=== PATIENT | male | born 1970 | race Caucasian/White ===

== ENCOUNTER 2016-07-26 13:04 | Emergency (ER) | payer OTHER ==
[~2016-07-26] VITALS: Ht 182.9 cm; Wt 99.8 kg
[~2016-07-26 13:04] MED LIST: ASPIRIN EC81 M1 PO; ATORVASTATIN CA80 MG PO; Aspirin PO; COLCHICINE0.6 M2 PO; FLEXERIL10 MG PO; HEPARIN 2525000 UNIT IV; IBUPROFEN600 M1 PO; LOPRESSOR 12.12.5 MG PO; MOTRIN800 MG PO; NAPROSYN375 MG PO; NAPROXEN500 M2 PO; Nitro-Bid TOP; OMEPRAZOLE20 M2 PO; OXYCODONE5 M1 PO; PANTOPRAZOLE SO40 M1 PO; PAROXETINE HCL30 M1 PO; PERCOCET 325 MG1 TA2 PO; PLAVIX 75MG TAB75 MG PO; PREDNISONE20 M1 PO; TIROFIBAN IV; TYLENOL TAB 32325 MG PO
[2016-07-26 14:58] LABS: ABSOLUTE BASOPHIL COUNT 0 /CUMM (0.0-0.2); ABSOLUTE EOSINOPHIL COUNT 0.2 /CUMM (0.0-0.7); ABSOLUTE GRANULOCYTE CT 3.6 /CUMM (1.4-6.5); ABSOLUTE LYMPH COUNT 1.5 /CUMM (1.2-3.4); ABSOLUTE MONOCYTE COUNT 0.5 /CUMM (0.10-0.60); BASOPHIL % 0.3 % (0.0-2.0); EOSINOPHIL % 3.4 % (0-5); HEMATOCRIT 41.7 % (42-52); MEAN CORPUSCULAR HGB 31.3 PG (27.0-31.0); MEAN CORPUSCULAR HGB CONC 34.8 G/DL (33.0-37.0); MEAN CORPUSCULAR VOLUME 89.9 FL (80.0-94.0); MEAN PLATELET VOLUME 9.2 FL (7.4-10.4); PLATELET COUNT 165 /CUMM (130-400); RBC DISTRIBUTION WIDTH 13.4 % (11.5-14.5); RED BLOOD CELL CT 4.64 /CUMM (4.70-6.10); WHITE BLOOD CELL COUNT 5.8 /CUMM (4.8-10.8)
--- NOTE | 2016-07-26 16:44 | ED GI/GU/ABDOMINAL COMPLAINT ---
History of Present Illness General Chief Complaint: Abdominal Pain/Flank Pain Stated Complaint: R SIDE FLANK PAIN Source: patient Exam Limitations: no limitations Vital Signs & Intake/Output Vital Signs & Intake/Output Vital Signs Date Time Temp Pulse Resp B/P Pulse O2 O2 Flow FiO2 Ox Delivery Rate 07/26 1831 85 136/84 07/26 1342 97.4 84 18 136/84 99 Room Air Allergies Coded Allergies: Penicillins (ITCH 04/17/16) poison joelle extract (LIPS SWELL, HIVES, BREATHING IS NOT AFFECTED PER PT ) poison oak extract (LIPS SWELL, HIVES, BREATHING NOT AFFECTED PER PT 04/17/16) poison sumac extract (LIPS SWELL, HIVES, BREATHING NOT AFFECTED PER PT 04/17/16) Reconcile Medications Aspirin (Ecotrin*) 81 MG TABLET.DR 2 TAB PO DAILY HEART/BLOOD (Reported) Colchicine 0.6 MG TABLET 1 TAB PO BID myopericarditis Ibuprofen 600 MG TABLET 1 TAB PO TID MYOPERICARDITIS (Reported) with food Oxycodone HCl/Acetaminophen (Percocet 5-325 MG Tablet) 5 MG-325 MG TABLET 1 TAB PO BID PRN PAIN Pantoprazole Sodium 40 MG TABLET.DR 1 TAB PO DAILY GI (Reported) Paroxetine HCl 30 MG TABLET 1 TAB PO QAM MENTAL HEALTH (Reported) Prednisone 20 MG TABLET 20 MG PO Q8 myopericarditis Triage Note: C/O PAIN IN RLQ SINCE YESTERDAY, WAS SEEN AT [facility] YESTERDAY FOR CHEST PAIN AND WAS DISCHARGED. TODAY FELL ON R SIDE WHICH INCREASED RLQ PAIN. Triage Nurses Notes Reviewed? yes Onset: Abrupt Duration: constant Timing: recent history Quality/Severity: sharpness Severity Numbers: 10 Location: right lower quadrant Radiation: no radiation Activities at Onset: none HPI: Patient is a 46-year-old male who presents to emergency room with a one-day history of right lower quadrant intermittent sharp stabbing severe pain patient states that he has been doubled over in pain when the onset has occurred. Patient was seen yesterday at [facility] for concerns of chest pain and was ruled out. Patient denies any cardiovascular symptoms at the time. Last bowel movement was within the last 24 hours no blood and no melena noted. Patient has able tolerate by mouth with no change in symptoms. No medications given prior to arrival. Patient does have a history of right nephrectomy Past History Travel History Traveled to [place] past 21 day No Medical History Any Pertinent Medical History? 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 BROTHER (hypertension and diabetes). FATHER ( at 44 from cancer). MOTHER Relation not specified for: FH: diabetes mellitus Hx Contributory? No Review of Systems Review of Systems Constitutional: Reports: no symptoms. EENTM: Reports: no symptoms. Respiratory: Reports: no symptoms. Cardiovascular: Reports: no symptoms. GI: Reports: see HPI, abdominal pain. Genitourinary: Reports: no symptoms. Musculoskeletal: Reports: no symptoms. Skin: Reports: no symptoms. Neurological/Psychological: Reports: no symptoms. Hematologic/Endocrine: Reports: no symptoms. Immunologic/Allergic: Reports: no symptoms. All Other Systems: Reviewed and Negative Physical Exam Physical Exam General Appearance: no apparent distress Gastrointestinal: normal bowel sounds, soft, MODERATE RIGHT LOWER QUADRANT PAIN, NO REBOUND TENDERNESS NO PERITONEAL SIGNS Comments: Well-developed well-nourished person in no acute distress HEENT: Normal EENT exam, extraocular motion intact, no nystagmus. Pupils equally round and reactive to light and accommodation. Nose is atraumatic. External auditory canal and Tympanic membranes clear. Pharynx normal. No swelling or edema. Neck: Supple, no lymphadenopathy, normal range of motion without pain or tenderness Back: Nontender, no CVA tenderness. Cardiovascular: Regular rate and rhythms no murmurs rubs or gallops, normal JVP Respiratory: Chest nontender. No respiratory distress.breath sounds clear to auscultation bilaterally Extremity: No edema, no calf tenderness to palpation, normal and equal pulses. Neuro: Alert oriented x3, motor sensory normal, cranial nerves II through XII grossly intact. Skin: No appreciable rash on exposed skin, skin is warm and dry. Psych: Mood and affect is normal, memory and judgment is normal. Core Measures ACS in differential dx? No Severe Sepsis Present: No Septic Shock Present: No Progress Differential Diagnosis: AAA, AMI, appendicitis, biliary colic, bowel obstruction , colon cancer, cholecystitis, diverticulitis, epididymitis, esophageal varices, gastritis, hepatitis, hernia, hemorrhoids, ischemic bowel, inflamm bowel dis, Dinah-Monica tear, orchitis, pancreatitis, prostatitis, peptic ulcer, PUD/GERD, perforated viscous, pyelonephritis, SBO, STD, testicular torsion, ureterolithiasis, urinary retention, urethritis, UTI/pyelo Plan of Care: Orders Procedure Date/time Status CBC WITHOUT DIFFERENTIAL 07/26 1441 Complete BASIC METABOLIC PANEL 07/26 144 Complete URINALYSIS 07/26 1353 Complete Laboratory Tests 07/26/16 1441: Anion Gap 11, Estimated GFR 59 L, BUN/Creatinine Ratio 10.8, Glucose 88, Calcium 9.2, CBC w Diff NO MAN DIFF REQ, RBC 4.64 L, MCV 89.9, MCH 31.3 H, RDW 13.4, MPV 9.2, Gran % 62.0, Lymphocytes % 25.5, Monocytes % 8.8, Eosinophils % 3.4, Basophils % 0.3, Absolute Granulocytes 3.6, Absolute Lymphocytes 1.5, Absolute Monocytes 0.5, Absolute Eosinophils 0.2, Absolute Basophils 0, PUBS MCHC 34.8, Urine Color YEL, Urine Clarity CLEAR, Urine pH 7.0, Ur Specific [place] <= 1.005, Urine Protein NEG, Urine Ketones NEG, Urine Nitrite NEG, Urine Bilirubin NEG, Urine Urobilinogen 0.2, Ur Leukocyte Esterase NEG, Ur Microscopic EXAM NOT REQUIRED, Urine Hemoglobin NEG, Urine Glucose NEG Patient on physical exam was in no apparent distress, was able tolerate by mouth without change in symptoms and denies any nausea or vomiting. CT scan and blood work was unremarkable. Patient was made aware of his results and patient was strongly advised to return to emergency with symptoms worsen in the follow-up with gastroenterology and he will comply. Upon discharge patient looks well and has no questions with his instructions. (DARIO PEÑA,JAKOB) Diagnostic Imaging: Viewed by Me: CT Scan. Radiology Impression: no acute abnormality Initial ED EKG: none Comments: PATIENT: JAKOB GARLAND PRESENT AGE: 46 PATIENT ACCOUNT NO: [id number] : 70 LOCATION: [facility] ORDERING PHYSICIAN: JAKOB PEÑA SERVICE DATE: 07/26/165616 EXAM TYPE: CAT - CT ABD & PELVIS W/O IV CONTRAS EXAMINATION: CT ABDOMEN AND PELVIS WITHOUT CONTRAST CLINICAL INFORMATION: Right lower quadrant abdominal pain. COMPARISON: CT abdomen and pelvis with contrast 12/01/2013. TECHNIQUE: Multidetector volumetric imaging was performed from the superior aspect of the liver through the pubic symphysis. Sagittal and coronal reformatted images were obtained on the technologist's workstation. DLP: 538 mGy-cm. FINDINGS: Limited evaluation of the solid abdominal viscera in the absence of intravenous contrast. LUNG BASES: The visualized lung bases are unremarkable. LIVER, GALLBLADDER, AND BILIARY TREE: The liver is normal in size, shape, and attenuation. No contour deforming hepatic lesion or biliary ductal dilatation is present. The gallbladder is unremarkable with no evidence of radiopaque gallstones, gallbladder wall thickening, or obvious pericholecystic inflammatory changes. PANCREAS: Unremarkable. SPLEEN: Unremarkable. ADRENAL GLANDS: Unremarkable. KIDNEYS AND URETERS: Redemonstrated are postsurgical changes related to right-sided nephrectomy. The left kidney is normal in size. No renal or ureteral stones are identified and there is no hydroureteronephrosis of the left kidney or left renal collecting system. BLADDER: Unremarkable. GASTROINTESTINAL TRACT: Normal anatomic orientation of the stomach relative to the duodenum. Normal caliber of abdominal and pelvic bowel loops, without evidence of obstruction or ileus. No circumferential bowel wall thickening with surrounding inflammatory changes to suggest an underlying infectious or inflammatory enterocolitis. Normal-appearing appendix within the right lower quadrant of the abdomen. No organizing intra-abdominal fluid collections or free intraperitoneal air. ABDOMINAL WALL: No significant hernia is appreciated. LYMPH NODES: No significant abdominal or pelvic adenopathy. VASCULAR: Normal course and caliber of the abdominal aorta and its branching vessels, without aneurysmal dilatation. Limited evaluation for vascular patency in the absence of intravenous contrast. PELVIC VISCERA: Unremarkable. OSSEOUS STRUCTURES: No acute osseous abnormality. Normal alignment of the imaged thoracolumbar spine. No visible destructive osseous lesions. IMPRESSION: No acute findings within the abdomen or pelvis to explain patient symptomatology. Stable postsurgical changes related to right-sided nephrectomy. Departure Departure Disposition: HOME OR SELF CARE Condition: Stable Clinical Impression Primary Impression: Abdominal pain Referrals: MISTY HIRSCH,ULYSSES BARRETT MD,ANGELA Santos (PCP/Family) Additional Instructions: As discussed begin the prescription of Percocet for breakthrough pain. Begin a 24-hour clear liquid and bland diet to rest bowels. If no better tomorrow follow up and establish a medicinal chemist Dr. JAY for further outpatient treatment. If symptoms worsen or she develop a concerning new symptoms return to emergency room immediately Departure Forms: Customer Survey General Discharge Information Prescriptions: Current Visit Scripts Oxycodone HCl/Acetaminophen (Percocet 5-325 MG Tablet) 1 TAB PO BID PRN PAIN #8 TAB
--- NOTE | 2016-07-26 18:01 | CT SCAN REPORT ---
EXAMINATION: CT ABDOMEN AND PELVIS WITHOUT CONTRAST CLINICAL INFORMATION: Right lower quadrant abdominal pain. COMPARISON: CT abdomen and pelvis with contrast 12/01/2013. TECHNIQUE: Multidetector volumetric imaging was performed from the superior aspect of the liver through the pubic symphysis. Sagittal and coronal reformatted images were obtained on the technologist's workstation. DLP: 538 mGy-cm. FINDINGS: Limited evaluation of the solid abdominal viscera in the absence of intravenous contrast. LUNG BASES: The visualized lung bases are unremarkable. LIVER, GALLBLADDER, AND BILIARY TREE: The liver is normal in size, shape, and attenuation. No contour deforming hepatic lesion or biliary ductal dilatation is present. The gallbladder is unremarkable with no evidence of radiopaque gallstones, gallbladder wall thickening, or obvious pericholecystic inflammatory changes. PANCREAS: Unremarkable. SPLEEN: Unremarkable. ADRENAL GLANDS: Unremarkable. KIDNEYS AND URETERS: Redemonstrated are postsurgical changes related to right-sided nephrectomy. The left kidney is normal in size. No renal or ureteral stones are identified and there is no hydroureteronephrosis of the left kidney or left renal collecting system. BLADDER: Unremarkable. GASTROINTESTINAL TRACT: Normal anatomic orientation of the stomach relative to the duodenum. Normal caliber of abdominal and pelvic bowel loops, without evidence of obstruction or ileus. No circumferential bowel wall thickening with surrounding inflammatory changes to suggest an underlying infectious or inflammatory enterocolitis. Normal-appearing appendix within the right lower quadrant of the abdomen. No organizing intra-abdominal fluid collections or free intraperitoneal air. ABDOMINAL WALL: No significant hernia is appreciated. LYMPH NODES: No significant abdominal or pelvic adenopathy. VASCULAR: Normal course and caliber of the abdominal aorta and its branching vessels, without aneurysmal dilatation. Limited evaluation for vascular patency in the absence of intravenous contrast. PELVIC VISCERA: Unremarkable. OSSEOUS STRUCTURES: No acute osseous abnormality. Normal alignment of the imaged thoracolumbar spine. No visible destructive osseous lesions. IMPRESSION: No acute findings within the abdomen or pelvis to explain patient symptomatology. Stable postsurgical changes related to right-sided nephrectomy.
[2016-07-26] MEDS ORDERED: PERCOCET 5-3251 EACH PO (18:19)
[2016-07-26 18:31] VITALS: BP 136/84
== END 2016-07-26 18:32 ==
LOC: ERH 13:04
PROVIDERS: Emergency Medicine
DX: R10.31 Right lower quadrant pain (principal)
CPT/HCPCS: 74176; 81003; 96374

== ENCOUNTER 2016-09-15 15:12 | Emergency (ER) | payer OTHER ==
[~2016-09-15] VITALS: Ht 190.5 cm; Wt 111.6 kg
[~2016-09-15 15:12] MED LIST changes: +PERCOCET 5-3251 EACH PO
--- NOTE | 2016-09-15 16:00 | CT SCAN REPORT ---
EXAMINATION: CT HEAD WITHOUT CONTRAST CLINICAL INFORMATION: Increasing confusion. Evaluate for head injury. COMPARISON: Noncontrast head CT 04/17/2016. TECHNIQUE: Contiguous axial imaging was performed from the skull base to vertex without intravenous administration of contrast. DLP: 529 mGy-cm FINDINGS: No acute intracranial abnormality. No acute intracranial hemorrhage, mass or mass effect or abnormal extra-axial fluid collections. The density within the dural venous sinuses is within normal limits. The ventricles are normal in size, without hydrocephalus. There are no focal areas of hypoattenuation within a vascular distribution to suggest acute transcortical ischemia. The basilar cisterns are patent. No acute calvarial abnormality is identified. Soft tissues appear unremarkable. A small air-fluid level is identified within the right maxillary sinus and there is minimal mucosal thickening of the sinus. There is also minimal mucosal thickening of the bilateral frontal sinuses as well as the ethmoid air cells. The remaining imaged paranasal sinuses and mastoid air cells are well aerated. IMPRESSION: No acute intracranial pathology.
--- NOTE | 2016-09-15 16:31 | ED MVC/FALL/TRAUMA COMPLAINT ---
History of Present Illness General Chief Complaint: Neuro Symptoms/ Deficit Stated Complaint: PER FAMILY: HALLUCINATING,CONFUSION,RECENT FALLS Source: patient Exam Limitations: no limitations Vital Signs & Intake/Output Vital Signs & Intake/Output Vital Signs Date Time Temp Pulse Resp B/P Pulse O2 O2 Flow FiO2 Ox Delivery Rate 09/15 1820 98.8 63 18 141/95 98 Room Air 09/15 1643 63 18 139/86 96 Room Air 09/15 1519 98.3 81 20 129/88 98 Room Air ED Intake and Output 09/16 0000 09/15 1200 Intake Total Output Total Balance Patient 246 lb Weight Allergies Coded Allergies: Penicillins (ITCH 09/15/16) poison joelle extract (LIPS SWELL, HIVES, BREATHING IS NOT AFFECTED PER PT ) poison oak extract (LIPS SWELL, HIVES, BREATHING NOT AFFECTED PER PT 09/15/16) poison sumac extract (LIPS SWELL, HIVES, BREATHING NOT AFFECTED PER PT 09/15/16) Reconcile Medications Amlodipine Besylate 5 MG TABLET 1 TAB PO DAILY BP (Reported) Aspirin (Ecotrin*) 81 MG TABLET.DR 2 TAB PO DAILY HEART/BLOOD (Reported) Colchicine 0.6 MG TABLET 1 TAB PO BID myopericarditis Ibuprofen 600 MG TABLET 1 TAB PO TID MYOPERICARDITIS (Reported) with food Lidocaine 5 % ADH..PATCH 1 PAT TOP DAILY PAIN (Reported) Pantoprazole Sodium 40 MG TABLET.DR 1 TAB PO DAILY GI (Reported) Paroxetine HCl 30 MG TABLET 1 TAB PO QAM MENTAL HEALTH (Reported) Triage Note: TRIAGE: PT TO ER WITH DAUGHTER C/C HEADACHE X 3 DAYS, FELL IN KITCHEN SATURDAY, FELL IN THE BATHROOM SATURDAY AND JUST SAT ONT HE FLOOR AT [facility] ON SATURDAY. NOTE FROM THAT DAUGHTER PROVIDED STATES THAT HE HAS BEEN FORGETTING CONVERSATIONS, IS ALWAYS TIRED AND SHAKEY, THAT HE CAN'T TIE HIS SHOES AND KEEPS HAVING THIS BEWILDERED LOOK ON HIS FACE. DAUGHTER ALSO STATES THAT HE KEEPS FORGETTING CONVERSATIONS. WAS SEEN 2-[address] [facility] ER FOR S/S OF C/P AND LEG SWELLING. DAUGHTER STATES HE FELL FROM THE LEG SWELLING AT THAT TIME. DAUGHTER STATES "THEY DIDN'T REALLY DO ANYTHING, MADE SURE HE COULD WALK AND THEN DISCHARGED HIM. PT MINIMALLY VERBAL AT TRIAGE. PT APPEARS TO BE USING HIS PHONE AT TRIAGE TEXTING. Triage Nurses Notes Reviewed? yes HPI: 46-year-old male arrived to triage to room 4 for evaluation of confusion, memory loss, frequent falls for the past 3 days along with headache. Patient has been having a frontal headache but denies any blurred vision, nausea or vomiting. He also has been experiencing chest pressure the past weeks according to his . The patient has a history of myocarditis, pericarditis but unknown his specific diagnosis because he has been seen by Dr. Keenan akins at [place] and has been told that his heart is fine. He uses lidocaine patches to his chest wall for pain. He has a medical history that has been complicated and has been worked up for the possibility of autoimmune disease. The pain is unspecific at this time in his chest, he is unable to describe it and rate the pain. He is complaining more of his head hurting mild to moderate, achiness. (VANESSA CAMACHO APRN) Past History Travel History Traveled to [place] past 21 day No Medical History Any Pertinent Medical History? 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 BROTHER (hypertension and diabetes). FATHER ( at 44 from cancer). MOTHER Relation not specified for: FH: diabetes mellitus Hx Contributory? No (VANESSA CAMACHO APRN) Review of Systems Review of Systems Constitutional: Reports: see HPI, diaphoresis. Eyes: Denies: no symptoms. Ears, Nose, Throat, Mouth: Denies: no symptoms. Respiratory: Denies: no symptoms. Cardiovascular: Denies: no symptoms. Gastrointestinal/Abdominal: Denies: no symptoms. Genitourinary: Denies: no symptoms. Musculoskeletal: Reports: joint pain, joint swelling. Skin: Denies: no symptoms. Neurological/Psychological: Reports: ataxia, cognitive dysfunction, headache. (VANESSA CAMACHO APRN) Physical Exam Physical Exam General Appearance: well developed/nourished, no apparent distress, alert, awake , comfortable Head: atraumatic, normal appearance Eyes: Bilateral: normal appearance, PERRL, EOMI. Ears, Nose, Throat, Mouth: moist mucous membrane, Tympanic normal Neck: normal inspection, supple, full range of motion, normal alignment Respiratory: normal breath sounds, chest non-tender, no respiratory distress, quiet respiration, lungs clear Cardiovascular: regular rate/rhythm Peripheral Pulses: 2+ radial (R), 2+ radial (L), 2+ dorsalis pedis (R), 2+ dorsalis pedis (L) Gastrointestinal: normal bowel sounds, soft, non-tender Back: normal inspection, normal range of motion Extremities: normal range of motion, pelvis stable Neurologic/Psych: awake, alert, oriented x 3, normal gait Skin: intact, normal color, warm/dry Core Measures ACS in differential dx? Yes Severe Sepsis Present: No Septic Shock Present: No (VANESSA CAMACHO APRN) Progress Differential Diagnosis: ICH, ELECTROLYTE IMBALANCE, acs, MIGRAINE, DELIRIUM, AUTOIMMUNE DISEASE UNDIAGNOSED Plan of Care: Orders Procedure Date/time Status Add-on Test (ER Only) 09/15 1740 Active WESTERGREN SED RATE 09/15 1740 Complete Saline Lock 09/15 171 Active Telemetry/Roofer Vinyl Coating 09/15 1717 Active EKG 09/15 1717 Active Add-on Test (ER Only) 09/15 1639 Active TROPONIN LEVEL 09/15 1539 Complete HIGH SENSITIVITY CRP 09/15 1539 Complete B-TYPE NATRIURETIC PEP (BNP) 09/15 1539 Complete THYROID STIMULATING HORMONE 09/15 1530 Complete ETHANOL 09/15 1530 Complete COMPREHENSIVE METABOLIC PANEL 09/15 1530 Complete CBC WITHOUT DIFFERENTIAL 09/15 1530 Complete Laboratory Tests 09/15/16 1756: ESR Westergren 25 H 09/15/16 1539: Anion Gap 11, Estimated GFR > 60, BUN/Creatinine Ratio 11.7, Glucose 76, Calcium 9.4, Total Bilirubin 0.7, AST 34, ALT 42, Alkaline Phosphatase 62, Troponin I 1.23 *H, C-React Prot High Sens 9.2 H, Cqv-T-Itwulsgdcrk Pept 50.0, Total Protein 7.2, Albumin 4.2, Globulin 3.0, Albumin/Globulin Ratio 1.4, TSH 1.560, CBC w Diff NO MAN DIFF REQ, RBC 5.01, MCV 93.0, MCH 31.6 H, RDW 13.7, MPV 9.5, Gran % 52.5, Lymphocytes % 29.4, Monocytes % 14.8 H, Eosinophils % 2.9, Basophils % 0.4, Absolute Granulocytes 2.8, Absolute Lymphocytes 1.6, Absolute Monocytes 0.8 H, Absolute Eosinophils 0.2, Absolute Basophils 0, PUBS MCHC 33.9 , Serum Alcohol < 10.0 09/15/16 1530: Methadone Screen Cancelled, Barbiturate Screen Cancelled, Ur Phencyclidine Scrn Cancelled, Amphetamines Screen Cancelled, U Benzodiazepines Scrn Cancelled, Urine Cocaine Screen Cancelled, Urine Cannabis Screen Cancelled Diagnostic Imaging: Viewed by Me: Radiology Read. Discussed w/RAD: Radiology Read. CXR Impression: no acute abnormality, no infiltrates, normal size heart, normal mediastinum Initial ED EKG: SINUS BRADYCARDIA WITH NONSPECIFIC st-t WAVE CHANGES Prior EKG: unchanged Comments: PATIENT: JAKOB GARLAND PRESENT AGE: 46 PATIENT ACCOUNT NO: [id number] : 70 LOCATION: [facility] ORDERING PHYSICIAN: CHEMA ORQUE MD SERVICE DATE: 09/15/16-1529 EXAM TYPE: CAT - CT HEAD WO IV CONTRAST EXAMINATION: CT HEAD WITHOUT CONTRAST CLINICAL INFORMATION: Increasing confusion. Evaluate for head injury. COMPARISON: Noncontrast head CT 04/17/2016. TECHNIQUE: Contiguous axial imaging was performed from the skull base to vertex without intravenous administration of contrast. DLP: 529 mGy-cm FINDINGS: No acute intracranial abnormality. No acute intracranial hemorrhage, mass or mass effect or abnormal extra-axial fluid collections. The density within the dural venous sinuses is within normal limits. The ventricles are normal in size, without hydrocephalus. There are no focal areas of hypoattenuation within a vascular distribution to suggest acute transcortical ischemia. The basilar cisterns are patent. No acute calvarial abnormality is identified. Soft tissues appear unremarkable. A small air-fluid level is identified within the right maxillary sinus and there is minimal mucosal thickening of the sinus. There is also minimal mucosal thickening of the bilateral frontal sinuses as well as the ethmoid air cells. The remaining imaged paranasal sinuses and mastoid air cells are well aerated. IMPRESSION: No acute intracranial pathology. DICTATED BY: JUSTINA PETERSEN MD DATE/TIME DICTATED:09/15/161553 FURNACE FIRER:ELIZABET DATE/TIME TRANSCRIBED:09/15/161553 CONFIDENTIAL, DO NOT COPY WITHOUT APPROPRIATE AUTHORIZATION. <Electronically signed in Other Vendor System> SIGNED BY: JUSTINA PETERSEN MD 09/15/16 1600 5:51 PM I spoke to Dr. Lopez about the positive troponin with no ECG changes and he recommended that we call you for medical record since he was being worked up at the time of his last admission for an autoimmune disease. Additional blood work added on. cASE also discussed with Dr. Roque. PATIENT: JAKOB GARLAND PRESENT AGE: 46 PATIENT ACCOUNT NO: [id number] : 70 LOCATION: [facility] ORDERING PHYSICIAN: VANESSA CAMACHO APRN SERVICE DATE: 09/15/16 EXAM TYPE: RAD - XRY-PORTABLE CHEST XRAY EXAMINATION: XR PORTABLE CHEST CLINICAL INFORMATION: Chest pain. COMPARISON: Chest x-ray dated 06/08/2016. TECHNIQUE: Portable AP semierect view of the chest was obtained. FINDINGS: The cardiomediastinal silhouette is within normal limits in size. Slight elevation of the right hemidiaphragm is again seen, unchanged. Lungs are well expanded. No focal consolidation, pulmonary edema, effusion or pneumothorax is seen. Old healed fracture deformity of the right mid clavicle is seen. Bony structures are otherwise unremarkable. IMPRESSION: Unchanged appearance of the chest with no acute cardiopulmonary process seen. DICTATED BY: WILVER HERNÁNDEZ MD DATE/TIME DICTATED:09/15/161750 FURNACE FIRER:ELIZABET DATE/TIME TRANSCRIBED:09/15/161750 CONFIDENTIAL, DO NOT COPY WITHOUT APPROPRIATE AUTHORIZATION. <Electronically signed in Other Vendor System> SIGNED BY: WILVER HERNÁNDEZ MD [id number]- Spoke to Dr. Dobbs at [facility] at [place]. We will transfer the patient down for further cardiac testing, echo and possible cardiac catheterization. According to accepting physician patient had cardiac cath which showed normal coronary arteries back in 2015. Based on his history of myopericarditis along with the possibility of autoimmune disease he is going to a higher level of care. Case discussed again with Dr. Roque and family. Patient has a bed and ambulance has been called. (VANESSA CAMACHO APRN) Departure Departure Time of Disposition: 1826 Disposition: OTHER [facility] (ACUTE) Condition: Stable Clinical Impression Primary Impression: Delirium Secondary Impressions: Elevated troponin Referrals: ANGELA BARRETT MD (PCP/Family) Departure Forms: Customer Survey General Discharge Information (VANESSA CAMACHO APRN) PA/BILL ADJUSTER Co-Sign Statement Statement: ED Attending supervision documentation- [X] I saw and evaluated the patient. I have also reviewed all the pertinent lab results and diagnostic results. I agree with the findings and the plan of care as documented in the PA's/BILL ADJUSTER's documentation. [X] I have reviewed the ED Record and agree with the PA's/BILL ADJUSTER's documentation. [] Additions or exceptions (if any) to the PAs/BILL ADJUSTER's note and plan are summarized below: [] (MYA HIRSCH,CHEMA Cotto)
[2016-09-15 16:39] LABS: ABSOLUTE BASOPHIL COUNT 0 /CUMM (0.0-0.2); ABSOLUTE EOSINOPHIL COUNT 0.2 /CUMM (0.0-0.7); ABSOLUTE GRANULOCYTE CT 2.8 /CUMM (1.4-6.5); ABSOLUTE LYMPH COUNT 1.6 /CUMM (1.2-3.4); ABSOLUTE MONOCYTE COUNT 0.8 /CUMM (0.10-0.60); BASOPHIL % 0.4 % (0.0-2.0); EOSINOPHIL % 2.9 % (0-5); GRANULOCYTE % 52.5 % (42.2-75.2); HEMATOCRIT 46.6 % (42-52); MEAN CORPUSCULAR HGB 31.6 PG (27.0-31.0); MEAN CORPUSCULAR HGB CONC 33.9 G/DL (33.0-37.0); MEAN PLATELET VOLUME 9.5 FL (7.4-10.4); PLATELET COUNT 178 /CUMM (130-400); RBC DISTRIBUTION WIDTH 13.7 % (11.5-14.5); RED BLOOD CELL CT 5.01 /CUMM (4.70-6.10); WHITE BLOOD CELL COUNT 5.3 /CUMM (4.8-10.8)
[2016-09-15] MEDS ORDERED: AMLODIPINE BESYL5 M1 PO (16:55)
[2016-09-15] MEDS ORDERED: LIDOCAINE1 EACH TOP (16:56)
[2016-09-15] MEDS ORDERED: NAPROXEN500 M2 PO (16:57)
--- NOTE | 2016-09-15 17:58 | RADIOLOGY REPORT ---
EXAMINATION: XR PORTABLE CHEST CLINICAL INFORMATION: Chest pain. COMPARISON: Chest x-ray dated 06/08/2016. TECHNIQUE: Portable AP semierect view of the chest was obtained. FINDINGS: The cardiomediastinal silhouette is within normal limits in size. Slight elevation of the right hemidiaphragm is again seen, unchanged. Lungs are well expanded. No focal consolidation, pulmonary edema, effusion or pneumothorax is seen. Old healed fracture deformity of the right mid clavicle is seen. Bony structures are otherwise unremarkable. IMPRESSION: Unchanged appearance of the chest with no acute cardiopulmonary process seen.
[2016-09-15 18:20] VITALS: BP 141/95
== END 2016-09-15 18:47 | disposition short-term general hospital (02) ==
LOC: ERH 15:12
PROVIDERS: Emergency Medicine
DX: R41.0 Disorientation, unspecified (principal); R77.8 Other specified abnormalities of plasma proteins
CPT/HCPCS: 80307; 93005; 93010; G0480

== ENCOUNTER 2017-07-24 11:19 | Emergency (ER) | payer OTHER ==
[~2017-07-24] VITALS: Ht 188 cm; Wt 108.9 kg
[~2017-07-24 11:19] MED LIST changes: +AMLODIPINE BESYL5 M1 PO; +BACLOFEN10 M1 PO; +DEXAMETHASONE4 M1 PO; +LIDOCAINE1 EACH TOP; +VITAMIN B-121000 MC3 PO
--- NOTE | 2017-07-24 11:45 | ED CARDIAC/CP/PALPITATIONS ---
History of Present Illness General Chief Complaint: Chest Pain Stated Complaint: CHEST TIGHTNESS/PAIN Source: patient Exam Limitations: no limitations Allergies Coded Allergies: Penicillins (ITCH 09/15/16) poison joelle extract (LIPS SWELL, HIVES, BREATHING IS NOT AFFECTED PER PT ) poison oak extract (LIPS SWELL, HIVES, BREATHING NOT AFFECTED PER PT 09/15/16) poison sumac extract (LIPS SWELL, HIVES, BREATHING NOT AFFECTED PER PT 09/15/16) Reconcile Medications Amlodipine Besylate 5 MG TABLET 1 TAB PO DAILY BP (Reported) Aspirin (Ecotrin*) 81 MG TABLET.DR 2 TAB PO DAILY HEART/BLOOD (Reported) Baclofen 10 MG TABLET 10 MG PO TID NEUROPATHY Colchicine 0.6 MG TABLET 1 TAB PO DAILY myocarditis (Reported) Cyanocobalamin (Vitamin B-12) 1,000 MCG TABLET 1,000 MCG PO DAILY SUPPLEMENT (Reported) Ibuprofen 600 MG TABLET 300 MG PO BID MYOPERICARDITIS (Reported) Pantoprazole Sodium 40 MG TABLET.DR 1 TAB PO DAILY GI (Reported) Paroxetine HCl 30 MG TABLET 1 TAB PO [facility] MENTAL HEALTH (Reported) Triage Note: PT C/O TIGHTNESS AND PRESSURE/STABBING PAIN SINCE 1030 TODAY. PAIN IS CONSTANT. STATES PAIN STARTED IN LEFT LEG THEN MOVED INTO CHEST. +SOB Triage Nurses Notes Reviewed? yes Onset: Abrupt Duration: hour(s): (1.5) Timing: recent history Quality/Severity: moderate, severe Location: LEFT SIDED CHEST Radiation: DOWN LEFT ARM Activities at Onset: none Prior Chest Pain/Card Workup: NSTEMI HPI: Patient is a 47-year-old male with history of end STEMI, pericarditis presenting to the emergency department with chief complaint of centralized chest pain that radiates to his left arm at times that started this morning suddenly around 10: 30 AM. Patient was sitting down when it started. Denies any associated nausea vomiting or shortness of breath. No palpitations. Nothing seems to make symptoms better or worse. Patient last saw his adjustment supervisor approximately 2-1/2 months ago. Has not taken aspirin in the same amount of time although he knows he is supposed to. Patient not on any blood thinners. Patient does report that he had neck surgery performed on June 06, he had a cervical spine fusion performed. Patient denying any numbness or tingling. No back pain. No neck pain. Also endorsing generalized abdominal discomfort with associated diarrhea and has been going on for the past couple days. Positive tactile fevers and chills. No sick contacts or recent travel. (Merry Almendarez) Vital Signs & Intake/Output Vital Signs & Intake/Output Vital Signs Date Time Temp Pulse Resp B/P B/P Pulse O2 O2 Flow FiO2 Mean Ox Delivery Rate 07/24 1349 97.6 66 18 147/81 98 Nasal 2.0L Cannula 07/24 1259 57 18 122/81 94 Room Air 07/24 1241 71 16 134/85 96 Room Air 07/24 1220 98 07/24 1219 83 18 135/82 98 Room Air 07/24 1130 97.1 75 20 144/90 98 Room Air (Phill HIRSCH,Juan Cotto) Past History Travel History Traveled to [place] past 21 day No Medical History Any Pertinent Medical History? 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 BROTHER (hypertension and diabetes). FATHER ( at 44 from cancer). MOTHER Relation not specified for: FH: diabetes mellitus Hx Contributory? No (Merry Almendarez) Review of Systems Review of Systems Constitutional: Reports: chills, fever. Comments Review of systems: See HPI, All other systems negative. Constitutional, no weight loss HEENT: No visual changes no sore throat no congestion Cardiovascular: No palpitation , orthopnea or ankle swelling Skin, no jaundice no rashes Respiratory: No cough sputum or hemoptysis GI: No nausea no vomiting , POS DIARRHEA : No dysuria No hematuria Muscle skeletal: no back pain, no neck pain, Neurologic: No numbness no confusion NO HEADACHES Psych: No stress anxiety or depression,. Heme/endocrine: No bruising no bleeding no polyuria or polydipsia Immunology: No splenectomy or history of AIDS (Merry Almendarez) Physical Exam Physical Exam General Appearance: well developed/nourished, no apparent distress, alert, awake , comfortable Cardiovascular: regular rate/rhythm Comments: Well-developed well-nourished person in no acute distress HEENT: Pupils equally round and reactive to light and accommodation. Nose is atraumatic. External auditory canal and Tympanic membranes clear. Pharynx normal. No swelling or edema. Neck:IN C-COLLAR Back: Nontender Cardiovascular: Regular rate and rhythms no murmurs rubs or gallops, normal JVP Respiratory: Chest nontender. No respiratory distress.breath sounds clear to auscultation bilaterally Abdomen: Soft, tender to palpation in the left lower quadrant with mild guarding , no rebound tenderness, nondistended, no appreciable organomegaly. Normal bowel sounds. No ascites Extremity: No edema, no calf tenderness to palpation, normal and equal pulses. Neuro: Alert oriented x3 Skin: No appreciable rash on exposed skin, skin is warm and dry. Psych: Mood and affect is normal, memory and judgment is normal. Core Measures ACS in differential dx? Yes CVA/TIA Diagnosis No Sepsis Present: No Sepsis Focused Exam Completed? No (Merry Almendarez) Progress Differential Diagnosis: AMI, aortic dissection, cholecystitis, CHF/pulm edema, musculoskeletal pain, myocarditis, pancreatitis, pericarditis, pneumonia, pulmonary embolism, PVCs/PACs, DIVERTICULITIS Plan of Care: Orders Procedure Date/time Status CTA CHEST-PULMONARY EMBOLISM 07/[address] ABD & PELVIS ANGIOGRAM 07/24 1214 Active TROPONIN LEVEL 07/24 1144 Complete PARTIAL THROMBOPLASTIN TIME 07/24 1144 Complete PROTHROMBIN TIME 07/24 1144 Complete LIPASE 07/24 1144 Complete COMPREHENSIVE METABOLIC PANEL 07/24 1144 Complete CBC WITHOUT DIFFERENTIAL 07/24 1144 Complete EKG 07/24 1120 Active Laboratory Tests 07/24/17 1207: Anion Gap 9, Estimated GFR > 60, BUN/Creatinine Ratio 12.5, Glucose 101 H, Calcium 9.5, Total Bilirubin 0.6, AST 23, ALT 45, Alkaline Phosphatase 66, Troponin I 0.40 *H, Total Protein 6.8, Albumin 4.0, Globulin 2.8, Albumin/ Globulin Ratio 1.4, Lipase 117, PT 11.0, INR 1.05, APTT 27, CBC w Diff NO MAN DIFF REQ, RBC 4.80, MCV 92.5, MCH 31.4 H, RDW 13.1, MPV 9.5, Gran % 67.8, Lymphocytes % 20.9, Monocytes % 9.4 H, Eosinophils % 1.7, Basophils % 0.2, Absolute Granulocytes 3.8, Absolute Lymphocytes 1.2, Absolute Monocytes 0.5, Absolute Eosinophils 0.1, Absolute Basophils 0, PUBS MCHC 34.0 On arrival patient given by mouth aspirin and 2 sublingual nitroglycerin without relief in pain. Positive troponin. Spoke with Dr. Lopez, recommending we contact adjustment supervisor at [place] to see if it would like patient there for cardiac cath. Spoke with Dr. Pollock, recommending we start IV heparin bolus and drip. Guaiac was negative. Patient stable. Patient went for CT of chest and abdomen. Still pending results. Diagnostic Imaging: Viewed by Me: CT Scan. Discussed w/RAD: CT Scan. Initial ED EKG: NSR (66 BPM) Prior EKG: unchanged (Merry Almendarez) Departure Departure Time of Disposition: 1347 Disposition: OTHER [facility] (ACUTE) Condition: Stable Clinical Impression Primary Impression: NSTEMI (non-ST elevated myocardial infarction) Referrals: Gisel Perez MD (PCP/Family) Departure Forms: Customer Survey General Discharge Information (Merry Almendarez) PA/SUIT ATTENDANT Co-Sign Statement Statement: ED Attending supervision documentation- [X] I saw and evaluated the patient. I have also reviewed all the pertinent lab results and diagnostic results. I agree with the findings and the plan of care as documented in the PA's/SUIT ATTENDANT's documentation. [X] I have reviewed the ED Record and agree with the PA's/SUIT ATTENDANT's documentation. [] Additions or exceptions (if any) to the PAs/SUIT ATTENDANT's note and plan are summarized below: [Chest pain since 10:30 with known coronary disease. Patient's troponin is 0.4. Patient's adjustment supervisor [facility] was called and the patient is to be transferred there. Upon started.] (Phill HIRSCH,Juan Cotto) Critical Care Note Critical Care Note Critical Care Time: 30-74 min (Merry Almendarez) [X] I saw and evaluated the patient. I have also reviewed all the pertinent lab results and diagnostic results. I agree with the findings and the plan of care as documented in the PA's/SUIT ATTENDANT's documentation. [X] I have reviewed the ED Record and agree with the PA's/SUIT ATTENDANT's documentation. [] Additions or exceptions (if any) to the PAs/SUIT ATTENDANT's note and plan are summarized below: [Chest pain since 10:30 with known coronary disease. Patient's troponin is 0.4. Patient's adjustment supervisor FRANK[facility] was called and the patient is to be transferred there. Upon started.] (Phill HIRSCH,Juan Cotto) Critical Care Note Critical Care Note Critical Care Time: 30-74 min (Merry Almendarez)
[2017-07-24 12:13] LABS: ABSOLUTE BASOPHIL COUNT 0 /CUMM (0.0-0.2); ABSOLUTE EOSINOPHIL COUNT 0.1 /CUMM (0.0-0.7); ABSOLUTE GRANULOCYTE CT 3.8 /CUMM (1.4-6.5); ABSOLUTE LYMPH COUNT 1.2 /CUMM (1.2-3.4); ABSOLUTE MONOCYTE COUNT 0.5 /CUMM (0.10-0.60); BASOPHIL % 0.2 % (0.0-2.0); EOSINOPHIL % 1.7 % (0-5); GRANULOCYTE % 67.8 % (42.2-75.2); HEMATOCRIT 44.5 % (42-52); MEAN CORPUSCULAR HGB 31.4 PG (27.0-31.0); MEAN CORPUSCULAR VOLUME 92.5 FL (80.0-94.0); MEAN PLATELET VOLUME 9.5 FL (7.4-10.4); PLATELET COUNT 174 /CUMM (130-400); RBC DISTRIBUTION WIDTH 13.1 % (11.5-14.5); WHITE BLOOD CELL COUNT 5.6 /CUMM (4.8-10.8)
[2017-07-24 12:21] LABS: PTT 27 SEC (25-37)
[2017-07-24 13:49] VITALS: BP 147/81
--- NOTE | 2017-07-24 14:51 | CT SCAN REPORT ---
EXAMINATION: CT ANGIOGRAM ABDOMEN AND PELVIS CLINICAL INFORMATION: 47-year-old male with abdominal pain. Evaluate for abdominal aorta aneurysm or diverticulitis. COMPARISON: CT images of the abdomen and pelvis from 07/26/2016. TECHNIQUE: CT angiography of the abdomen and pelvis was performed. The multidetector CT images of the abdomen and pelvis were obtained following the administration of Optiray 320 intravenous contrast. For contrast dose, please refer to the separately dictated chest CT report. Images were reviewed on a dedicated 3-D workstation. DLP: Please refer to the separately dictated chest CT report FINDINGS: HEPATOBILIARY: Liver has normal size, contour and attenuation. Gallbladder is physiologically distended. No radiopaque calculi, gallbladder wall edema or pericholecystic inflammatory change. PANCREAS: Unremarkable. SPLEEN: Unremarkable. ADRENAL GLANDS: No adrenal mass; no acute pathology compared to 07/26/2016. KIDNEYS, URETERS, BLADDER: The right kidney is surgically absent. Left kidney is normal. No nephrolithiasis, hydronephrosis or perinephric edema. The left ureter and urinary bladder are normal. GASTROINTESTINAL TRACT: Stomach is unremarkable. Bowel loops are normal in size. The appendix is normal. There are few scattered colonic diverticula without diverticulitis. No ascites or pneumoperitoneum. ABDOMINAL WALL: Small fat-containing umbilical hernia is unchanged. VASCULAR: The abdominal aorta remains normal in caliber; no aneurysm or dissection. The celiac trunk and its branches are widely patent. The superior and inferior mesenteric arteries are normal. The left kidney is supplied by 2 widely patent renal arteries, and the smaller artery supplies the upper pole. The common iliac, external iliac and internal iliac arteries are normal. LYMPH NODES: Normal. PELVIC VISCERA: Prostate gland and seminal vesicles are unremarkable. No pelvic free fluid. OSSEOUS STRUCTURES: The lumbar vertebra have normal height and alignment. Pelvic bones and proximal femurs remain intact. Sacroiliac joints are normal. IMPRESSION: 1. Abdominal aorta is normal. 2. Scattered colonic diverticula without diverticulitis. No acute findings along the gastrointestinal tract. 3. No acute findings within the abdomen or pelvis compared to 07/26/2016.
--- NOTE | 2017-07-24 15:01 | CT SCAN REPORT ---
EXAMINATION: CT ANGIOGRAM OF THE CHEST WITH CONTRAST (CT PULMONARY ANGIOGRAM FOR PE) CLINICAL INFORMATION: Chest pain. Evaluate for pulmonary embolism. COMPARISON: CXR from 05/13/2017. Chest CT from 06/08/2016. TECHNIQUE: Prior to contrast administration, noncontrast localization images were obtained. Subsequently, multidetector volumetric imaging was performed from the thoracic inlet to below the diaphragms following the administration of 95 mL Optiray 350 intravenous contrast. No contrast reaction reported. Sagittal, coronal, and MIP oblique sagittal reformatted images were obtained on the CT workstation, uploaded to PACS, and reviewed. Total exam dose-length product 1139 mGy-cm FINDINGS: QUALITY OF STUDY/CONTRAST BOLUS: Satisfactory. PULMONARY ARTERIES: No embolic filling defects within the main, lobar or segmental vessels. THORACIC AORTA: Thoracic aorta is normal in caliber; no aneurysm or dissection. There is a bovine configuration of the aortic arch. LUNGS AND PLEURA: Trachea and central airways are widely patent and normal in caliber. Mild, chronic pleural-based scarring at lung apices. Mild paraseptal emphysema. No pulmonary edema, consolidation, pneumothorax or pleural effusion. No interval development of a suspicious nodule or mass. MEDIASTINUM: The heart size is normal. No pericardial effusion. No evidence of septal bowing or right heart strain. The esophagus is unremarkable. The visualized portion of the thyroid gland is normal. LYMPHATICS: No pathologic sized axillary, hilar or mediastinal lymph nodes. UPPER ABDOMEN: No reflux of contrast into the hepatic veins. Note that findings in the abdomen and pelvis were dictated separately. No abdominal aorta aneurysm. No acute findings in the abdomen or pelvis compared to 07/26/2016. OSSEOUS STRUCTURES/CHEST WALL: There is a stable lipoma of the right axilla. Small Schmorl's node at the T6 superior endplate. No suspicious bone lesions. Thoracic vertebra have well preserved height and alignment. IMPRESSION: 1. No pulmonary embolism. 2. Mild paraseptal emphysema. 3. Thoracic aorta remains normal; no aneurysm or dissection. 4. No abdominal aortic aneurysm. No acute findings within the abdomen or pelvis (see separate report) compared to 07/26/2016.
== END 2017-07-24 14:14 | disposition short-term general hospital (02) ==
LOC: ERH 11:19
PROVIDERS: Physician Assistant
DX: I21.4 Non-ST elevation (NSTEMI) myocardial infarction (principal); R07.89 Other chest pain
CPT/HCPCS: 74174; 93005; 93010; 96374; 96375; 99291; J1644

== ENCOUNTER 2017-11-20 15:17 | Inpatient (IN) | payer OTHER ==
[~2017-11-20] VITALS: Ht 188 cm; Wt 102.8 kg
[~2017-11-20 15:17] MED LIST changes: +DIAZEPAM5 M1 PO; +MECLIZINE HCL25 MG PO
--- NOTE | 2017-11-20 15:30 | ED CARDIAC/CP/PALPITATIONS ---
History of Present Illness General Chief Complaint: Chest Pain Stated Complaint: CHEST PAIN Source: patient, old records Exam Limitations: no limitations Vital Signs & Intake/Output Vital Signs & Intake/Output Vital Signs Date Time Temp Pulse Resp B/P B/P Pulse O2 O2 Flow FiO2 Mean Ox Delivery Rate 11/20 2121 20 116/80 96 Room Air 11/20 1909 82 20 114/75 96 Room Air 11/20 1820 62 20 110/74 96 Room Air 11/20 1720 70 20 115/76 96 Room Air 11/20 1637 90 20 126/83 96 Room Air 11/20 1547 98.1 11/20 1535 88 20 118/74 97 Room Air Allergies Coded Allergies: Penicillins (ITCH 10/03/17) poison joelle extract (LIPS SWELL, HIVES, BREATHING IS NOT AFFECTED PER PT ) poison oak extract (LIPS SWELL, HIVES, BREATHING NOT AFFECTED PER PT 10/03/17) poison sumac extract (LIPS SWELL, HIVES, BREATHING NOT AFFECTED PER PT 10/03/17) Triage Note: [facility] C/O CHEST PAIN. PER EMS PT HAD CHEST PAIN AND WOKE UP ON THE GROUND. EMS GAVE 243MG ASA PO AND 2 O.4MG NITRO. PT TOOK 81MG ASA PO PRIOR TO EMS ARRIVAL. PAIN WAS INTIALLY AN 8 OUT OF 10 WITH EMS AND 4/10 U/A AT THE ER. PT C/O A TINGLING SENSATION IN ALL 4 EXTREMITIES. PT DENIES ANY OTHER COMPLAINTS. Triage Nurses Notes Reviewed? yes Onset: Abrupt Duration: day(s): (1), constant Timing: recent history Quality/Severity: moderate, aching Location: central Radiation: no radiation Activities at Onset: none Prior Chest Pain/Card Workup: heart attack Nitro Today/Relief: 0.4 mg x 1, provided by EMS Aspirin Today: 325 mg x 1, provided by EMS Associated Symptoms: syncope HPI: 47-year-old male history of coronary artery disease hypertension renal cancer status post nephrectomy presents to the ER for evaluation after he states he woke up around 7:30 this morning with substernal chest pain nonradiating. He states that's been coming and going throughout the day. He states he is outside doing gardening when the next thing he remembers is the document management consultant above him patient had an unwitnessed syncopal episode unknown period of time. Patient was administered aspirin in route and nitroglycerin without improvement however on my arrival the patient states the pain has since resolved on its own. He denies any associated shortness of breath is also complaining of posterior headache. No neck or back pain arm pain and jaw pain abdominal pain nausea vomiting. His history is significant and he was recently admitted to [facility] for a NSTEMI. he denies etoh, drug or tobacoo use (Jakob Michel) Reconcile Medications Amlodipine Besylate 5 MG TABLET 1 TAB PO DAILY BP (Reported) Aspirin (Sarah Chewable Aspirin) 81 MG TAB.CHEW 81 MG PO DAILY PROPHYLAXIS ( Reported) Diazepam 5 MG TABLET 1 TAB PO Q8H PRN MUSCLE SPASMS (Reported) Hydrochlorothiazide 25 MG TABLET 1 TAB PO DAILY HYPERTENSION (Reported) Pantoprazole Sodium 40 MG TABLET.DR 1 TAB PO DAILY GI (Reported) Paroxetine HCl 30 MG TABLET 1 TAB PO QAM MENTAL HEALTH (Reported) Simvastatin (Simvastatin*) 10 MG TABLET 1 TAB PO QPM HIGH CHOLESTEROL ( Reported) (Lupe HIRSCH,Dario Ahn) Past History Travel History Traveled to [place] past 21 day No Medical History Any Pertinent Medical History? see below for history Neurological: NONE EENT: NONE Cardiovascular: CARDIAC CATH 2011, 2014 MYOCARDITIS Respiratory: obstructive sleep apnea, pulmonary nodules Gastrointestinal: NONE Hepatic: NONE Renal: R RENAL CA R KIDNEY REMOVAL Musculoskeletal: NONE (bilateral endoscopic knee surg) Psychiatric: NONE Endocrine: NONE Blood Disorders: CHRONIC HEP C TREATED INTERFERON Cancer(s): R KIDNEY CA lung nodules TIPPLE OILER/Reproductive: NONE History of MRSA: No History of VRE: No History of CDIFF: No Tetanus Vaccine: 11/29/13 Surgical History Surgical History: CARDIAC CATHETERIZATION, RIGHT-SIDED NEPHRECTOMY Psychosocial History Who do you live with Family Services at Home None What is your primary language Macanese Family History Family History, If Any: MOTHER (hypertension). BROTHER (hypertension and diabetes). FATHER ( at 44 from cancer). MOTHER Relation not specified for: FH: diabetes mellitus Hx Contributory? No (Jakob Michel) Review of Systems Review of Systems Constitutional: Reports: see HPI. Comments Review of systems: See HPI, All other systems negative. Constitutional, no chills no fever HEENT: no sore throat no congestion Cardiovascular: chest pain Skin: no rashes, no change in skin Respiratory: No dyspnea no cough no sputum GI: No nausea no vomiting, : No dysuria No hematuria, no frequency Muscle skeletal: No joint pain, no back pain Neurologic: , no headache Heme/endocrine: No bruising (Jakob Michel) Physical Exam Physical Exam General Appearance: well developed/nourished, alert, awake Cardiovascular: regular rate/rhythm Comments: Well-developed well-nourished person in no acute distress HEENT: Normal EENT exam; PERRL, EOMI. HEAD is atraumatic. moist mucous membranes. Neck: Supple, nontender normal range of motion Back: Nontender, no CVA tenderness. Full range of motion Cardiovascular: Regular rate and rhythms no murmurs rub Respiratory: Chest nontender.There were no bony deformities, no asymmetry. No respiratory distress. Patient speaking in full complete sentences. Breath sounds clear to auscultation bilaterally: NO W/R/R Abdomen: Soft, nontender nondistended, no appreciable organomegaly. Normal bowel sounds. No rebound/guarding Rectal: Heme negative stool. Extremity: No edema, full range of motion of extremities Neuro: Alert oriented x3, motor sensory normal, cranial nerves II through XII grossly intact. There were no obvious focal neurologic abnormalities. Skin: No appreciable rash on exposed skin, skin is warm and dry. Psych: Mood and affect is normal, memory and judgment is normal. Core Measures ACS in differential dx? Yes CVA/TIA Diagnosis No Sepsis Present: No Sepsis Focused Exam Completed? No (Jakob Michel) Progress Differential Diagnosis: AMI, aortic dissection, atrial fibrillation, musculoskeletal pain, pericarditis, pneumonia, pneumothorax, pulmonary embolism, unstable angina, INTOXICATION Plan of Care: Orders Procedure Date/time Status Nothing by Mouth 11/21 B Active CBC WITHOUT DIFFERENTIAL 11/21 599 Active BASIC ELECTROLYTES PLUS BUN&CR 11/21 599 Active TROPONIN LEVEL 11/21 0300 Active EKG 11/21 0300 Active TROPONIN LEVEL 11/20 2100 Active EKG 11/20 2100 Active Add-on Test (ER Only) 11/21 2043 Active CULTURE,URINE 11/21 2043 Active URINALYSIS 11/21 2043 Active Lab Add-on Test 11/21 2035 Active Lab Add-on Test 11/20 2034 Active Saline Lock 11/21 2027 Active Pathway - chart 11/21 2027 Active House Staff 11/21 2027 Active Code Status 11/21 2027 Active Admit to inpatient 11/21 1951 Active Patient Data 11/20 1844 Active Add-on Test (ER Only) 11/20 1717 Active URINE DRUG SCREEN FOR ER ONLY 11/20 1623 Complete THYROID STIMULATING HORMONE 11/20 1543 Active PARTIAL THROMBOPLASTIN TIME 11/20 1543 Complete PHOSPHORUS 11/20 1543 Active MAGNESIUM 11/20 1543 Active GLYCOSYLATED HGB 11/20 1543 Active FREE T4 11/20 1543 Active D-DIMER 11/20 1543 Complete CREATINE PHOSPHOKINASE 11/20 1543 Active B-TYPE NATRIURETIC PEP (BNP) 11/20 1543 Active Telemetry/Supervisor Money Room 11/20 1530 Active TROPONIN LEVEL 11/20 1528 Active PROTHROMBIN TIME 11/20 1528 Complete ETHANOL 11/20 1528 Active COMPREHENSIVE METABOLIC PANEL 11/20 1528 Active CBC WITHOUT DIFFERENTIAL 11/20 1528 Complete EKG 11/20 1523 Active TRC EVALUATION (GEN) 11/20 UNK Active VTE Mechanical Prophylaxis 11/20 UNK Active Vital Signs 11/20 UNK Active MISTAKE 11/20 UNK Active Precautions 11/20 UNK Active NIH Stroke Scale 11/20 UNK Active Intake & Output 11/20 UNK Active Hemoccult 11/20 UNK Active Current Medications Sig/Elian Start time Last Medication Dose Stop Time Status Admin Aspirin 81 MG DAILY 11/21 0900 AC (Aspirin) Omeprazole 40 MG DAILY AC 11/21 0700 AC (Prilosec) Acetaminophen 650 MG Q6P PRN 11/20 2029 AC (Tylenol) Atorvastatin Calcium 80 MG 1700 11/20 2030 AC (Lipitor) Morphine Sulfate 2 MG Q4P PRN 11/20 2029 AC (MORPHINE SULFATE) Laboratory Tests 11/20/17 2100: Troponin I Pending 11/20/17 1825: Urine Opiates Screen < 100, Methadone Screen < 40, Barbiturate Screen < 60, Ur Phencyclidine Scrn < 6.00, Amphetamines Screen < 100, U Benzodiazepines Scrn < 85, Urine Cocaine Screen < 50, Urine Cannabis Screen < 5.00 11/20/17 1543: Anion Gap 9, Estimated GFR > 60, BUN/Creatinine Ratio 12.5, Glucose 90, Hemoglobin A1c Pending, Calcium 9.5, Phosphorus 3.5, Magnesium 1.9, Total Bilirubin 0.7, AST 24, ALT 40, Alkaline Phosphatase 77, Creatine Kinase 67, Troponin I 0.33 *H, Rwt-E-Sxzazdhlopy Pept 103, Total Protein 7.2, Albumin 4.3, Globulin 2.9, Albumin/Globulin Ratio 1.5, TSH 1.840, Free T4 1.19, PT 11.3, INR 1.04, APTT 29, D-Dimer High Sensitivty < 200, CBC w Diff NO MAN DIFF REQ, RBC 4.99, MCV 91.2, MCH 31.1 H, MCHC 34.2, RDW 12.9, MPV 9.7, Gran % 68.2, Lymphocytes % 20.1 L, Monocytes % 9.6 H, Eosinophils % 1.9, Basophils % 0.2, Absolute Granulocytes 4.1, Absolute Lymphocytes 1.2, Absolute Monocytes 0.6, Absolute Eosinophils 0.1, Absolute Basophils 0, Serum Alcohol < 10.0 11/20/17 1533: D-Dimer High Sensitivty Cancelled Microbiology 11/21 2043 URINE ROUT: Urine Culture - ORD Patient denies pain on my initial evaluation resting comfortably CAT scan labs ordered case discussed with Dr. Andrade agrees with plan 1630 D/W DR BASHIR- ADVISED PT CAN GO TO TELE, DOES NOT REQUIRE ICU, HEPARIN GTT, NPO FOR POSSIBLE TRANSFER FOR CATH IN AM 1650 Dario Andrade MD evaluated the patient, patient now states he has pain 7 out of 10 not improved with nitroglycerin paste and sublingual nitroglycerin morphine ordered discussed with the plan of care and need for admission which she is in agreement with CASE D/W DR FERREIRA WILL ADMIT Diagnostic Imaging: Viewed by Me: Radiology Read, CT Scan. Discussed w/RAD: Radiology Read, CT Scan. Radiology Impression: PATIENT: JAKOB GARLAND PRESENT AGE: 47 PATIENT ACCOUNT NO: [id number] : 70 LOCATION: [facility] ORDERING PHYSICIAN: Jakob PEÑA SERVICE DATE: 11/20/17 EXAM TYPE: RAD - XRY-PORTABLE CHEST XRAY EXAMINATION: XR PORTABLE CHEST CLINICAL INFORMATION: Syncope. Chest pain. COMPARISON: 10/26/2017. TECHNIQUE: Portable frontal view of the chest was obtained. FINDINGS: The lungs are well expanded. There is no focal consolidation, edema, or effusion. No pneumothorax. The cardiomediastinal silhouette is within normal limits. No acute osseous abnormality. Cervical fusion hardware noted. IMPRESSION: No acute pulmonary findings. DICTATED BY: Yordy Mcelroy MD DATE/TIME DICTATED:11/20/171608 HOTEL STAFF MEMBER:ELIZABET DATE/TIME TRANSCRIBED:11/20/171608 CONFIDENTIAL, DO NOT COPY WITHOUT APPROPRIATE AUTHORIZATION. <Electronically signed in Other Vendor System> SIGNED BY: Yordy Mcelroy MD 11/20/17 1614, PATIENT: JAKOB GARLAND PRESENT AGE: 47 PATIENT ACCOUNT NO: [id number] : 70 LOCATION: [facility] ORDERING PHYSICIAN: Jakob PEÑA SERVICE DATE: 11/20/17 EXAM TYPE: CAT - CT HEAD WO IV CONTRAST EXAMINATION: CT HEAD WITHOUT CONTRAST CLINICAL INFORMATION: Syncope. Headache. COMPARISON: TECHNIQUE: Contiguous axial imaging was performed from the skull base to vertex without intravenous contrast. DLP: 541 mGy-cm. FINDINGS: There is no evidence of acute intracranial hemorrhage or territorial infarction. No abnormal mass effect or midline shift is seen. Gloria to white matter differentiation is well preserved. No extra-axial fluid collections are identified. No hydrocephalus. No significant volume loss. There is no abnormal attenuation within the brain parenchyma. The osseous structures and soft tissues are normal. The mastoid air cells and visualized portions of the paranasal sinuses are well aerated. IMPRESSION: No acute intracranial pathology. DICTATED BY: Yordy Mcelroy MD DATE/TIME DICTATED:11/20/171648 HOTEL STAFF MEMBER:ELIZABET DATE/ TIME TRANSCRIBED:11/20/171648 CONFIDENTIAL, DO NOT COPY WITHOUT APPROPRIATE AUTHORIZATION. <Electronically signed in Other Vendor System> SIGNED BY: Yordy Mcelroy MD 11/20/17 1655 Initial ED EKG: normal intervals, normal p-waves, normal QRS complex, normal sinus rhythm Prior EKG: unchanged Rhythm Strip: normal sinus rhythm (Salazar PEÑA,Jakob) Comments: Dr. Bashir called after reviewing Epic records. He recommends discontinuing heparin drip at this time. (Derik Montanez MD) Departure Departure Time of Disposition: 174 Disposition: STILL A PATIENT Condition: Stable Clinical Impression Primary Impression: NSTEMI (non-ST elevated myocardial infarction) Secondary Impressions: Syncope Referrals: Chris HIRSCH,Gisel (PCP/Family) Departure Forms: Customer Survey General Discharge Information Admission Note Spoke With: Chris Ferreira MD Documentation of Exam: Documentation of any treatments & extenuating circumstances including Concerns Regarding Discharge (functional status, medication knowledge or non-compliance, living conditions, etc.) that warrant an admission rather than observation: trend troponin's IV heparin cardiology consult premature discharge would BE medically harmful. (Jakob Michel) PA/SUPERVISOR INSPECTING Co-Sign Statement Statement: ED Attending supervision documentation- [X] I saw and evaluated the patient. I have also reviewed all the pertinent lab results and diagnostic results. I agree with the findings and the plan of care as documented in the PA's/SUPERVISOR INSPECTING's documentation. Patient presents for evaluation of a syncopal episode prior to arrival. Physical examination reveals a conversant gentleman with a nonfocal neurologic examination. [] I have reviewed the ED Record and agree with the PA's/SUPERVISOR INSPECTING's documentation. [] Additions or exceptions (if any) to the PAs/SUPERVISOR INSPECTING's note and plan are summarized below: [] (Lupe HIRSCH,Dario Ahn) PA/SUPERVISOR INSPECTING Co-Sign Statement Statement: ED Attending supervision documentation- [] I saw and evaluated the patient. I have also reviewed all the pertinent lab results and diagnostic results. I agree with the findings and the plan of care as documented in the PA's/SUPERVISOR INSPECTING's documentation. [] I have reviewed the ED Record and agree with the PA's/SUPERVISOR INSPECTING's documentation. [] Additions or exceptions (if any) to the PAs/SUPERVISOR INSPECTING's note and plan are summarized below: [] (Lisseth HIRSCH,Derik) Critical Care Note Critical Care Note Critical Care Time: non-applicable (Jakob Michel)
[2017-11-20 15:54] LABS: ABSOLUTE BASOPHIL COUNT 0 /CUMM (0.0-0.2); ABSOLUTE EOSINOPHIL COUNT 0.1 /CUMM (0.0-0.7); ABSOLUTE GRANULOCYTE CT 4.1 /CUMM (1.4-6.5); ABSOLUTE LYMPH COUNT 1.2 /CUMM (1.2-3.4); ABSOLUTE MONOCYTE COUNT 0.6 /CUMM (0.10-0.60); BASOPHIL % 0.2 % (0.0-2.0); EOSINOPHIL % 1.9 % (0-5); GRANULOCYTE % 68.2 % (42.2-75.2); HEMATOCRIT 45.5 % (42-52); MEAN CORPUSCULAR HGB 31.1 PG (27.0-31.0); MEAN CORPUSCULAR HGB CONC 34.2 G/DL (33.0-37.0); MEAN CORPUSCULAR VOLUME 91.2 FL (80.0-94.0); MEAN PLATELET VOLUME 9.7 FL (7.4-10.4); PLATELET COUNT 188 /CUMM (130-400); RBC DISTRIBUTION WIDTH 12.9 % (11.5-14.5); RED BLOOD CELL CT 4.99 /CUMM (4.70-6.10)
[2017-11-20 16:11] LABS: PT 11.3 SEC (9.4-12.5)
--- NOTE | 2017-11-20 16:14 | RADIOLOGY REPORT ---
EXAMINATION: XR PORTABLE CHEST CLINICAL INFORMATION: Syncope. Chest pain. COMPARISON: 10/26/2017. TECHNIQUE: Portable frontal view of the chest was obtained. FINDINGS: The lungs are well expanded. There is no focal consolidation, edema, or effusion. No pneumothorax. The cardiomediastinal silhouette is within normal limits. No acute osseous abnormality. Cervical fusion hardware noted. IMPRESSION: No acute pulmonary findings.
--- NOTE | 2017-11-20 16:55 | CT SCAN REPORT ---
EXAMINATION: CT HEAD WITHOUT CONTRAST CLINICAL INFORMATION: Syncope. Headache. COMPARISON: 10/26/2017 TECHNIQUE: Contiguous axial imaging was performed from the skull base to vertex without intravenous contrast. DLP: 541 mGy-cm. FINDINGS: There is no evidence of acute intracranial hemorrhage or territorial infarction. No abnormal mass effect or midline shift is seen. Gloria to white matter differentiation is well preserved. No extra-axial fluid collections are identified. No hydrocephalus. No significant volume loss. There is no abnormal attenuation within the brain parenchyma. The osseous structures and soft tissues are normal. The mastoid air cells and visualized portions of the paranasal sinuses are well aerated. IMPRESSION: No acute intracranial pathology.
[2017-11-20] MEDS ORDERED: SIMVASTATIN10 M1 PO (17:23)
[2017-11-20] MEDS ORDERED: HYDROCHLOROTHIA25 M1 PO (17:23)
[2017-11-20] MEDS ORDERED: BAYER CHEWABLE81 MG PO (17:24)
[2017-11-20 17:36] LABS: PTT 29 SEC (25-37)
--- NOTE | 2017-11-20 20:54 | History & Physical ---
Annika Sanchez MD 11/20/172052: General Information and HPI MD Statement: I have seen and personally examined JAKOB GARLAND and documented this H&P. The patient is a 47 year old M who presented with a patient stated chief complaint of [loss of consciousness, chest pain]. Source of Information: patient, old records Exam Limitations: no limitations History of Present Illness: Patient is a 47-year-old male with past medical history of recurrent myopericarditis, multiple hospitalizations for syncope found to have severe cervical stenosis status post cervical spine fusion, status post cardiac catheterization 3 (no history of stents), recent hospitalization at [facility] 1 week prior to this admission for similar symptoms now presenting with an unwitnessed syncopal episode and chest pain. Patient states that at approximately 6:30 AM he woke up with epigastric chest pain described as a pressure/stabbing sensation radiating to his right breast and down his arms and feet. Patient reports numbness and tingling down both his arms. Patient states that pain is not exacerbated by movement or relieved by rest. Patient states that aside from his medications which include aspirin he did not take any other medication for the pain. Patient states that the pain did not subside over the course of the day. States that at approximately noon he went to check his mail and walked approximately 1/10 mile and became short of breath. After which he walked back to his kitchen and passed out. States that the next thing he remembers is having EMS at his side after he was found by his son who returned home from school in the afternoon. Patient denies any prodromal symptoms of warmth, diaphoresis, palpitations, nausea, lightheadedness , dizziness prior to this episode. Patient states that overnight he woke up a few times with palpitations however did not notice this during the day. Patient states after his syncopal episode he felt nauseous and was diaphoretic. Patient denies any loss of bladder or bowel function. Patient was given 243 mg of aspirin by mouth and nitroglycerin 0.4mg 2 in the field with improvement of his chest pain initially an 8 out of 10 sided to a 4 out of 10. Patient denies any fever, chills, abdominal pain, vomiting, hematuria/dysuria. Patient reports over the past few weeks he has had alternating diarrhea and constipation. Denies any melena, bright red blood per stool, hematemesis. Patient reports that he had bilateral lower extremity swelling this past week and was recently started on hydrochlorothiazide 25 mg by his primary care one day prior to admission. Patient states that one week ago he had a similar presentation and was taken to [place] where he was found to have elevated troponin. An echocardiogram was done however patient does not recall the results. Per the records patient has had multiple episodes of syncope with chronically elevated troponin and extensive workup with multiple cardiac caths requiring no stents. Past medical history: As above Past surgical history: Status post right nephrectomy, cervical spinal fusion, bilateral meniscal tears, history of retinal detachment Family history: Significant for mother - heart failure, grandmother- SC, in 60s Social history: Patient is a former smoker, states that he quit in 2003 previously smoking 1 pack per day for 18 years, denies alcohol use or other illicit drug use Patient in the ED received morphine, nitroglycerin and was initially started on an IV heparin drip after speaking with cardiology. Due to chronically elevated troponin and no significant EKG changes, IV heparin drip was stopped. Allergies/Medications Allergies: Coded Allergies: Penicillins (ITCH 10/03/17) poison joelle extract (LIPS SWELL, HIVES, BREATHING IS NOT AFFECTED PER PT ) poison oak extract (LIPS SWELL, HIVES, BREATHING NOT AFFECTED PER PT 10/03/17) poison sumac extract (LIPS SWELL, HIVES, BREATHING NOT AFFECTED PER PT 10/03/17) Past History Travel History Traveled to [place] past 21 day No Medical History Neurological: NONE EENT: NONE Cardiovascular: hypertension, hyperlipidemia, CARDIAC CATH 2011, 2014 MYOCARDITIS Respiratory: obstructive sleep apnea, pulmonary nodules Gastrointestinal: NONE Hepatic: hepatitis C Renal: nephrectomy, R RENAL CA R KIDNEY REMOVAL Musculoskeletal: spinal stenosis (bilateral endoscopic knee surg) Psychiatric: depression Endocrine: NONE Blood Disorders: CHRONIC HEP C TREATED INTERFERON Cancer(s): R KIDNEY CA lung nodules 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 BROTHER (hypertension and diabetes). FATHER ( at 44 from cancer). MOTHER Relation not specified for: FH: diabetes mellitus Psychosocial History Who Do You Live With? spouse Services at Home: None Primary Language: Thai ETOH Use: denies use Illicit Drug Use: denies illicit drug use Functional Ability ADLs Independent: dressing, eating, toileting, bathing. Ambulation: independent IADLs Independent: shopping, housework, finances, food prep, telephone, transportation , medication admin. Review of Systems Review of Systems Constitutional: Reports: unexplained weight loss (20 lb over past few weeks). EENTM: Reports: blurred vision, double vision. Cardiovascular: Reports: chest pain, palpitations, syncope. Respiratory: Reports: short of breath. GI: Reports: nausea. Genitourinary: Reports: no symptoms. Musculoskeletal: Reports: see HPI (right foot pain). Skin: Reports: no symptoms. Neurological/Psychological: Reports: numbness, tingling. Hematologic/Endocrine: Reports: no symptoms. Immunologic/Allergic: Reports: no symptoms. Exam & Diagnostic Data Last 24 Hrs of Vital Signs/I&O Vital Signs Date Time Temp Pulse Resp B/P B/P Pulse O2 O2 Flow FiO2 Mean Ox Delivery Rate 11/20 1909 82 20 114/75 96 Room Air 11/20 1820 62 20 110/74 96 Room Air 11/20 1720 70 20 115/76 96 Room Air 11/20 1637 90 20 126/83 96 Room Air 11/20 1547 98.1 11/20 1535 88 20 118/74 97 Room Air Intake & Output 11/20 1600 11/20 0800 11/20 0000 Intake Total 0 Output Total Balance 0 Intake, Oral 0 Patient 228 lb Weight Weight Reported by Patient Measurement Method Physical Exam General Appearance Alert, Oriented X3, Cooperative, No Acute Distress Skin No Rashes Skin Temp/Moisture Exam: Warm/Dry Sepsis Skin Exam (color): Normal for Ethnicity HEENT Atraumatic, PERRLA, EOMI, Mucous Membr. moist/pink Neck Supple, No JVD, +2 Carotid Pulse wo Bruit, No LAD Lymphatic Cervical nl Cardiovascular Regular Rate, Normal S1, Normal S2, No Murmurs Lungs Clear to Auscultation, Normal Air Movement Abdomen Normal Bowel Sounds, Soft, No Tenderness, No Hepatospenomegaly, No Masses Neurological Normal Speech, Strength at 5/5 X4 Ext, Normal Tone, Sensation Intact, Cranial Nerves 3-12 NL Extremities No Clubbing, No Cyanosis, No Edema, Normal Pulses, No Tenderness/ Swelling Vascular Normal Pulses, Pulses Symmetrical Last 24 Hrs of Labs/Abel: Laboratory Tests 11/20/17 1825: Urine Opiates Screen < 100, Methadone Screen < 40, Barbiturate Screen < 60, Ur Phencyclidine Scrn < 6.00, Amphetamines Screen < 100, U Benzodiazepines Scrn < 85, Urine Cocaine Screen < 50, Urine Cannabis Screen < 5.00 11/20/17 1543: Anion Gap 9, Estimated GFR > 60, BUN/Creatinine Ratio 12.5, Glucose 90, Hemoglobin A1c Pending, Calcium 9.5, Phosphorus 3.5, Magnesium 1.9, Total Bilirubin 0.7, AST 24, ALT 40, Alkaline Phosphatase 77, Creatine Kinase 67, Troponin I 0.33 *H, Kqs-[id number]-Xderacfpmtq Pept Pending, Total Protein 7.2, Albumin 4.3, Globulin 2.9, Albumin/Globulin Ratio 1.5, TSH Pending, Free T4 Pending, PT 11.3, INR 1.04, APTT 29, D-Dimer High Sensitivty < 200, CBC w Diff NO MAN DIFF REQ, RBC 4.99, MCV 91.2, MCH 31.1 H, MCHC 34.2, RDW 12.9, MPV 9.7, Gran % 68.2, Lymphocytes % 20.1 L, Monocytes % 9.6 H, Eosinophils % 1.9, Basophils % 0.2, Absolute Granulocytes 4.1, Absolute Lymphocytes 1.2, Absolute Monocytes 0.6, Absolute Eosinophils 0.1, Absolute Basophils 0, Serum Alcohol < 10.0 11/20/17 1533: D-Dimer High Sensitivty Cancelled Microbiology 11/21 2043 URINE ROUT: Urine Culture - ORD Diagnostic Data EKG Results NSR, 75, QTC: 425, T wave flattening aVF and V1 CXR Results No acute cardiopulmonary process Other Results CT head: No acute intracranial pathology. Assessment/Plan Assessment: Patient is a 47-year-old male with past medical history of recurrent myopericarditis, EZE on CPAP, HTN, Hepatitis C s/p interferon, multiple hospitalizations for syncope found to have severe cervical stenosis status post cervical spine fusion, status post cardiac catheterization 3 (no history of stents), recent hospitalization at [facility] 1 week prior to this admission for similar symptoms now presenting with an unwitnessed syncopal episode and chest pain. Patient on admission had stable vital signs, chest pain improved with nitroglycerin and patient is currently chest pain free. Patient's troponin was elevated to 0.33, however this appears to be chronically elevated with previous troponin in October of 0.31. Patient's EKG did not show any signficant ST or T wave changes. Althought patient's ZO risk score is elevated (4 points - giving him a 20% risk at 14 days of all cause mortality, new/recurrent SC or severe ischemia requiring vascularization) he recently had a cardiac cath in July of 2017 which was clear. Patient's syncopal episode is of unclear etiology. He recently was seen at [facility] 1 week prior and had a Holter monitor recently with Dr. Stovall which reportedly showed no arrhythmia. Patient has had recurrent episodes of syncope requiring multiple admissions. In April of 2017 patient was found to have severe cervical stenosis and underwent a cervical spinal fusion. Since then patient has had multiple episodes of syncope over the past few months. Despite previous extensive work up it is unclear what the etiology of these syncopal episodes is. 1. Chest pain - rule out ACS 2. Chronically elevated troponin 3. Unwitnessed syncopal episode of unclear etiology, history of recurrent syncopal episodes 4. History of cervical radiculopathy and severe cervical stenosis s/p cervical spinal fusion 5. History of EZE on CPAP 6. History of HTN, Hepatitis C s/p interferon, RCC s/p R nephrectomy Plan: Admit to tele Continuous telemetry monitoring Serial EKG and trop Cardiology consult with Dr. Lopez - spoke to Dr. Lopez, will continue to monitor off IV heparin at this time Obtain records from recent admission at [facility] 1 week prior including ECHO results Nitro PRN pain Oxygen supplementation as needed Continue home medications: aspirin, simvistatin, protonix, paxil, norvasc NPO pending EKG and trops and further evaluation by cardiology Continue CPAP at night for EZE Neurochecks Consider neuro consult in AM ESR, CRP, U/A DVT PPx: Lovenox, ALPS Diet: NPO Code: Full code As Ranked By This Provider Problem List: 1. Syncope and collapse 2. Chest pain 3. Troponin level elevated Core Measures/Misc (04/07) Acute Coronary Syndrome ACS Diagnosis: No Congestive Heart Failure Congestive Heart Failure Diagnosis No Cerebrovascular Accident CVA/TIA Diagnosis: No VTE (View Protocol) VTE Risk Factors Age>40 No Mechanical VTE Prophylaxis d/t N/A MechProphylax Ordered No VTE Pharm Prophylaxis d/t NA PharmProphylax ordered Sepsis (View protocol) Sepsis Present: No Wilbert Mota 11/21/17 0139: General Information and HPI Allergies/Medications Home Med list Amlodipine Besylate 5 MG TABLET 1 TAB PO DAILY BP (Reported) Aspirin (Sarah Chewable Aspirin) 81 MG TAB.CHEW 81 MG PO DAILY PROPHYLAXIS ( Reported) Diazepam 5 MG TABLET 1 TAB PO Q8H PRN MUSCLE SPASMS (Reported) Hydrochlorothiazide 25 MG TABLET 1 TAB PO DAILY HYPERTENSION (Reported) Ibuprofen 600 MG TABLET 1 TAB PO TID pain (Reported) with food Nitroglycerin (Nitroglycerin Patch) 0.4 MG/HOUR PATCH.TD24 1 PATCH TD DAILY PRN CHEST PAIN (Reported) Pantoprazole Sodium 40 MG TABLET.DR 1 TAB PO DAILY GI (Reported) Paroxetine HCl 30 MG TABLET 1 TAB PO QAM MENTAL HEALTH (Reported) Simvastatin (Simvastatin*) 10 MG TABLET 1 TAB PO QPM HIGH CHOLESTEROL ( Reported) Resident Review Statement Resident Statement: examined this patient, discussed with development intern, agreed with development intern, reviewed EMR data (avail), discussed with nursing, discussed with case mgmt, reviewed images, amended to note Other Findings: This is a 47-year-old male with medical history of recurrent myopericarditis, multiple hospitalizations for syncope found to have severe cervical stenosis status post cervical spine fusion 2016, status post cardiac catheterization 3 ( no history of stents) most recent one was in July 2017, hypertension, hyperlipidemia, obstructive sleep apnea, pulmonary nodules, RCC s/p Right nephrectomy, chronic elevated troponin!. Patient presented to the emergency department via EMS status post loss of consciousness and complaining of chest pain. p.t stated that he yamile recent hospitalization at [facility] 1 week prior to this admission for similar symptoms. Patient states that at approximately 6:30 AM he woke up with epigastric chest pain described as a pressure/stabbing sensation radiating to his right breast and down his arms and feet. Patient states that pain is not exacerbated by movement or relieved by rest. Patient states that the pain did not subside over the course of the day. States that at approximately noon he went to check his mail and walked approximately 1/10 mile and became short of breath. After which he walked back to his kitchen and passed out. He stated that his son found him on the floor and he called 911, the p.t deny any seizure activity, bowel or urinary incontinence. Patient received a full dose of aspirin by EMS prior to arrival to the emergency department. In the emergency department patient received doses of sublingual nitroglycerin and he stated that after that the chest pain improved also he was started on IV heparin drip and received 4 mg of IV morphine. The ED staff spoke with Juan C Funes MD will contact them back and altered him to DC the heparin drip giving the patient history of chronic elevated troponin and the most recent cardiac cath did not showed any underlying coronary artery disease process. Also he spoke with us stated that the patient is under the care of Dr. Lopez, we contact Dr. Lopez and discussed the case with him and he is agreeable to discontinuing IV heparin and he stated that to obtain ESR and C-reactive protein giving to previous history of myocarditis and if the patient developed pain we can give the patient high dose of the ibuprofen and keep trending his troponin and EKG, also he stated that the patient develop any EKG changes with elevated troponin he recommended put the patient back on heparin drip and the no need to repeat echocardiogram as the patient had 1 at [facility] one week ago. Physical examination, lab and imaging as above. Problem list: -Chest pain with ch.elevated trop unclear etiology can be due to myopericarditis. -Unwitnessed syncopal episode, unclear etiology. Plan: -Admit patient to telemetry floor -Vitals every shift, and neuro check every 4 -Serial troponin and EKG -Nitroglycerin paste as needed for chest pain -Cardiology consultation -Hold off echocardiogram obtain medical records from [facility]. -Hold off anticoagulation with heparin drip for now. -Keep the patient nothing by mouth -Obtain magnesium, TSH, free T4 -Obtain urinalysis -Neurology consultation in a.m. -Continue home medication -Pain pathway -DVT prophylaxis subcutaneous heparin -Full code Fabrizio HIRSCH, [facility] 11/21/17 0233: Attending Review Statement Attending Statement Attending Statement: examined this patient, discuss w/resident/PA/MANAGER LINUX, agreed w/resident/PA/MANAGER LINUX, reviewed images, amended to note Attending Assessment/Plan: 47 yo M with h/o recurrent myopericarditis ?autoimmune with 3 negative cardiac cath (2011, 2014, 2017), Hep C s/p interferon, HTN, RCC s/p right nephrectomy, EZE on CPAP, severe cervical spinal stenosis s/p spine decompression surgery ( Apr 2017), is here today for evaluation of chest pain and syncopal episode. Patient woke up this AM and started having intermittent left sided/ substernal chest pressure associated with palpitations. Later in the afternoon, he went out to get his mail and felt short of breath. He got back home and the next thing he remembers is EMS next to him. It is unclear as to how long he was passed out for. He reports his chest pain got better after nitro and morphine but is slowly re-occuring. Please note, this is patient's 4th ER visit for this year, initially seen here in Jul 2017 transferred to [place] for cardiac cath for NSTEMI (normal coronaries ). In September 2017, he had a fall down concrete stairs, was evaluated at [facility] but he left AMA. The next day he came to [facility] for ?syncopal episode, two sets of troponin were done and he was released from ER itself. Troponin at that time was 0.29-0.30. Trending back, troponin has been chronically elevated. In October 2017, he came for dizziness/ vertigo/ near syncope discharged from ER again noted was chronic troponin elevation. Patient was previously being followed by Dr. Zheng but recently he switched to Dr. Stovall. Patient had a 24-hour Holter done on November 08 -results pending. On November 13 he was admitted to [facility] for palpitations ( pounding in the chest) and syncope. An echo and carotid dopplers were done and patient was discharged on November 15. Vitals stable. Exam as above. Labs are unremarkable except for troponin 0.33. Urine tox negative. Alcohol <10. CXR no acute findings. CT head: no acute pathology. EKG: sinus rhythm with T-wave flattening inferior leads (old), no acute changes, Qtc 425. Echo (2015): EF 60%, concentric LVH, small pericardial effusion. As per initial discussion of ER PA with packing line worker Dr. Funes, patient was started on IV heparin for NSTEMI. I discussed with PA about these being non- acute findings. Later, Dr. Funes called back and requested to stop heparin as this does not seem to be an acute event. Assessment and plan: 1. Syncope and collapse recurrent ?arrhythmias, ?drop attacks, low probability for PE 2. Chest pain with chronic elevated troponin ?recurrent myocarditis, not an acute NSTEMI. 3. Essential hypertension 4. Sleep apnea on nocturnal CPAP 5. H/o cervical stenosis s/p decompression surgery - Admit to Telemetry - Neurochecks - Check orthostats - Serial EKG and troponin - Continue aspirin, statin, nitropatch daily - Obtain echo and carotid doppler results from [facility] - Obtain Holter results from Dr. Stovall's office - Cardio consult (Dr. Lopez) - Continue ibuprofen 600 TID and prilosec - Patient was previously on colchicine+ibuprofen but he has been off colchicine for past 3 months. - Check ESR, CRP, proBNP - Consider Neuro consult to further evaluate recurrent syncope/ drop attacks DVT ppx Lovenox. Full code.
--- NOTE | 2017-11-20 22:15 | Admission Certification ---
Admission Certification Certification Statement - As attending physician, I certify that at the time of - admission, based on clinical presentation, severity of - symptoms, need for further diagnostic testing and - therapeutic interventions, and risk of adverse outcomes - without in-hospital treatment, in my clinical assessment, - this patient requires an acute hospital stay for a minimum - of two nights or longer. I have also considered psychsocial - factors such as support system, advanced age, financial - issues, cognitive issues, and failed out-patient treatments, - past re-admission history, safety of patient, and lack of - compliance as applicable. Specific rationale supporting this admission is: Chest pain, recurrent syncope, elevated troponin.
[2017-11-20 22:32] VITALS: BP 112/78
[2017-11-20] MEDS ORDERED: IBUPROFEN600 M1 PO (23:51)
[2017-11-20] MEDS ORDERED: NITROGLYCERIN1 EACH TD (23:52)
[2017-11-21 03:58] LABS: ABSOLUTE BASOPHIL COUNT 0 /CUMM (0.0-0.2); ABSOLUTE EOSINOPHIL COUNT 0.1 /CUMM (0.0-0.7); ABSOLUTE GRANULOCYTE CT 3.6 /CUMM (1.4-6.5); ABSOLUTE LYMPH COUNT 1.7 /CUMM (1.2-3.4); ABSOLUTE MONOCYTE COUNT 0.7 /CUMM (0.10-0.60); BASOPHIL % 0.4 % (0.0-2.0); EOSINOPHIL % 2.2 % (0-5); HEMATOCRIT 43.8 % (42-52); MEAN CORPUSCULAR HGB 30.8 PG (27.0-31.0); MEAN CORPUSCULAR HGB CONC 33.7 G/DL (33.0-37.0); MEAN CORPUSCULAR VOLUME 91.6 FL (80.0-94.0); MEAN PLATELET VOLUME 10.4 FL (7.4-10.4); PLATELET COUNT 170 /CUMM (130-400); RBC DISTRIBUTION WIDTH 13.2 % (11.5-14.5); RED BLOOD CELL CT 4.78 /CUMM (4.70-6.10); WHITE BLOOD CELL COUNT 6.2 /CUMM (4.8-10.8)
[2017-11-21 06:53] VITALS: BP 128/76
--- NOTE | 2017-11-21 07:28 | PN- Housestaff ---
Hodan HIRSCH,P[place] 11/21/17 0727: Subjective Follow-up For: chest pain syncope Tele-Events Since Last Visit: sinus rhythm, no events Subjective: patient is complaining of some right sided neck and upper chest pain at rest no palpitations or dyspnea Review of Systems Constitutional: Reports: see HPI. Objective Last 24 Hrs of Vital Signs/I&O Vital Signs Date Time Temp Pulse Resp B/P B/P Pulse O2 O2 Flow FiO2 Mean Ox Delivery Rate 11/21 1235 Room Air Room Air 11/21 0956 52 110/76 11/21 0653 97.6 51 18 128/76 94 Room Air 11/20 2232 98.2 51 18 112/78 97 11/20 2121 20 116/80 96 Room Air 11/20 1909 82 20 114/75 96 Room Air 11/20 1820 62 20 110/74 96 Room Air 11/20 1720 70 20 115/76 96 Room Air 11/20 1637 90 20 126/83 96 Room Air 11/20 1547 98.1 11/20 1535 88 20 118/74 97 Room Air Intake & Output 11/21 1600 11/21 0800 11/21 0000 Intake Total 110 200 Output Total Balance 110 200 Intake, IV 10 Intake, Oral 100 200 Patient 101.718 kg 102.54 kg Weight Weight Bed scale Measurement Method Physical Exam General Appearance: Alert, Oriented X3, Cooperative, No Acute Distress Neck: Supple, No JVD Cardiovascular: Regular Rate, Normal S1, Normal S2, No Murmurs Lungs: Clear to Auscultation, Normal Air Movement Abdomen: Normal Bowel Sounds, Soft, No Tenderness, No Masses Extremities: No Clubbing, No Cyanosis, No Edema, Normal Pulses Current Medications: Current Medications Sig/Elian Start time Last Medication Dose Route Stop Time Status Admin Acetaminophen 650 MG Q6P PRN 11/20 2029 AC PO Amlodipine Besylate 5 MG DAILY 11/21 09 AC 11/21 PO 0956 Aspirin 81 MG DAILY 11/21 09 AC 11/21 PO 0956 Atorvastatin Calcium 80 MG 1700 11/20 2030 AC 11/21 PO 0024 Heparin Sodium 5,000 UNIT Q8 11/21 0600 AC 11/21 (Porcine) SC 0554 Heparin Sodium 0 .STK-MED ONE 11/20 1700 DC (Porcine) .ROUTE Heparin Sodium 25,000 UNIT Q24H 11/20 1645 DC 11/20 (Porcine) IV 1710 Sodium Chloride 500 ML Heparin Sodium 4,000 UNIT ONCE ONE 11/20 1645 DC 11/20 (Porcine) IV 11/20 1646 1700 Ibuprofen 600 MG Q8 11/21 0600 DC 11/21 PO 0554 Ibuprofen 600 MG Q8 11/21 0230 DC PO Melatonin 5 MG AT BEDTIME 11/21 2100 AC PO Metoprolol Tartrate 0 .STK-MED ONE 11/20 2106 DC PO Metoprolol Tartrate 12.5 MG BID 11/20 2100 DC PO Morphine Sulfate 2 MG Q4P PRN 11/20 2030 AC 11/21 IV 1036 Morphine Sulfate 0 .STK-MED ONE 11/20 1656 DC .ROUTE Morphine Sulfate 4 MG ONCE ONE 11/20 1645 DC 11/20 IV 11/20 1646 1655 Nitroglycerin 0.4 MG Q24 PRN 11/21 0900 AC TOP Nitroglycerin 0 .STK-MED ONE 11/20 1639 DC TOP Nitroglycerin 0 .STK-MED ONE 11/20 1639 DC SL Nitroglycerin 0.4 MG ONCE ONE 11/20 1630 DC 11/20 SL 11/20 1631 1638 Nitroglycerin 0.5 GM ONCE ONE 11/20 1630 DC 11/20 TOP 11/20 1631 1638 Omeprazole 40 MG DAILY AC 11/21 0700 AC 11/21 PO 0702 Paroxetine HCl 30 MG DAILY 11/21 0900 AC 11/21 PO 0956 Patient Medication 1 ED ONE ONE 11/21 1200 DC Teaching ED 11/21 1201 Sodium Chloride 1,000 ML ONCE ONE 11/20 2345 DC 11/21 IV 11/21 1304 0024 Last 24 Hrs of Lab/Abel Results Last 24 Hrs of Labs/Mics: Laboratory Tests 11/21/17 0946: Troponin I 0.29 *H 11/21/17 0617: Urine Color YEL, Urine Clarity CLEAR, Urine pH 6.0, Ur Specific Cut Off 1.015, Urine Protein NEG, Urine Ketones NEG, Urine Nitrite NEG, Urine Bilirubin NEG, Urine Urobilinogen 0.2, Ur Leukocyte Esterase NEG, Ur Microscopic EXAM NOT REQUIRED, Urine Hemoglobin NEG, Urine Glucose NEG 11/21/17 0300: Troponin I 0.34 *H 11/21/17 0300: Anion Gap 10, Estimated GFR > 60, BUN/Creatinine Ratio 13.6, Jhu-U-Ihaxrhfwlgo Pept 64.7, CBC w Diff NO MAN DIFF REQ, RBC 4.78, MCV 91.6, MCH 30.8, MCHC 33.7, RDW 13.2, MPV 10.4, Gran % 58.0, Lymphocytes % 27.8, Monocytes % 11.6 H, Eosinophils % 2.2, Basophils % 0.4, Absolute Granulocytes 3.6, Absolute Lymphocytes 1.7, Absolute Monocytes 0.7 H, Absolute Eosinophils 0.1, Absolute Basophils 0, ESR Westergren 13 H 11/20/17 2100: Troponin I 0.30 *H 11/20/17 1825: Urine Opiates Screen < 100, Methadone Screen < 40, Barbiturate Screen < 60, Ur Phencyclidine Scrn < 6.00, Amphetamines Screen < 100, U Benzodiazepines Scrn < 85, Urine Cocaine Screen < 50, Urine Cannabis Screen < 5.00 11/20/17 1543: Anion Gap 9, Estimated GFR > 60, BUN/Creatinine Ratio 12.5, Glucose 90, Hemoglobin A1c 5.3, Calcium 9.5, Phosphorus 3.5, Magnesium 1.9, Total Bilirubin 0.7, AST 24, ALT 40, Alkaline Phosphatase 77, Creatine Kinase 67, Troponin I 0.33 *H, C-Reactive Prot, Quant 0.8, Fyv-U-Tpazotbdcdc Pept 103, Total Protein 7.2, Albumin 4.3, Globulin 2.9, Albumin/Globulin Ratio 1.5, TSH 1.840, Free T4 1.19, PT 11.3, INR 1.04, APTT 29, D-Dimer High Sensitivty < 200, CBC w Diff NO MAN DIFF REQ, RBC 4.99, MCV 91.2, MCH 31.1 H, MCHC 34.2, RDW 12.9, MPV 9.7, Gran % 68.2, Lymphocytes % 20.1 L, Monocytes % 9.6 H, Eosinophils % 1.9, Basophils % 0.2, Absolute Granulocytes 4.1, Absolute Lymphocytes 1.2, Absolute Monocytes 0.6, Absolute Eosinophils 0.1, Absolute Basophils 0, Serum Alcohol < 10.0 11/20/17 1533: D-Dimer High Sensitivty Cancelled Microbiology 11/21 0617 URINE ROUT: Urine Culture - RECD Assessment/Plan Assessment: 47 year old male with past medical history of recurrent myopericarditis and chest pain with several negative cardiac catheterization most recently 07/2017, EZE on CPAP, HTN, HCV s/p interferon, multiple hospitalizations for syncope found to have severe cervical stenosis s/p cervical spine fusion hospitalized last week at [facility] for similar symptoms presented with chest pain follow by unwitnessed syncopal episode. Chest pain with chronically elevated troponin: Very atypical chest pain complaints, duration, onset, aggravating/relieving factors Discontinue NSAIDs, continue morphine/nitro for analgesia Serial EKG and troponins Troponins 0.31 -> 0.33 -> 0.30 -> 0.34 No ischemic EKG changes Flat troponin curve, never had a normal troponin since initial stay in [address] Lopez Reportedly negative cardiac catheterization x 3 performed at [facility] Obtain [place] records Continue aspirin, statin, beta jose Unremarkable echocardiogram here in 2016 and recently at [place] Recurrent syncope: NCHCT-no acute intracranial pathology Orthostatics vitals were negative No events on telemetry monitoring Admitted at [place], same complaints 1 week ago Consider neurology consultation and carotid dopplers Obtain [facility] records There is some documented reports of negative Holter monitor with Dr. Stovall Patient reports to me he has never followed up with Dr. Stovall (cardiology) but was referred EZE: Continue CPAP HTN: Continue metoprolol, nitroglycerin, norvasc RCC s/p R nephrectomy: Renal function normal, creatinine 1.1 HCV s/p interferon treatment: Liver function normal Heart healthy diet DVT ppx-lovenox Full code Problem List: 1. Syncope 2. Chest pain 3. Troponin level elevated Pain Ratin Pain Location: right neck/chest Pain Goal: Pain 4 or less Pain Plan: morphine/nitro Tomorrow's Labs & Rationales: none Jah Lay MD 11/21/17 1037: Attending MD Review Statement Attending Statement Attending MD Statement: examined this patient, discuss w/resident/PA/CARPENTER APPRENTICE, agreed w/resident/PA/CARPENTER APPRENTICE, reviewed EMR data (avail) Attending Assessment/Plan: 47M PMH recurrent myopericarditis, Hep C s/p interferon, HTN, RCC s/p right nephrectomy, EZE on CPAP, negative cardiac cath in 2011, 2014, Jaunary 2017, presents with right sided chest and neck pain with positive troponin 0.34 and normal EKG. Patient has a long history of elevated troponin but normal coronaries on cath x3, and has never had a cardiac MRI or biopsy. 1. NSTEMI 2. History of myopericarditis Plan - Continue on telemetry - Trend cardiac enzymes and EKG - Obtain records for previous cardiac workup - Morphine 2mg q3h PRN, may increase to 4mg if not sedated with 2mg and if pain is uncontrolled - Continue home medications - Cardiology consult - DVT PPx
[2017-11-21 14:41] VITALS: BP 122/78
--- NOTE | 2017-11-21 16:41 | Cons- Cardiology ---
General Information and HPI Consulting Request Date of Consult: 11/21/17 Requested By: Jah Lay MD Reason for Consult: Chest pain and positive troponin I. Source of Information: patient, old records Exam Limitations: no limitations History of Present Illness: Mr. Roland Nichols is a 47-year-old male with a history of former long- standing tobacco use, hypertension, obstructive sleep apnea on CPAP, right renal cell carcinoma s/p nephrectomy, chronic hepatitis C s/p therapy with interferon, and recurrent myopericarditis (October 2014; March 2016; May 2016; August 2016; September 2016; February 2017; April 2017; July 2017;) on a suspected autoimmune who presented to the ED via ambulance yesterday afternoon, after his son found him on the floor of his home, unconscious and called 911. Mr. Nichols recalls awakening yesterday morning at approximately 6:30 AM and experiencing chest pain in and hand swelling, tingling, and numbness. He went to get his mail at approximately 12:30 PM and after returning inside was on his way to fill a water bottle and the next thing he remembers he was surrounded by first responders. He denied any prodromal symptoms, other than as described above. He recalls being admitted to [facility] last week for similar complaints and had a modest troponin elevation. An echocardiogram was performed during that hospitalization and thinks he was told that this looked okay. He states that he has now undergone 3 negative cardiac catheterizations (2011; 2014; 2017). He was also experiencing recurrent falls secondary to his legs "giving out" and the discovery of severe cervical spinal stenosis for which he underwent spinal fusion. He was initially hospitalized at [facility] (10/22-10/28/1903/10/2015), followed by [facility] hospitalization (10/27-10/28/2014) for what was initially felt to be a late entry NSTEMI with troponin I elevation that prompted the transfer for cardiac catheterization given continued episodes of chest discomfort. At the cardiac catheterization he was found to have normal epicardial coronary arteries and preserved left ventricular systolic function by left ventriculography. These findings raised the possibility that the troponin I elevation was on the basis of some type of myocardial inflammation and he improved with standard therapy. Allergies/Medications Allergies: Coded Allergies: Penicillins (ITCH 10/03/17) poison joelle extract (LIPS SWELL, HIVES, BREATHING IS NOT AFFECTED PER PT ) poison oak extract (LIPS SWELL, HIVES, BREATHING NOT AFFECTED PER PT 10/03/17) poison sumac extract (LIPS SWELL, HIVES, BREATHING NOT AFFECTED PER PT 10/03/17) Home Med List: Amlodipine Besylate 5 MG TABLET 1 TAB PO DAILY BP (Reported) Aspirin (Sarah Chewable Aspirin) 81 MG TAB.CHEW 81 MG PO DAILY PROPHYLAXIS ( Reported) Diazepam 5 MG TABLET 1 TAB PO Q8H PRN MUSCLE SPASMS (Reported) Hydrochlorothiazide 25 MG TABLET 1 TAB PO DAILY HYPERTENSION (Reported) Ibuprofen 600 MG TABLET 1 TAB PO TID pain (Reported) with food Nitroglycerin (Nitroglycerin Patch) 0.4 MG/HOUR PATCH.TD24 1 PATCH TD DAILY PRN CHEST PAIN (Reported) Pantoprazole Sodium 40 MG TABLET.DR 1 TAB PO DAILY GI (Reported) Paroxetine HCl 30 MG TABLET 1 TAB PO QAM MENTAL HEALTH (Reported) Simvastatin (Simvastatin*) 10 MG TABLET 1 TAB PO QPM HIGH CHOLESTEROL ( Reported) Review of Systems Review of Systems: 14 point system review was obtained was noncontributory, other than as above. 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 BROTHER (hypertension and diabetes). FATHER ( at 44 from cancer). MOTHER Relation not specified for: FH: diabetes mellitus Psychosocial History Where Do You Live? Home Who Do You Live With? spouse Services at Home: None Primary Language: Spanish Smoking Status: Former Smoker ETOH Use: denies use Illicit Drug Use: denies illicit drug use Functional Ability ADLs Independent: dressing, eating, toileting, bathing. Ambulation: independent IADLs Independent: shopping, housework, finances, food prep, telephone, transportation , medication admin. Exam & Diagnostic Data Vital Signs and I&O Vital Signs Date Time Temp Pulse Resp B/P B/P Pulse O2 O2 Flow FiO2 Mean Ox Delivery Rate 11/21 1441 98.1 64 20 122/78 94 Room Air 11/21 1235 Room Air Room Air 11/21 0956 52 110/76 11/21 0653 97.6 51 18 128/76 94 Room Air 11/20 2232 98.2 51 18 112/78 97 11/20 2121 20 116/80 96 Room Air 11/20 1909 82 20 114/75 96 Room Air 11/20 1820 62 20 110/74 96 Room Air 11/20 1720 70 20 115/76 96 Room Air 11/20 1637 90 20 126/83 96 Room Air Intake & Output 11/21 1600 11/21 0811/21 0000 11/20 1600 11/20 0000 Intake Total 1020 110 200 0 Output Total Balance 1020 110 200 0 Intake, IV 620 10 Intake, Oral 400 100 200 0 Patient 224 lb 226 lb 228 lb Weight Weight Bed scale Reported by Patient Measurement Method Physical Exam: Well-developed, well-nourished middle-aged male in no acute distress. Vital signs: See above. HEENT: Normocephalic, atraumatic, EOMI, slightly dry mucous membranes. Neck: No JVD, no bruits. Lungs: Clear to auscultation bilaterally. Heart: S1, S2 with no murmur, gallop, or rub appreciated. PMI fifth ICS MCL. Abdomen: Soft, nontender, positive bowel sounds. Extremities: No edema. Labs/Abel Results: Laboratory Tests 11/21 11/21 11/21 0946 0617 0300 Chemistry Troponin I (<0.11 ng/ml) 0.29 *H 0.34 *H Urines Urine Color (YEL,AMB,STR) YEL Urine Clarity (CLEAR) CLEAR Urine pH (5.0 - 8.0) 6.0 Ur Specific [place] (1.001 - 1.035) 1.015 Urine Protein (NEG,<30 MG/DL) NEG Urine Ketones (NEG) NEG Urine Nitrite (NEG) NEG Urine Bilirubin (NEG) NEG Urine Urobilinogen (0.1 - 1.0 EU/dl) 0.2 Ur Leukocyte Esterase (NEG) NEG Ur Microscopic EXAM NOT REQUIRED Urine Hemoglobin (NEG) NEG Urine Glucose (N MG/DL) NEG 11/21 11/20 11/20 0300 2100 1825 Chemistry Sodium (137 - 145 mmol/L) 140 Potassium (3.5 - 5.1 mmol/L) 3.9 Chloride (98 - 107 mmol/L) 103 Carbon Dioxide (22 - 30 mmol/L) 26 Anion Gap (5 - 16) 10 BUN (9 - 20 mg/dL) 15 Creatinine (0.7 - 1.2 mg/dL) 1.1 Estimated GFR (>60 ml/min) > 60 BUN/Creatinine Ratio (7 - 25 %) 13.6 Troponin I (<0.11 ng/ml) 0.30 *H Akb-Y-Ghwfudtqmiu Pept (<125 pg/mL) 64.7 Hematology CBC w Diff NO MAN DIFF REQ WBC (4.8 - 10.8 /CUMM) 6.2 RBC (4.70 - 6.10 /CUMM) 4.78 Hgb (14.0 - 18.0 G/DL) 14.7 Hct (42 - 52 %) 43.8 MCV (80.0 - 94.0 FL) 91.6 MCH (27.0 - 31.0 PG) 30.8 MCHC (33.0 - 37.0 G/DL) 33.7 RDW (11.5 - 14.5 %) 13.2 Plt Count (130 - 400 /CUMM) 170 MPV (7.4 - 10.4 FL) 10.4 Gran % (42.2 - 75.2 %) 58.0 Lymphocytes % (20.5 - 51.1 %) 27.8 Monocytes % (1.7 - 9.3 %) 11.6 H Eosinophils % (0 - 5 %) 2.2 Basophils % (0.0 - 2.0 %) 0.4 Absolute Granulocytes (1.4 - 6.5 /CUMM) 3.6 Absolute Lymphocytes (1.2 - 3.4 /CUMM) 1.7 Absolute Monocytes (0.10 - 0.60 /CUMM) 0.7 H Absolute Eosinophils (0.0 - 0.7 /CUMM) 0.1 Absolute Basophils (0.0 - 0.2 /CUMM) 0 ESR Westergren (0 - 10 MM) 13 H Toxicology Urine Opiates Screen (>2000 NG/ML) < 100 Methadone Screen (>300 NG/ML) < 40 Barbiturate Screen (>200 NG/ML) < 60 Ur Phencyclidine Scrn (>25 NG/ML) < 6.00 Amphetamines Screen (>1000 NG/ML) < 100 U Benzodiazepines Scrn (>200 NG/ML) < 85 Urine Cocaine Screen (>300 NG/ML) < 50 Urine Cannabis Screen (>50 NG/ML) < 5.00 05 05 1543 1533 Chemistry Sodium (137 - 145 mmol/L) 140 Potassium (3.5 - 5.1 mmol/L) 4.2 Chloride (98 - 107 mmol/L) 102 Carbon Dioxide (22 - 30 mmol/L) 29 Anion Gap (5 - 16) 9 BUN (9 - 20 mg/dL) 15 Creatinine (0.7 - 1.2 mg/dL) 1.2 Estimated GFR (>60 ml/min) > 60 BUN/Creatinine Ratio (7 - 25 %) 12.5 Glucose (65 - 99 mg/dL) 90 Hemoglobin A1c (4.2 - 5.8 %) 5.3 Calcium (8.4 - 10.2 mg/dL) 9.5 Phosphorus (2.5 - 4.5 mg/dL) 3.5 Magnesium (1.6 - 2.3 mg/dL) 1.9 Total Bilirubin (0.2 - 1.3 mg/dL) 0.7 AST (17 - 59 U/L) 24 ALT (21 - 72 U/L) 40 Alkaline Phosphatase (< 127 U/L) 77 Creatine Kinase (55 - 170 U/L) 67 Troponin I (<0.11 ng/ml) 0.33 *H C-Reactive Prot, Quant (<1.0 mg/dL) 0.8 Aln-O-Mvvejlutajg Pept (<125 pg/mL) 103 Total Protein (6.3 - 8.2 g/dL) 7.2 Albumin (3.5 - 5.0 g/dL) 4.3 Globulin (1.9 - 4.2 gm/dL) 2.9 Albumin/Globulin Ratio (1.1 - 2.2 %) 1.5 TSH (0.270 - 4.200 uIU/mL) 1.840 Free T4 (0.64 - 1.79 ng/dL) 1.19 Coagulation PT (9.4 - 12.5 SEC) 11.3 INR (0.90 - 1.17) 1.04 APTT (25 - 37 SEC) 29 D-Dimer High Sensitivty (0 - 243 ng/ml) < 200 Cancelled Hematology CBC w Diff NO MAN DIFF REQ WBC (4.8 - 10.8 /CUMM) 6.0 RBC (4.70 - 6.10 /CUMM) 4.99 Hgb (14.0 - 18.0 G/DL) 15.5 Hct (42 - 52 %) 45.5 MCV (80.0 - 94.0 FL) 91.2 MCH (27.0 - 31.0 PG) 31.1 H MCHC (33.0 - 37.0 G/DL) 34.2 RDW (11.5 - 14.5 %) 12.9 Plt Count (130 - 400 /CUMM) 188 MPV (7.4 - 10.4 FL) 9.7 Gran % (42.2 - 75.2 %) 68.2 Lymphocytes % (20.5 - 51.1 %) 20.1 L Monocytes % (1.7 - 9.3 %) 9.6 H Eosinophils % (0 - 5 %) 1.9 Basophils % (0.0 - 2.0 %) 0.2 Absolute Granulocytes (1.4 - 6.5 /CUMM) 4.1 Absolute Lymphocytes (1.2 - 3.4 /CUMM) 1.2 Absolute Monocytes (0.10 - 0.60 /CUMM) 0.6 Absolute Eosinophils (0.0 - 0.7 /CUMM) 0.1 Absolute Basophils (0.0 - 0.2 /CUMM) 0 Toxicology Serum Alcohol (<10 MG/DL) < 10.0 Diagnostic Data EKG Results 11/21/2017 sinus bradycardia at 48 bpm and otherwise unremarkable. Slightly slower rate when compared to previous tracing from 11/20/2017. CXR Results 11/20/2017: No acute cardiopulmonary process. Other Results Head CT 11/20/2017: No acute intracranial process. Assessment/Plan Assessment/Plan [id number] w/ hx of fmr tobacco use, HTN, EZE on CPAP, R renal cell ca s/p nephrectomy, ch hep C s/p interferon Rx, recurrent falls s/p severe cervical spine stenosis s/p C spine fusion, & recurrent myopericarditis (October 2014; March 2016; May 2016; August 2016; September 2016; February 2017; April 2017; July 2017) on a suspected autoimmune who presented to the ED via ambulance yesterday afternoon following an unwitnessed syncopal episode, after earlier chest discomfort that was similar to an episode he experienced last week that prompted an admission to [facility]. The etiology for Mr. Ramey recent episodes are unclear, but remain worrisome. The fact that he was having some prodromal chest discomfort raises the possibility of a vasovagal etiology. As such, he might be a reasonable candidate for tilt table testing and this will be discussed with electrophysiology (Janes Davidson M.D.). Recommendations: * Continue on telemetry. * Obtain records from recent [facility] admission, including his echocardiogram. * Obtain records from most recent [facility] admission. * Consider cardiac MRI, if not already performed. * EP evaluation for recurrent syncope. * DVT prophylaxis. Consult Acknowledgment - Thank you for your consult request.
[2017-11-21 22:52] VITALS: BP 108/76
[2017-11-22 06:05] VITALS: BP 98/72
--- NOTE | 2017-11-22 07:07 | PN- Housestaff ---
Hodan HIRSCH,Paco 11/22/17 0706: Subjective Follow-up For: chest pain and syncope Tele-Events Since Last Visit: sinus rhythm, no events Subjective: complaining of right sided neck pain radiating down the right shoulder into arm no complaints of chest pain no overnight events Review of Systems Constitutional: Reports: see HPI. Objective Last 24 Hrs of Vital Signs/I&O Vital Signs Date Time Temp Pulse Resp B/P B/P Pulse O2 O2 Flow FiO2 Mean Ox Delivery Rate 11/22 0805 74 124/70 11/22 0758 74 124/70 11/22 0605 98.1 69 18 98/72 92 Room Air 11/21 2252 98.4 74 18 108/76 96 11/21 1441 98.1 64 20 122/78 94 Room Air 11/21 1235 Room Air Room Air 11/21 0956 52 110/76 Intake & Output 11/22 1600 11/22 0800 11/22 0000 Intake Total 600 Output Total Balance 600 Intake, Tube 600 Feeding Patient 102.767 kg Weight Physical Exam General Appearance: Alert, Oriented X3, Cooperative, No Acute Distress Neck: Supple, No JVD Cardiovascular: Regular Rate, Normal S1, Normal S2, No Murmurs Lungs: Clear to Auscultation, Normal Air Movement Abdomen: Normal Bowel Sounds, Soft, No Tenderness, No Masses Neurological: Normal Speech, Strength at 5/5 X4 Ext, Cranial Nerves 3-12 NL Extremities: No Clubbing, No Cyanosis, No Edema, Normal Pulses Current Medications: Current Medications Sig/Elian Start time Last Medication Dose Route Stop Time Status Admin Acetaminophen 650 MG Q6P PRN 11/20 2029 AC PO Amlodipine Besylate 5 MG DAILY 11/21 899 AC 11/22 PO 0805 Aspirin 81 MG DAILY 11/21 09 AC 11/22 PO 0805 Atorvastatin Calcium 80 MG 1700 11/20 2030 AC 11/21 PO 1737 Heparin Sodium 5,000 UNIT Q8 11/21 599 AC 11/22 (Porcine) SC 0642 Ibuprofen 600 MG Q8 11/21 06 DC 11/21 PO 0554 Melatonin 5 MG AT BEDTIME 11/21 2100 AC 11/21 PO 2300 Morphine Sulfate 4 MG .STK-MED ONE 11/21 1421 DC IM 11/21 1422 Morphine Sulfate 4 MG .STK-MED ONE 11/21 1032 DC IM 11/21 1033 Morphine Sulfate 2 MG Q4P PRN 11/20 2030 AC 11/22 IV 0248 Nitroglycerin 0.4 MG Q24 PRN 11/21 0900 11/21 TOP 1745 Omeprazole 40 MG DAILY AC 11/21 0700 AC 11/22 PO 0644 Paroxetine HCl 30 MG DAILY 11/21 0900 AC 11/22 PO 0805 Patient Medication 1 ED ONE ONE 11/21 1200 DC Teaching ED 11/21 1201 Sodium Chloride 1,000 ML ONCE ONE 11/20 2345 DC 11/21 IV 11/21 1304 0024 Last 24 Hrs of Lab/Abel Results Last 24 Hrs of Labs/Mics: Laboratory Tests 11/21/17 0946: Troponin I 0.29 *H Assessment/Plan Assessment: 47 year old male with past medical history of recurrent myopericarditis and chest pain with several negative cardiac catheterization most recently 07/2017, EZE on CPAP, HTN, HCV s/p interferon, multiple hospitalizations for syncope found to have severe cervical stenosis s/p cervical spine fusion hospitalized last week at [facility] for similar symptoms presented with chest pain follow by unwitnessed syncopal episode. Chest pain with chronically elevated troponin: Very atypical chest pain complaints, duration, onset, aggravating/relieving factors Discontinue NSAIDs, continue morphine for analgesia Consider adding gabapentin for what appears to be cervical radiculopathy pain Serial EKG and troponins Troponins 0.31 -> 0.33 -> 0.30 -> 0.34 No ischemic EKG changes Flat troponin curve, never had a normal troponin since initial stay in [address] Lopez Reportedly negative cardiac catheterization x 3 [facility] most recent 07/2017 Reviewed [facility] records Continue aspirin and statin Unremarkable echocardiogram Outpatient follow up with Dr. Davidson [facility] acute [facility] pathology Orthostatics vitals were negative No events on telemetry monitoring Admitted at [facility], same complaints 1 week ago Consider neurology consultation and carotid dopplers [facility] records in the chart, negative carotid/vertebral dopplers Consider outpatient Holter monitioring with Dr. Stovall EZE: Continue CPAP HTN: Continue metoprolol, nitroglycerin, norvasc RCC s/p R nephrectomy: Renal function normal, creatinine 1.1 HCV s/p interferon treatment: Liver function normal Heart healthy diet DVT ppx-lovenox Full code Problem List: 1. Troponin level elevated 2. Syncope 3. Chest pain Pain Ratin Pain Location: right neck/shoulder Pain Goal: Pain 4 or less Pain Plan: morphine prn Tomorrow's Labs & Rationales: none Jah Lay MD 11/22/17 1123: Attending MD Review Statement Attending Statement Attending MD Statement: examined this patient, discuss w/resident/PA/SOCIAL MEDIA CAMPAIGN MANAGER, agreed w/resident/PA/SOCIAL MEDIA CAMPAIGN MANAGER, reviewed EMR data (avail) Attending Assessment/Plan: 47M PMH recurrent myopericarditis, Hep C s/p interferon, HTN, RCC s/p right nephrectomy, EZE on CPAP, negative cardiac cath in 2011, 2014, Jaunary 2018, presents with right sided chest and neck pain with positive troponin 0.34 and normal EKG. Patient has a long history of elevated troponin but normal coronaries on cath x3, and has never had a cardiac MRI or biopsy. 1. Myopericarditis Plan - Continue on telemetry - Obtain records for previous cardiac workup - Continue home medications - Cardiology consult - DVT PPx
[2017-11-22 07:58] VITALS: BP 124/70
[2017-11-22 08:05] VITALS: BP 124/70
--- NOTE | 2017-11-22 11:32 | Patient Discharge Instructions ---
Discharge Instructions General Discharge Information You were seen/treated for: Chest pain Syncope Positive troponins Special Instructions: Please follow up with Dr. Stovall and Dr. Davidson for possible Holter monitoring, cardiac MRI, and EP studies. Please follow up with your primary care physician. Acute Coronary Syndrome Inclusion Criteria At DC or during hospital stay patient has or had the following: ACS DIAGNOSIS No Discharge Core Measures Meds if any: Prescribed or Continued at Discharge Meds if any: NOT Prescribed or Continued at Discharge Congestive Heart Failure Inclusion Criteria At DC or during hospital stay patient has or had the following: CHF DIAGNOSIS No Discharge Core Measures Meds if any: Prescribed or Continued at Discharge Meds if any: NOT Prescribed or Continued at Discharge Cerebrovascular accident Inclusion Criteria At DC or during hospital stay patient has or had the following: CVA/TIA Diagnosis No Discharge Core Measures Meds if any: Prescribed or Continued at Discharge Meds if any: NOT Prescribed or Continued at Discharge Venous thromboembolism Inclusion Criteria VTE Diagnosis No VTE Type NONE VTE Confirmed by (Test) NONE Discharge Core Measures - Per Current guidelines, there needs to be overlap - treatment for the first 5 days of Warfarin therapy. - If discharged on Warfarin prior to 5 days of - overlap therapy, the patient will need to be - assessed for post discharge needs including - *Post discharge parental anticoagulation - *Warfarin and/or parental anticoagulation education - *Follow up date to check INR post discharge At least 5 days overlap therapy as Inpatient No Meds if any: Prescribed or Continued at Discharge Note: Overlap Therapy is Warfarin and Anticoagulant Meds if any: NOT Prescribed or Continued at Discharge
--- NOTE | 2017-11-22 14:09 | Discharge Summary ---
Visit Information Visit Dates Admission Date: 11/20/17 Discharge Date: 11/22/17 Hospital Course Course Attending Physician: Jah Lay MD [facility]: 47 year old male with a history of former long-standing tobacco use, hypertension, obstructive sleep apnea on CPAP, cervical stenosis with weakness s /p cervical fusion, right renal cell carcinoma s/p nephrectomy, chronic hepatitis C s/p therapy with interferon, and recurrent myopericarditis (October 2014; March 2016; May 2016; August 2016; September 2016; February 2017; April 2017; July 2017 suspected autoimmune presented to after experiencing chest pain and an unwitnessed syncopal episode. He has experience similiar symptoms before including last week at [facility] during which he underwent evaluation with results notable for an unremarkable echocardiogram and negative carotid and verterbral doppler ultrasound. He has had 3 negative cardiac catheterizations (2011, 2014, and 2017). He was recently hospitalized at [facility] (10/22-10/28/1903/10/2015), followed by [facility] hospitalization (10/27-10/28/2014) for possible NSTEMI with troponin elevation that prompted transfer for ultimately a negative cardiac catheterization. His troponins were positive but no significant changes with serial evaluation (~0.30-0.35) and ESR was mildly elevated at 13. The patient denied any chest pain during his stay and had negative orthostatic vital signs. CT Head was negative. Records from his prior hospitalizations were reviewed and cardiology was consulted for troponin elevation and syncope. After evaluation, the patient was instructed to follow up with cardiology, Dr. Stovall and Dr. Daivdson, to pursue further workup of myopericarditis, including cardiac MRI and EP lab evaluation as an outpatient for recurrent syncope and persistently elevated troponins. Allergies: Coded Allergies: Penicillins (ITCH 10/03/17) poison joelle extract (LIPS SWELL, HIVES, BREATHING IS NOT AFFECTED PER PT ) poison oak extract (LIPS SWELL, HIVES, BREATHING NOT AFFECTED PER PT 10/03/17) poison sumac extract (LIPS SWELL, HIVES, BREATHING NOT AFFECTED PER PT 10/03/17) Disposition Summary Disposition Principal Diagnosis: Myopericarditis Troponin elevation Syncope Additional Diagnosis: Tobacco use Hypertension Obstructive sleep apnea on CPAP Cervical stenosis Renal cell carcinoma s/p nephrectomy Chronic hepatitis C s/p therapy with interferon Discharge Disposition: home or self care Discharge Instructions General Discharge Information Code Status: Full Code Patient's Diet: Heart healthy Patient's Activity: As tolerated Follow-Up Instructions/Appts: Follow up with your primary care physician, Dr. Stovall, and Dr. Davidson ( cardiology). Medications at Discharge Discharge Medications: Continue taking these medications: Paroxetine HCl (Paroxetine HCl) 30 MG TABLET 1 Tablet ORAL Every Morning Qty = 30 Comments: Last Taken: 11/22/17 Time: 8AM Pantoprazole Sodium (Pantoprazole Sodium) 40 MG TABLET.DR 1 Tablet ORAL DAILY Qty = 30 Comments: NOT GIVEN IN HOSPITAL Amlodipine Besylate (Amlodipine Besylate) 5 MG TABLET 1 Tablet ORAL DAILY Qty = 30 Comments: Last Taken: 11/22/17 Time: 8AM Diazepam (Diazepam) 5 MG TABLET 1 Tablet ORAL Q8H as needed for MUSCLE SPASMS Qty = 30 Comments: NOT GIVEN IN HOSPITAL Hydrochlorothiazide (Hydrochlorothiazide) 25 MG TABLET 1 Tablet ORAL DAILY Qty = 30 Comments: NOT GIVEN IN HOSPITAL Simvastatin (Simvastatin*) 10 MG TABLET 1 Tablet ORAL Every night Qty = 30 Comments: Last Taken: 11/21/17 Time: 5PM PT GIVEN ATORVASTATIN Aspirin (Sarah Chewable Aspirin) 81 MG TAB.CHEW 81 Milligram ORAL DAILY Qty = 30 Comments: Last Taken: 11/22/17 Time: 8AM Ibuprofen (Ibuprofen) 600 MG TABLET 1 Tablet ORAL THREE TIMES DAILY Days = 10 Instructions: with food Comments: Last Taken: 11/21/17 Time: 6AM Nitroglycerin (Nitroglycerin Patch) 0.4 MG/HOUR PATCH.TD24 1 PATCH TRANSDERM DAILY as needed for CHEST PAIN Qty = 30 Comments: Last Taken: 11/21/17 Time: 6PM Copies To: Wilman HIRSCH,Dario; Stuart HIRSCH,Janes Bueno Rai, MD,[facility] Attending MD Review Statement Documenting Attending: Jah Lay MD
[2018-03-14] MEDS ORDERED: NAPROXEN250 M1 PO ×2 (14:40→14:45)
[2018-03-14] MEDS ORDERED: COLCHICINE0.6 M2 PO ×2 (14:40→14:46)
[2018-03-14] MEDS ORDERED: NAPROXEN500 M2 PO ×2 (14:40→14:45)
== END 2017-11-22 13:55 | DRG 316 ==
LOC: ERH 15:17 → 1NO 19:52 → ERHI 19:52 → ENRESERV 20:49 → ENTRNSPT 21:38 → EDTRNSPT 21:47 → EDTRNSPTSTS 21:47 → 1NO 21:53 → CMPTRNSPT 22:01 → 1NO 23:03 → ENPENDDIS 11-22 11:59 → 1NO 11-22 13:55
PROVIDERS: Internal Medicine Hematology & Oncology; Physician Assistant Medical
DX: I31.9 Disease of pericardium, unspecified (principal); M48.02 Spinal stenosis, cervical region; Z98.1 Arthrodesis status; Z88.0 Allergy status to penicillin; G47.33 Obstructive sleep apnea (adult) (pediatric); F32.9 Major depressive disorder, single episode, unspecified; Z85.528 Personal history of other malignant neoplasm of kidney; Z90.5 Acquired absence of kidney; B18.2 Chronic viral hepatitis C; R79.89 Other specified abnormal findings of blood chemistry; R55 Syncope and collapse; Z87.891 Personal history of nicotine dependence
CPT/HCPCS: 1NSP; 36592; 71045; 80307; 81003; 82436; 87086; 93005; 93010; 96374; 96375; G0480; J1644; J3490

== ENCOUNTER 2018-02-11 18:32 | Inpatient (IN) | payer OTHER ==
[~2018-02-11] VITALS: Ht 188 cm; Wt 102.9 kg
[~2018-02-11 18:32] MED LIST changes: +BAYER CHEWABLE81 MG PO; +HYDROCHLOROTHIA25 M1 PO; +NITROGLYCERIN1 EACH TD; +SIMVASTATIN10 M1 PO
--- NOTE | 2018-02-11 19:04 | CT SCAN REPORT ---
EXAMINATION: CT HEAD WITHOUT CONTRAST CLINICAL INFORMATION: Right-sided weakness. Confusion. COMPARISON: CT head 11/20/2017 TECHNIQUE: Contiguous axial imaging was performed from the skull base to vertex without intravenous administration of contrast. DLP: 623.65 mGy-cm FINDINGS: There is no evidence of acute intracranial hemorrhage or territorial infarction. No abnormal mass effect or midline shift is seen. Gloria to white matter differentiation is well preserved. No extra-axial fluid collections are identified. The ventricles are normal in size. There is no abnormal attenuation within the brain parenchyma. The osseous structures and soft tissues are normal. The mastoid air cells and visualized portions of the paranasal sinuses are well aerated. IMPRESSION: No acute intracranial pathology. This critical result was discussed with Dr. Haas on 02/11/2018, 7:00 PM and it was ascertained that the content and urgency of the report was understood at the time of direct communication.
[2018-02-11 19:20] LABS: ABSOLUTE BASOPHIL COUNT 0 /CUMM (0.0-0.2); ABSOLUTE EOSINOPHIL COUNT 0.1 /CUMM (0.0-0.7); ABSOLUTE GRANULOCYTE CT 5.4 /CUMM (1.4-6.5); ABSOLUTE LYMPH COUNT 1.5 /CUMM (1.2-3.4); ABSOLUTE MONOCYTE COUNT 0.7 /CUMM (0.10-0.60); BASOPHIL % 0.3 % (0.0-2.0); EOSINOPHIL % 1.1 % (0-5); GRANULOCYTE % 70.4 % (42.2-75.2); HEMATOCRIT 45.8 % (42-52); MEAN CORPUSCULAR HGB 30.5 PG (27.0-31.0); MEAN CORPUSCULAR HGB CONC 33.5 G/DL (33.0-37.0); MEAN CORPUSCULAR VOLUME 91.1 FL (80.0-94.0); MEAN PLATELET VOLUME 9.9 FL (7.4-10.4); PLATELET COUNT 200 /CUMM (130-400); RBC DISTRIBUTION WIDTH 12.4 % (11.5-14.5); RED BLOOD CELL CT 5.03 /CUMM (4.70-6.10); WHITE BLOOD CELL COUNT 7.7 /CUMM (4.8-10.8)
--- NOTE | 2018-02-11 19:32 | ED GENERAL ADULT ---
History of Present Illness General Chief Complaint: General Adult Stated Complaint: RT FOOT PAIN RADIATING UPWARDS Source: patient, family Exam Limitations: no limitations Vital Signs & Intake/Output Vital Signs & Intake/Output Vital Signs Date Time Temp Pulse Resp B/P B/P Pulse O2 O2 Flow FiO2 Mean Ox Delivery Rate 02/13 0800 93 Room Air Room Air 02/13 0800 97.1 48 18 120/80 93 Room Air Room Air 02/13 0400 94 Room Air 02/13 0000 93 Room Air 02/13 0000 97.0 60 18 118/72 93 Room Air 02/12 2000 98 Room Air 02/12 2000 98.9 56 18 122/80 98 Room Air 02/12 1600 97 Room Air Room Air 02/12 1600 97.1 60 18 124/78 97 Room Air Room Air 02/12 1200 97 Room Air Room Air ED Intake and Output 02/13 0000 02/12 1200 Intake Total 1200 Output Total 1350 Balance -150 Intake, Oral 1200 Output, Urine 1350 Allergies Coded Allergies: Penicillins (ITCH 02/11/18) poison joelle extract (LIPS SWELL, HIVES, BREATHING IS NOT AFFECTED PER PT ) poison oak extract (LIPS SWELL, HIVES, BREATHING NOT AFFECTED PER PT 02/11/18) poison sumac extract (LIPS SWELL, HIVES, BREATHING NOT AFFECTED PER PT 02/11/18) Reconcile Medications Pantoprazole Sodium 40 MG TABLET.DR 1 TAB PO DAILY [facility] (Reported) Paroxetine HCl 30 MG TABLET 1 TAB PO [facility] (Reported) Triage Note: PT TO ED WITH FAMILY FOR SUDDEN ONSET OF R GREAT TOE PAIN THAT THEN CAUSED PT TO HAVE R SIDED WARM/FLUSHED FEELING AND WEAKNESS AND DIFFICULTY WITH AMBULATION. PER CASEY OTTO, PT HAS R SIDED WEAKNESS IN TRIAGE. STROKE ALERT CALLED AND PT TAKEN DIRECTLY TO CAT SCAN FROM TRIAGE BY THIS RN. Triage Nurses Notes Reviewed? yes HPI: 48-year-old male brought by family. He was normal throughout the day, started having weakness to the right side of the body at about 5:50 PM. This was a witnessed event. No injury, fall, headache reported. Patient has a history of non-STEMI. The patient is currently not on any medications or blood thinners. No history of A. fib. Past History Travel History Traveled to [place] past 21 day No Medical History Any Pertinent Medical History? 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 BROTHER (hypertension and diabetes). FATHER ( at 44 from cancer). MOTHER Relation not specified for: FH: diabetes mellitus Hx Contributory? No Review of Systems Review of Systems Constitutional: Denies: chills, diaphoresis, fever. EENTM: Denies: blurred vision, double vision, visual changes. Respiratory: Denies: cough, hemoptysis, orthopnea. Cardiovascular: Denies: chest pain, edema, orthopena. GI: Denies: abdominal pain, bloating, constipation. Musculoskeletal: Denies: back pain, gout, joint pain. Skin: Denies: cysts, change in skin color, change in hair/nails. Neurological/Psychological: Reports: numbness, unable to move lower ext, unable to move upper ext, weakness. Hematologic/Endocrine: Denies: bruising, bleeding. Physical Exam Physical Exam General Appearance: well developed/nourished Head: atraumatic, normal appearance Eyes: Bilateral: normal appearance, PERRL, EOMI. Ears, Nose, Throat: normal pharynx, normal ENT inspection Neck: normal inspection, supple, full range of motion Respiratory: normal breath sounds, chest non-tender, no respiratory distress Cardiovascular: regular rate/rhythm Gastrointestinal: normal bowel sounds, soft, non-tender Rectal: normal exam, heme negative stool Back: normal inspection, normal range of motion Extremities: normal inspection, normal capillary refill Neurologic/Psych: awake, alert, oriented x 3, motor/sensory deficits Skin: intact, normal color, warm/dry, cyanosis Comments: The patient presents with weakness to the right side with changes in the speech. Onset 5:30 PM. The patient has NIH stroke scale of 7. 4 out of 5 strength in the right upper extremity 3 out of 5 in the right lower extremity. Abnormal speech. The patient also reports decreased sensation on the right side. Core Measures ACS in differential dx? Yes CVA/TIA Diagnosis: Yes Sepsis Present: No Sepsis Focused Exam Completed? No Progress Differential Diagnoses I considered the following diagnoses in my evaluation of the patient: Plan of Care: Orders Procedure Date/time Status CBC WITHOUT DIFFERENTIAL 02/13 0600 Complete Regular Diet 02/12 L Active TROPONIN LEVEL 02/12 1900 Complete EKG 02/12 1900 Active TROPONIN LEVEL 02/12 1300 Complete EKG 02/12 1300 Active Wound Care/Dressing 02/12 0841 Complete Turn and Reposition 02/12 0841 Active Drains/Tubes 02/12 0841 Complete Evaluate Swallowing 02/12 UNK Complete Current Medications Sig/Elian Start time Last Medication Dose Stop Time Status Admin Aspirin 81 MG DAILY 02/14 2000 AC (Aspirin) Acetaminophen 650 MG Q6P PRN 02/12 0015 AC (Tylenol) Acetaminophen 1,000 MG Q8 PRN 02/12 0015 AC (Ofirmev) Atorvastatin Calcium 80 MG 1700 02/11 2359 AC 02/12 (Lipitor) 1716 Laboratory Tests 02/13/18 0430: CBC w Diff NO MAN DIFF REQ, RBC 4.78, MCV 91.2, MCH 31.0, MCHC 33.9, RDW 12.7, MPV 10.5 H, Gran % 67.3, Lymphocytes % 22.5, Monocytes % 8.4, Eosinophils % 1.6 , Basophils % 0.2, Absolute Granulocytes 4.8, Absolute Lymphocytes 1.6, Absolute Monocytes 0.6, Absolute Eosinophils 0.1, Absolute Basophils 0 02/12/18 1920: Troponin I 0.34 *H 02/12/18 1300: Troponin I 0.34 *H Initial ED EKG: normal axis, normal intervals, no ST T wave changes Comments: 48-year-old male presents with focal weakness to the right side. Onset was 550. Started with speech changes and progressed to focal weakness on the right side. The patient is right-handed. The patient has history of chest pain, non-STEMI but is not anticoagulated. The patient does not report any pain at this time. No fever reported no chills reported. 193Dr. Mtz-discussed the case with the neurologist. Agree for the TPA. Recommend CT angiogram after that. Long discussion with patient, , family-They agreed to TPA. Verbal consent obtained. Pros and cons discussed in great detail. Guaiac-negative patient is getting TPA 2056 the patient is doing about the same. Pending CTA results. will transfer the patient if indicated by the CTA. I spoke with the hospitalist and the MOD to admit the patient if there is also negative. The patient will be admitted to ICU. Departure Departure Disposition: STILL A PATIENT Condition: Stable Clinical Impression Primary Impression: CVA (cerebral vascular accident) Referrals: Chris HIRSCH,Gisel (PCP/Family) Departure Forms: Customer Survey General Discharge Information Critical Care Note Critical Care Note Critical Care Time: 30-74 min
[2018-02-11 19:35] LABS: PT 10.9 SEC (9.4-12.5); PTT 27 SEC (25-37)
--- NOTE | 2018-02-11 21:04 | CT SCAN REPORT ---
EXAMINATION: CT ANGIOGRAM NECK WITH CONTRAST CT ANGIOGRAM BRAIN WITH CONTRAST CLINICAL INFORMATION: Right-sided weakness. Speech deficit. COMPARISON: Head CT from 11/20/2017 and 02/11/2018. Chest CT from 10/03/2017 TECHNIQUE: Test bolus sequences followed by intravenous administration 150 mL of Optiray 320. Helical imaging was performed in the axial plane from the thoracic inlet to the skull vertex. Delayed postcontrast imaging of the head was also performed. The data was processed at the cytogenetics technologist workstation for generation of MIP sequences. Angled MIPs and volume rendered reformatted images were also generated at an offline 3D workstation. Stenoses are assessed in accordance with NASCET criteria unless otherwise indicated. DLP: 392, 1365 mGy-cm FINDINGS: Nonvascular: There are dependent changes at the lung apices. There is a stable precarinal lymph node measuring 8 mm in short axis. No mediastinal adenopathy is visualized. No discrete thyroid lesion. Thyroid tissue is noted to extend to the level of the hyoid. The imaged pharyngeal and laryngeal contours appear unremarkable. The visualized oral cavity is unremarkable. No cervical adenopathy. The parotid and submandibular glands appear symmetric in attenuation without sialadenitis. The orbits are unremarkable. No acute intracranial abnormality. No abnormal intracranial enhancement. The ventricles, sulci, and extra-axial CSF spaces appear normal in caliber and configuration. Attenuation within the brain parenchyma appears unremarkable. The imaged paranasal sinuses are notable for mild mucosal thickening and small retention cysts at the maxillary bases. The patient is edentulous. The nasal cavity is clear. The mastoid air cells and middle ear cavities are clear. There has been C5 corpectomy with anterior cervical discectomy and fusion at C4-C6. No acute osseous abnormality. Mild multilevel cervical spondylosis. Vascular: The aortic arch is normal in caliber. There is a common origin of the left common carotid and innominate artery. There is a normal origin of the right common carotid artery. There are normal origins of both vertebral arteries. The proximal subclavian arteries appear unremarkable. The common carotid arteries, carotid bulbs, and cervical internal carotid arteries are normally opacified and normal in caliber. The cervical vertebral arteries are normally opacified and normal in caliber. The distal internal carotid arteries, carotid termini, as well as the anterior and middle cerebral arteries and the anterior communicating artery appear unremarkable. The right CHERYLE A1 segment is diminutive, a normal variant. There is normal arborization of the anterior circulation. The intradural vertebral arteries, basilar artery, and vertebrobasilar branches appear unremarkable. There is no evidence of aneurysm, significant stenosis, occlusion, or vascular malformation. The major dural venous sinuses, deep and cortical veins opacify normally. IMPRESSION: Normal CTA of the head and neck. No acute intracranial abnormality. No abnormal intracranial enhancement.
--- NOTE | 2018-02-11 21:18 | History & Physical ---
Bruce HIRSCH,[facility] 02/11/182116: General Information and HPI MD Statement: I have seen and personally examined JAKOB GARLAND and documented this H&P. The patient is a 48 year old M who presented with a patient stated chief complaint of right sided weakness and speech difficulties. Source of Information: patient, family, ER History of Present Illness: 47-year-old gentleman with a past medical history significant for hypertension, former smoker, obstructive sleep apnea not on CPAP, right renal cell carcinoma status post nephrectomy, chronic hepatitis C treated with interferon, recurrent myopericarditis, NSTEMI, s/p LINQ monitoring specialist, cervical stenosis with weakness status post cervical fusion, presented with acute sudden onset of right -sided weakness and speech difficulties. Patient's daughter reports that earlier today around 5:30 PM while they were seated outside on the porch, the patient reported a sudden onset of right toe pain which progressed to right lower leg and right upper extremity weakness. He he also reported difficulty ambulating at that time, and his speech was noted to be dysarthric, with noticeable confusion. His daughter brought him to the ER within 45 minutes to 1 hr. There was no report of seizure-like activities. Patient did complain of neck pain accompanying his focal deficits, but no headache. When he was presented at the ED, the staff noted that he still had right-sided weakness and had an NIH score of 7 at triage. Patient met the TPA window timeline and was administered alteplase after non-contrast CT of the head was unremarkable for any acute intracranial bleeding. His CTA head and neck was unremarkable for any acute ischemic changes. Later when seen by the ICU staff after TPA administration, patient was alert oriented 3, was not confused, speech was clear, and no longer exhibited the right-sided focal neurological deficits. Allergies/Medications Allergies: Coded Allergies: Penicillins (ITCH 02/11/18) poison joelle extract (LIPS SWELL, HIVES, BREATHING IS NOT AFFECTED PER PT ) poison oak extract (LIPS SWELL, HIVES, BREATHING NOT AFFECTED PER PT 02/11/18) poison sumac extract (LIPS SWELL, HIVES, BREATHING NOT AFFECTED PER PT 02/11/18) Home Med list Pantoprazole Sodium 40 MG TABLET.DR 1 TAB PO DAILY [facility] (Reported) Paroxetine HCl 30 MG TABLET 1 TAB PO [facility] (Reported) Past History Travel History Traveled to [place] past 21 day No Medical History Neurological: NONE EENT: NONE Cardiovascular: hypertension, hyperlipidemia, CARDIAC CATH 2011, 2014 MYOCARDITIS Respiratory: obstructive sleep apnea, pulmonary nodules Gastrointestinal: NONE Hepatic: hepatitis C Renal: nephrectomy, R RENAL CA R KIDNEY REMOVAL Musculoskeletal: spinal stenosis (bilateral endoscopic knee surg) Psychiatric: depression Endocrine: NONE Blood Disorders: CHRONIC HEP C TREATED INTERFERON Cancer(s): R KIDNEY CA lung nodules 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 BROTHER (hypertension and diabetes). FATHER ( at 44 from cancer). MOTHER Relation not specified for: FH: diabetes mellitus Psychosocial History Who Do You Live With? spouse Services at Home: None Primary Language: Citizen Of [place] ETOH Use: denies use Illicit Drug Use: denies illicit drug use Functional Ability ADLs Independent: dressing, eating, toileting, bathing. Ambulation: independent IADLs Independent: shopping, housework, finances, food prep, telephone, transportation , medication admin. Review of Systems Review of Systems Constitutional: Reports: see HPI. Exam & Diagnostic Data Last 24 Hrs of Vital Signs/I&O Vital Signs Date Time Temp Pulse Resp B/P B/P Pulse O2 O2 Flow FiO2 Mean Ox Delivery Rate 02/11 2240 95 Room Air 02/11 2153 98.0 52 16 122/78 100 Nasal 2.0L Cannula 02/12 2120 98.1 53 18 124/82 100 Nasal 2.0L Cannula 02/11 2051 97.7 52 16 122/84 100 Nasal 2.0L Cannula 02/12 2020 56 14 128/80 97 Nasal 2.0L Cannula 02/11 1940 60 14 122/84 96 Room Air 02/11 1925 60 15 126/76 96 Nasal 2.0L Cannula 02/11 1913 97.5 64 18 136/88 96 Nasal 2.0L Cannula 02/11 1911 98 Nasal 2.0L Cannula 02/11 1859 67 18 130/77 98 Room Air 02/11 1838 97.1 67 15 135/88 99 Room Air Room Air Physical Exam General Appearance Alert, Oriented X3, Cooperative Skin No Significant Lesion Skin Temp/Moisture Exam: Warm/Dry Sepsis Skin Exam (color): Normal for Ethnicity HEENT Atraumatic, Mucous Membr. moist/pink Neck Supple, No JVD Cardiovascular Regular Rate, Normal S1, Normal S2 Lungs Clear to Auscultation, Normal Air Movement Abdomen Normal Bowel Sounds, Soft, No Tenderness Neurological Normal Gait, Normal Speech, Normal Tone, Sensation Intact, diminished gag reflex but present , remainder of cranial nerve exam grossly intact, hypereflexia of the patella reflex, other DTRs 2+. Babinski negative., 5 /5 strength of left U/L extremitites. 5/5 strength of upper right extremity but 4/5 strenth in tight lower extremity, no gait imabalance, no dysmetria or dysdiadokinesia. Last 24 Hrs of Labs/Abel: Laboratory Tests 02/11/184: Anion Gap 12, Estimated GFR 59 L, BUN/Creatinine Ratio 12.3, Glucose 105 H, Calcium 9.6, Total Bilirubin 0.5, AST 23, ALT 33, Alkaline Phosphatase 74, Troponin I 0.37 *H, Total Protein 7.0, Albumin 4.2, Globulin 2.8, Albumin/ Globulin Ratio 1.5, PT 10.9, INR 1.00, APTT 27, CBC w Diff NO MAN DIFF REQ, RBC 5.03, MCV 91.1, MCH 30.5, MCHC 33.5, RDW 12.4, MPV 9.9, Gran % 70.4, Lymphocytes % 19.3 L, Monocytes % 8.9, Eosinophils % 1.1, Basophils % 0.3, Absolute Granulocytes 5.4, Absolute Lymphocytes 1.5, Absolute Monocytes 0.7 H, Absolute Eosinophils 0.1, Absolute Basophils 0 Microbiology 02/11 224 UPPER RESP: Surveillance Culture - ORD 02/11 2245 GI: Surveillance Culture - ORD Diagnostic Data Other Results SERVICE DATE: 02/11/18 EXAM TYPE: CAT - CT HEAD ANGIOGRAM; CT NECK ANGIOGRAM EXAMINATION: CT ANGIOGRAM NECK WITH CONTRAST CT ANGIOGRAM BRAIN WITH CONTRAST CLINICAL INFORMATION: Right-sided weakness. Speech deficit. COMPARISON: Head CT from 11/20/2017 and 02/11/2018. Chest CT from 10/03/2017 TECHNIQUE: Test bolus sequences followed by intravenous administration 150 mL of Optiray 320. Helical imaging was performed in the axial plane from the thoracic inlet to the skull vertex. Delayed postcontrast imaging of the head was also performed. The data was processed at the manufacturing technologist workstation for generation of MIP sequences. Angled MIPs and volume rendered reformatted images were also generated at an offline 3D workstation. Stenoses are assessed in accordance with NASCET criteria unless otherwise indicated. DLP: 392, 1365 mGy-cm FINDINGS: Nonvascular: There are dependent changes at the lung apices. There is a stable precarinal lymph node measuring 8 mm in short axis. No mediastinal adenopathy is visualized. No discrete thyroid lesion. Thyroid tissue is noted to extend to the level of the hyoid. The imaged pharyngeal and laryngeal contours appear unremarkable. The visualized oral cavity is unremarkable. No cervical adenopathy. The parotid and submandibular glands appear symmetric in attenuation without sialadenitis. The orbits are unremarkable. No acute intracranial abnormality. No abnormal intracranial enhancement. The ventricles, sulci, and extra-axial CSF spaces appear normal in caliber and configuration. Attenuation within the brain parenchyma appears unremarkable. The imaged paranasal sinuses are notable for mild mucosal thickening and small retention cysts at the maxillary bases. The patient is edentulous. The nasal cavity is clear. The mastoid air cells and middle ear cavities are clear. There has been C5 corpectomy with anterior cervical discectomy and fusion at C4-C6. No acute osseous abnormality. Mild multilevel cervical spondylosis. Vascular: The aortic arch is normal in caliber. There is a common origin of the left common carotid and innominate artery. There is a normal origin of the right common carotid artery. There are normal origins of both vertebral arteries. The proximal subclavian arteries appear unremarkable. The common carotid arteries, carotid bulbs, and cervical internal carotid arteries are normally opacified and normal in caliber. The cervical vertebral arteries are normally opacified and normal in caliber. The distal internal carotid arteries, carotid termini, as well as the anterior and middle cerebral arteries and the anterior communicating artery appear unremarkable. The right CHERYLE A1 segment is diminutive, a normal variant. There is normal arborization of the anterior circulation. The intradural vertebral arteries, basilar artery, and vertebrobasilar branches appear unremarkable. There is no evidence of aneurysm, significant stenosis, occlusion, or vascular malformation. The major dural venous sinuses, deep and cortical veins opacify normally. IMPRESSION: Normal CTA of the head and neck. No acute intracranial abnormality. No abnormal intracranial enhancement. DICTATED BY: Clay MD,Ferny Assessment/Plan Assessment: 48-year-old gentleman with a past medical history of hypertension, hyperlipidemia, obstructive sleep apnea currently not on BiPAP, former smoker, history of non-STEMI, presented with acute sudden onset of right-sided focal deficits including lower and upper extremity weakness, dysarthria and confusion and NIH score of 8 while at triage. Presented within one hour after onset of symptoms, prompting administration of TPA after CT head ruled out intracranial bleed. CTA head and neck was unremarkable. Impression * Focal neurological deficits including right-sided weakness and speech changes, appeared resolved after TPA administration. * CVA vs TIA. CTA head was unnremarkable, however will unruly MRI to completely rule out CVA. Most likely left sided MCA stroke given the symptoms of right sided weakness and aphasia in a right handed person. Etiology; atherosclerosis thombus vs vascultis vs crytpogenic given patients age. * Status post TPA administration * Elevated troponins * History of chronic diseases; hypertension, obstructive sleep apnea, cervical stenosis, renal cell carcinoma, right Hepatitis C, recurrent mild pericarditis. Plan Admit to ICU for close monitoring status post TPA administration Keep NPO Neurochecks every hour, with stat CT head if significant changes Blood pressure checks every 15 minutes for the first 2 hours after TPA, followed by every hour for 24 hours Maintain blood pressure goal of less than 180/105 for the 24-hour period Can use prn hydralazine 10-20 mg IV to maintain goal of BP less than 180/105 ( refrain from labetalol due to low heart rates). If BP persistently high and above goal, consider antihypertensive drip such as nicardipine No arterial stick or venipuncture on noncompressible sites in the first 24 hours No antiplatelet therapy for [address] of head after 24 hours s/p tpa prior to initiating of an antiplatelet therapy f/u neuro reccs Elevate head of bed 30 degrees Continous cardiac monitoring Trend troponins and EKG 2 Cardio consult Echo tomorrow am Consider downloading LINQ monitor data to assess for arythmias passed bedside swallow albiet a very diminished gag reflex Atorvastatin 80mg qd Formal swallo eval in the am Avoid opiod analgesia in the context of its effect on neuro checks PT consult before disharge DVT prophylaxis: Alps only Course status; full As Ranked By This Provider Problem List: 1. CVA (cerebral vascular accident) 2. Troponin level elevated 3. Received intravenous tissue plasminogen activator (tPA) in emergency department Core Measures/Misc (04/07) Acute Coronary Syndrome ACS Diagnosis: No Congestive Heart Failure Congestive Heart Failure Diagnosis No Cerebrovascular Accident CVA/TIA Diagnosis: Yes NIH Stroke Scale: Total 0 tPA given? Yes Swallow Evaluation Pass No Antithrombotic d/t Pharm Contraindication VTE (View Protocol) VTE Risk Factors Acute Medical Illness No Mechanical VTE Prophylaxis d/t N/A MechProphylax Ordered No VTE Pharm Prophylaxis d/t Medical Contraindication Sepsis (View protocol) Sepsis Present: No If YES complete Sepsis Event Note If YES complete Sepsis Event Note Jah Lay MD 02/12/18 0012: Core Measures/Misc (04/07) Sepsis (View protocol) If YES complete Sepsis Event Note If YES complete Sepsis Event Note Attending MD Review Statement Attending Statement Attending MD Statement: examined this patient, discuss w/resident/PA/CORPORATE AUDITOR, agreed w/resident/PA/CORPORATE AUDITOR, reviewed EMR data (avail) Attending Assessment/Plan: 48M PMH HTN, EZE on CPAP, cervical stenosis with weakness s/p cervical fusion, right renal cell carcinoma s/p nephrectomy, chronic hepatitis C s/p therapy with interferon, and recurrent myopericarditis presenting with acute onset of slurred speech followed by dense right sided weakness consistent with acute CVA. NIHSS was found to be 7 with weakness and decreased sensation of the right upper and lower extremity, CT head negative, was given tPA. CTA head and neck negative for thrombus. Patient's speech seemed delayed but no dysarthria. He is coherent without difficulties in understanding. He has 4/5 weakness in the RLE and RUE, which he says is improved. Sensation is intact. No neglect. BP 122/ 85. Troponin is 0.37, creatinine 1.3, EKG NSR. Passed bedside swallow. 1. Acute left MCA ischemic stroke 2. Elevated troponin Plan - Admit to ICU - tPA protocol for vitals and neuro checks, monitoring for mental status changes - No blood draws or IV insertions - If any change in neurological status or mental status changes, obtain stat CT head - Neurology consult - Speech therapy consult - PT/OT - Serial EKG - Serial troponin if can be accessed without needlestick Paco Pettit MD 02/12/18 1422: General Information and HPI MD Statement: I have seen and personally examined JAKOB GARLAND and documented this H&P. The patient is a 48 year old M who presented with a patient stated chief complaint of right sided weakness. Source of Information: patient, family, ER Exam Limitations: no limitations Review of Systems Review of Systems Constitutional: Reports: see HPI. EENTM: Reports: no symptoms. Cardiovascular: Reports: no symptoms. Respiratory: Reports: no symptoms. GI: Reports: no symptoms. Genitourinary: Reports: no symptoms. Musculoskeletal: Reports: no symptoms. Skin: Reports: no symptoms. Neurological/Psychological: Reports: see HPI. Hematologic/Endocrine: Reports: no symptoms. Immunologic/Allergic: Reports: no symptoms. All Other Systems: Reviewed and Negative Core Measures/Misc (04/07) Acute Coronary Syndrome ACS Diagnosis: No Congestive Heart Failure Congestive Heart Failure Diagnosis No Cerebrovascular Accident CVA/TIA Diagnosis: Yes NIH Stroke Scale: Total 0 tPA given? Yes No Antithrombotic d/t Medical Contraindication VTE (View Protocol) VTE Risk Factors Acute Medical Illness No Mechanical VTE Prophylaxis d/t N/A MechProphylax Ordered No VTE Pharm Prophylaxis d/t Medical Contraindication Sepsis (View protocol) Sepsis Present: No If YES complete Sepsis Event Note If YES complete Sepsis Event Note
--- NOTE | 2018-02-12 00:15 | Admission Certification ---
Admission Certification Certification Statement - As attending physician, I certify that at the time of - admission, based on clinical presentation, severity of - symptoms, need for further diagnostic testing and - therapeutic interventions, and risk of adverse outcomes - without in-hospital treatment, in my clinical assessment, - this patient requires an acute hospital stay for a minimum - of two nights or longer. I have also considered psychsocial - factors such as support system, advanced age, financial - issues, cognitive issues, and failed out-patient treatments, - past re-admission history, safety of patient, and lack of - compliance as applicable. Specific rationale supporting this admission is: Acute stroke, tPA given
[2018-02-12 07:00] VITALS: BP 112/76
--- NOTE | 2018-02-12 07:22 | Cons- CRCU ---
Monique HIRSCH,[facility] 02/12/18 0720: General Information and HPI Consulting Request Date of Consult: 02/12/18 Requested By: Dr Jah Lay Reason for Consult: Stroke s/p tPA Source of Information: patient, old records Exam Limitations: no limitations History of Present Illness: 48-year-old gentleman with a past medical history significant for hypertension, former smoker, obstructive sleep apnea not on CPAP, right renal cell carcinoma status post nephrectomy, chronic hepatitis C treated with interferon, recurrent myopericarditis, NSTEMI, s/p LINQ telemetry monitor, cervical stenosis with weakness status post cervical fusion, presented with acute sudden onset of right -sided weakness and speech difficulties. Patient's daughter reported that yesterday around 5:30 PM they were seated outside on the porch, and the patient experienced sudden onset of right toe pain which progressed to right lower leg and right upper extremity weakness. He also started having difficulty ambulating at that time, and his speech was noted to be dysarthric, with noticeable confusion. His daughter brought him to the ER within 45 minutes to 1 hr. There was no report of seizure-like activities. Patient did complain of neck pain accompanying his focal deficits, but no headache. When he was presented at the ED, the staff noted that he still had right-sided weakness and had an NIH score of 7 at triage. Patient met the TPA window timeline and was administered alteplase after non-contrast CT of the head was unremarkable for any acute intracranial bleeding. His CTA head and neck was unremarkable for any acute ischemic changes. Later in the evening when evaluated by the ICU staff after TPA administration, patient was found to be alert oriented 3, was not confused, speech was clear, and no longer exhibited the right-sided focal neurological deficits. Allergies/Medications Allergies: Coded Allergies: Penicillins (ITCH 02/11/18) poison joelle extract (LIPS SWELL, HIVES, BREATHING IS NOT AFFECTED PER PT ) poison oak extract (LIPS SWELL, HIVES, BREATHING NOT AFFECTED PER PT 02/11/18) poison sumac extract (LIPS SWELL, HIVES, BREATHING NOT AFFECTED PER PT 02/11/18) Home Med List: Pantoprazole Sodium 40 MG TABLET. 1 TAB PO DAILY GI (Reported) Paroxetine HCl 30 MG TABLET 1 TAB PO [facility] (Reported) Review of Systems Review of Systems Constitutional: Denies: chills, fever. EENTM: Reports: no symptoms. Cardiovascular: Denies: chest pain, palpitations. Respiratory: Reports: no symptoms. GI: Reports: abdominal pain. Genitourinary: Reports: no symptoms. Musculoskeletal: Reports: no symptoms. Skin: Reports: no symptoms. Neurological/Psychological: Reports: weakness. 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 BROTHER (hypertension and diabetes). FATHER ( at 44 from cancer). MOTHER Relation not specified for: FH: diabetes mellitus Psychosocial History Where Do You Live? Home Who Do You Live With? spouse Services at Home: None Primary Language: Djiboutian Smoking Status: Former Smoker ETOH Use: denies use Illicit Drug Use: denies illicit drug use Functional Ability ADLs Independent: dressing, eating, toileting, bathing. Ambulation: independent IADLs Independent: shopping, housework, finances, food prep, telephone, transportation , medication admin. Exam & Diagnostic Data Last 24 Hrs of Vital Signs/I&O Vital Signs Date Time Temp Pulse Resp B/P B/P Pulse O2 O2 Flow FiO2 Mean Ox Delivery Rate 02/12 0400 94 Room Air 02/12 0000 98 Room Air 02/110 95 Room Air 02/11 2153 98.0 52 16 122/78 100 Nasal 2.0L Cannula 02/110 98.1 53 18 124/82 100 Nasal 2.0L Cannula 02/11 2051 97.7 52 16 122/84 100 Nasal 2.0L Cannula 02/12 2020 56 14 128/80 97 Nasal 2.0L Cannula 02/11 1940 60 14 122/84 96 Room Air 02/11 1925 60 15 126/76 96 Nasal 2.0L Cannula 02/113 97.5 64 18 136/88 96 Nasal 2.0L Cannula 02/11 1911 98 Nasal 2.0L Cannula 02/11 1859 67 18 130/77 98 Room Air 02/11 1838 97.1 67 15 135/88 99 Room Air Room Air Intake & Output 02/12 0800 02/12 0000 02/11 1600 Intake Total 0 Output Total 250 Balance -250 Intake, Oral 0 Output, Urine 250 Patient 227 lb Weight Weight Reported by Patient Measurement Method Physical Exam General Appearance: well developed/nourished, alert, awake, anxious, mild distress Head: atraumatic, normal appearance Eyes: Bilateral: normal appearance. Respiratory: normal breath sounds, chest non-tender, lungs clear Cardiovascular: bradycardia Gastrointestinal: normal bowel sounds, soft, tenderness Extremities: no edema Neurologic/Psych: awake, alert, oriented x 3, chronometer repairer II-XII nml as tested, motor weakness Cranial Nerves: normal hearing, normal speech, PERRL Skin: intact, normal color, warm/dry Last 48 Hrs of Labs/Abel: Laboratory Tests 02/12/18 0719: Troponin I Cancelled 02/12/18 0700: Troponin I Cancelled 02/12/18 0650: Sodium Pending, Potassium Pending, Chloride Pending, Carbon Dioxide Pending, Anion Gap Pending, BUN Pending, Creatinine Pending, BUN/Creatinine Ratio Pending , Magnesium Pending, Troponin I Pending 02/12/18 0055: Troponin I 0.31 *H 02/11/18 190: LDL Cholesterol Direct Cancelled 02/11/181903: Anion Gap 12, Estimated GFR 59 L, BUN/Creatinine Ratio 12.3, Glucose 105 H, Calcium 9.6, Total Bilirubin 0.5, AST 23, ALT 33, Alkaline Phosphatase 74, Troponin I 0.37 *H, Total Protein 7.0, Albumin 4.2, Globulin 2.8, Albumin/ Globulin Ratio 1.5, Triglycerides 678 H, Cholesterol 252 H, LDL Cholesterol Direct 110.40 H, LDL Cholesterol, Calc ND, HDL Cholesterol 38 L, Cholesterol/ HDL Ratio 7 H, PT 10.9, INR 1.00, APTT 27, CBC w Diff NO MAN DIFF REQ, RBC 5.03 , MCV 91.1, MCH 30.5, MCHC 33.5, RDW 12.4, MPV 9.9, Gran % 70.4, Lymphocytes % 19.3 L, Monocytes % 8.9, Eosinophils % 1.1, Basophils % 0.3, Absolute Granulocytes 5.4, Absolute Lymphocytes 1.5, Absolute Monocytes 0.7 H, Absolute Eosinophils 0.1, Absolute Basophils 0 Assessment/Plan CRCU Impression/Plan: 48-year-old gentleman with a past medical history of hypertension, hyperlipidemia, obstructive sleep apnea currently not on BiPAP, former smoker, history of non-STEMI, presented with acute sudden onset of right-sided focal deficits including lower and upper extremity weakness, dysarthria and confusion and NIH score of 8 while at triage. Presented within one hour after onset of symptoms, prompting administration of TPA after CT head ruled out intracranial bleed. CTA head and neck was unremarkable. Assessment: 1. Acute left MCA stroke s/p tPA 2. Elevated Troponins 3. Sinus Bradycardia 4. History of EZE 5. History of Hypertension and CAD Plan: * Continue monitoring in the ICU for now * Keep NPO until formal swallow evaluation * Neurochecks q1. * His Head/Neck CTA was unremarkable. Would obtain MRI to assess for acute and chronic infarcts. * Neurology consult * Repeat Head CT later in the evening to assess for hemorrhage 24 hours after tPA administration. * Trend troponins. * Echocardiogram * Cardiology consult * LINQ monitor does not show any arrhythmias. Would check with cardiology if it is MRI compatible. * PT/OT * Diet: NPO * DVT Prophylaxis: ALPS only. * Code: Full Code Consult Acknowledgment - Thank you for your consult request. Sondra HIRSCH,[facility] 02/12/18 0815: General Information and HPI Consulting Request Date of Consult: 02/12/18 Exam & Diagnostic Data Last 24 Hrs of Vital Signs/I&O Vital Signs Date Time Temp Pulse Resp B/P B/P Pulse O2 O2 Flow FiO2 Mean Ox Delivery Rate 02/12 0400 94 Room Air 02/12 0000 98 Room Air 02/11 2240 95 Room Air 02/113 98.0 52 16 122/78 100 Nasal 2.0L Cannula 02/12 2120 98.1 53 18 124/82 100 Nasal 2.0L Cannula 02/11 2051 97.7 52 16 122/84 100 Nasal 2.0L Cannula 02/12 2020 56 14 128/80 97 Nasal 2.0L Cannula 02/11 1940 60 14 122/84 96 Room Air 02/11 1925 60 15 126/76 96 Nasal 2.0L Cannula 02/11 1913 97.5 64 18 136/88 96 Nasal 2.0L Cannula 02/11 1911 98 Nasal 2.0L Cannula 02/11 1859 67 18 130/77 98 Room Air 02/11 1838 97.1 67 15 135/88 99 Room Air Room Air Intake & Output 02/12 1600 02/12 0800 02/12 0000 Intake Total 0 Output Total 250 Balance -250 Intake, Oral 0 Output, Urine 250 Patient 227 lb Weight Weight Reported by Patient Measurement Method Assessment/Plan CRCU Other Findings/Comments: I have personally seen and examined the patient, and agree with the resident's assessment and plan as detailed above. Briefly, the patient is a 48-year-old male with a history significant for hypertension, hyperlipidemia, obstructive sleep apnea not on treatment, non-ST elevation CT, and former smoker. The patient was admitted overnight with acute sudden onset right-sided focal deficits, dysarthria, confusion and an NIH score of 8. The patient was evaluated and TPA was administered after a head CT ruled out intracranial bleed. CTA of the head and neck was unremarkable. The patient's symptoms improved after TPA administration. He is currently awake, alert and comfortable. He has no dysarthria. He denies any headache, neck stiffness, fever, chills, chest pain or any other associated issues. He has had elevated troponins and noted to be bradycardic in the ICU. He is currently being monitored in the ICU and is on the post TPA protocol. He will be n.p.o. and have a swallowing evaluation today. Neurochecks will be continued every hour. Blood pressure will be monitored per protocol. Will follow up neurology recommendations. An MRI of the head is been planned. A cardiology consult has been called for bradycardia and history of arrhythmias. I discussed the plan of care at the house staff and asked him to contact me should the patient's condition change or should they have any questions. Consult Acknowledgment - Thank you for your consult request.
--- NOTE | 2018-02-12 11:45 | Cons- Cardiology ---
General Information and HPI Consulting Request Date of Consult: 02/12/18 Requested By: Jah Lay MD Reason for Consult: CVA, bradycardia Source of Information: patient, old records History of Present Illness: This is a 48-year-old male with a past medical history of hypertension, nicotine dependence, sleep apnea, renal cell carcinoma with prior nephrectomy, hepatitis C treated with interferon, recurrent myopericarditis with chronic troponin elevation and multiple negative cardiac catheterizations, cervical stenosis with prior fusion, and recurrent syncope status post implantable loop recorder. He presents to [facility] with a chief complaint of sudden onset right-sided weakness along with difficulty speaking; also had some right-sided pain which started in the right lower extremity and went all the way up to his neck. Denied associated chest pain, shortness of breath, or syncope. Does report difficulty with ambulation. The patient did receive TPA on presentation to the hospital. His symptoms subsequently resolved and during my interview with him he reports feeling back to baseline. Allergies/Medications Allergies: Coded Allergies: Penicillins (ITCH 02/11/18) poison joelle extract (LIPS SWELL, HIVES, BREATHING IS NOT AFFECTED PER PT ) poison oak extract (LIPS SWELL, HIVES, BREATHING NOT AFFECTED PER PT 02/11/18) poison sumac extract (LIPS SWELL, HIVES, BREATHING NOT AFFECTED PER PT 02/11/18) Home Med List: Pantoprazole Sodium 40 MG TABLET.DR 1 TAB PO DAILY GI (Reported) Paroxetine HCl 30 MG TABLET 1 TAB PO QA MENTAL HEALTH (Reported) Current Medications: Current Medications Sig/Elian Start time Last Medication Dose Route Stop Time Status Admin Acetaminophen 650 MG Q6P PRN 02/12 0015 AC PO Acetaminophen 1,000 MG Q8 PRN 02/12 0015 AC IV Alteplase, 0 .STK-MED ONE 02/12 1908 DC Recombinant IV Alteplase, 9 MG BOLUS ONE 02/11 1900 DC 02/11 Recombinant IV 02/11 Alteplase, 81 MG ONCE ONE 02/11 1900 DC 02/11 Recombinant IV 02/11 Atorvastatin Calcium 80 MG 1700 02/11 2359 AC 02/12 PO 0101 Sodium Chloride 1,000 ML BOLUS ONE 02/11 2045 DC 02/11 IV 02/11 Review of Systems Review of Systems: Review of systems as per HPI. The remainder of a 10 point review of systems was reviewed and was otherwise negative. 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 BROTHER (hypertension and diabetes). FATHER ( at 44 from cancer). MOTHER Relation not specified for: FH: diabetes mellitus Psychosocial History Where Do You Live? Home Who Do You Live With? spouse Services at Home: None Primary Language: Slovenian Smoking Status: Former Smoker ETOH Use: denies use Illicit Drug Use: denies illicit drug use Functional Ability ADLs Independent: dressing, eating, toileting, bathing. Ambulation: independent IADLs Independent: shopping, housework, finances, food prep, telephone, transportation , medication admin. Exam & Diagnostic Data Vital Signs and I&O Vital Signs Date Time Temp Pulse Resp B/P B/P Pulse O2 O2 Flow FiO2 Mean Ox Delivery Rate 02/12 0800 97 Room Air Room Air 02/12 0700 97.1 46 18 112/76 98 Room Air Room Air 02/12 0400 94 Room Air 02/12 0000 98 Room Air 02/11 2240 95 Room Air 02/113 98.0 52 16 122/78 100 Nasal 2.0L Cannula 02/110 98.1 53 18 124/82 100 Nasal 2.0L Cannula 02/11 2051 97.7 52 16 122/84 100 Nasal 2.0L Cannula 02/12 2020 56 14 128/80 97 Nasal 2.0L Cannula 02/11 1940 60 14 122/84 96 Room Air 02/11 1925 60 15 126/76 96 Nasal 2.0L Cannula 02/11 1913 97.5 64 18 136/88 96 Nasal 2.0L Cannula 02/11 1911 98 Nasal 2.0L Cannula 02/11 1859 67 18 130/77 98 Room Air 02/11 1838 97.1 67 15 135/88 99 Room Air Room Air Intake & Output 02/12 1600 02/12 0802/12 0000 02/11 1600 02/11 0802/11 0000 Intake Total 0 Output Total 250 Balance -250 Intake, Oral 0 Output, Urine 250 Patient 227 lb Weight Weight Reported by Patient Measurement Method Physical Exam: General: no apparent distress. Alert. Eyes: No obvious scleral icterus. HEENT: No jugular venous distention or abnormal jugular venous pulsations. Cardiovascular: Normal intensity S1/S2. Loop recorder noted Respiratory: Lungs clear to auscultation bilaterally. Abdomen: Soft, nontender with no guarding or rebound tenderness. Musculoskeletal: No clubbing or cyanosis noted Skin: warm Neurologic: Normal speech Lymph: No gross lymphadenopathy. Labs/Abel Results: Laboratory Tests 02/12 02/12 02/12 02/12 02/11 0719 0700 0650 0055 1904 Chemistry Sodium (137 - 145 mmol/L) 142 Potassium (3.5 - 5.1 mmol/L) 4.0 Chloride (98 - 107 mmol/L) 107 Carbon Dioxide (22 - 30 mmol/L) 25 Anion Gap (5 - 16) 11 BUN (9 - 20 mg/dL) 15 Creatinine (0.7 - 1.2 mg/dL) 1.2 Estimated GFR (>60 ml/min) > 60 BUN/Creatinine Ratio (7 - 25 %) 12.5 Magnesium (1.6 - 2.3 mg/dL) 2.0 Troponin I (<0.11 ng/ml) Cancelled Cancelled 0.32 *H 0.31 *H LDL Cholesterol Direct Cancelled 02/12 1904 Chemistry Sodium (137 - 145 mmol/L) 142 Potassium (3.5 - 5.1 mmol/L) 4.2 Chloride (98 - 107 mmol/L) 104 Carbon Dioxide (22 - 30 mmol/L) 26 Anion Gap (5 - 16) 12 BUN (9 - 20 mg/dL) 16 Creatinine (0.7 - 1.2 mg/dL) 1.3 H Estimated GFR (>60 ml/min) 59 L BUN/Creatinine Ratio (7 - 25 %) 12.3 Glucose (65 - 99 mg/dL) 105 H Calcium (8.4 - 10.2 mg/dL) 9.6 Total Bilirubin (0.2 - 1.3 mg/dL) 0.5 AST (17 - 59 U/L) 23 ALT (21 - 72 U/L) 33 Alkaline Phosphatase (< 127 U/L) 74 Troponin I (<0.11 ng/ml) 0.37 *H Total Protein (6.3 - 8.2 g/dL) 7.0 Albumin (3.5 - 5.0 g/dL) 4.2 Globulin (1.9 - 4.2 gm/dL) 2.8 Albumin/Globulin Ratio (1.1 - 2.2 %) 1.5 Triglycerides (<150 mg/dL) 678 H Cholesterol (< 200 MG/DL) 252 H LDL Cholesterol Direct (<100 mg/dL) 110.40 H LDL Cholesterol, Calc (65 - 129 mg/dL) ND HDL Cholesterol (40 - 60 mg/dL) 38 L Cholesterol/HDL Ratio (0.00 - 4.88 %) 7 H Coagulation PT (9.4 - 12.5 SEC) 10.9 INR (0.90 - 1.17) 1.00 APTT (25 - 37 SEC) 27 Hematology CBC w Diff NO MAN DIFF REQ WBC (4.8 - 10.8 /CUMM) 7.7 RBC (4.70 - 6.10 /CUMM) 5.03 Hgb (14.0 - 18.0 G/DL) 15.3 Hct (42 - 52 %) 45.8 MCV (80.0 - 94.0 FL) 91.1 MCH (27.0 - 31.0 PG) 30.5 MCHC (33.0 - 37.0 G/DL) 33.5 RDW (11.5 - 14.5 %) 12.4 Plt Count (130 - 400 /CUMM) 200 MPV (7.4 - 10.4 FL) 9.9 Gran % (42.2 - 75.2 %) 70.4 Lymphocytes % (20.5 - 51.1 %) 19.3 L Monocytes % (1.7 - 9.3 %) 8.9 Eosinophils % (0 - 5 %) 1.1 Basophils % (0.0 - 2.0 %) 0.3 Absolute Granulocytes (1.4 - 6.5 /CUMM) 5.4 Absolute Lymphocytes (1.2 - 3.4 /CUMM) 1.5 Absolute Monocytes (0.10 - 0.60 /CUMM) 0.7 H Absolute Eosinophils (0.0 - 0.7 /CUMM) 0.1 Absolute Basophils (0.0 - 0.2 /CUMM) 0 Diagnostic Data EKG Results Tracing was personally reviewed and shows sinus bradycardia at 44 bpm Other Results Telemetry tracings are personally reviewed and shows sinus rhythm and sinus bradycardia Loop recorder interrogation report was personally reviewed and shows no recent events Head CT shows no acute intracranial pathology Assessment/Plan Assessment/Plan 1. Likely acute CVA status post TPA 2. History of recurrence myopericarditis with chronic troponin elevation and multiple negative cardiac catheterizations 3. History of recurrent syncope status post implantable loop recorder with no recent events detected 4. History of hypertension 5. History of renal cell carcinoma with prior nephrectomy 6. History of cervical stenosis with prior fusion 7. Sinus bradycardia The patient is status post TPA and denies residual neurologic symptoms at this time. Suspect asymptomatic sinus bradycardia is vagal in etiology; keep on telemetry for now. Loop recorder interrogation revealed no recent tachycardia or bradycardia arrhythmias. The loop recorder is MRI compatible. Obtain an echocardiogram. Follow-up neurology recommendations. Hardy Funes MD [facility] Consult Acknowledgment - Thank you for your consult request.
--- NOTE | 2018-02-12 12:40 | ECHOCARDIOGRAM REPORT ---
JAKOB GARLAND Age: 48 : 1970 Gender: M Exam Date: 02/12/2018 10:56 Exam Location: [facility] Ht (in): 74 Wt (lb): 227 BSA: 2.34 BP: 122 / 78 Ordering Physician: Joby Barrera MD Referring Physician: Joby Barrera MD Technologist: Rommel Liu [facility] Room Number: 104-1 Indications: Stroke Rhythm: Technical Quality: Fair FINDINGS Left Ventricle Normal global left ventricular size, wall thickness, systolic function with no obvious regional wall motion abnormalities. Left ventricular ejection fraction is estimated at > 55 %. Right Ventricle Normal right ventricular size and function. Right Atrium Normal right atrial size. Left Atrium Normal left atrial size. Mitral Valve Structurally normal mitral valve. Trace mitral regurgitation. Aortic Valve Structurally normal trileaflet aortic valve. No aortic stenosis. Tricuspid Valve Structurally normal tricuspid valve. Mild tricuspid regurgitation. Unable to estimate the right ventricular systolic pressure. Pulmonic Valve Pulmonic valve not well visualized, grossly normal. Pericardium No pericardial effusion. Great Vessels Normal size aortic root. CONCLUSIONS Normal global left ventricular size, wall thickness, systolic function with no obvious regional wall motion abnormalities. Left ventricular ejection fraction is estimated at > 55 %. Normal right ventricular size and function. No pericardial effusion. Juan C Funes M.D. (Electronically Signed) Final Date: 12 February 2018 12:38 MEASUREMENTS (Male / Female) Normal Values 2D ECHO LV Diastolic Diameter PLAX 5.2 cm 4.2 - 5.9 / 3.9 - 5.3 cm LV Systolic Diameter PLAX 3.1 cm 2.1 - 4.0 cm LV Fractional Shortening PLAX 40.4 % 25 - 46 % LV Ejection Fraction 2D Teich 70.7 % IVS Diastolic Thickness 0.9 cm LVPW Diastolic Thickness 0.9 cm LV Relative Wall Thickness 0.3 RV Internal Dim ED PLAX 2.6 cm 1.9 - 3.8 cm LVOT Diameter 2.0 cm Aortic Root Diameter 2.6 cm LA Systolic Diameter LX 3.4 cm 3.0 - 4.0 / 2.7 - 3.8 cm LA Volume 59.0 cm 18 - 58 / 22 - 52 cm Ascending Aorta Diameter 3.0 cm DOPPLER AV Peak Velocity 141.0 cm/s AV Peak Gradient 8.0 mmHg AV Mean Velocity 97.3 cm/s AV Mean Gradient 4.0 mmHg AV Velocity Time Integral 34.2 cm LVOT Peak Velocity 91.0 cm/s LVOT Peak Gradient 3.3 mmHg LVOT Mean Velocity 57.1 cm/s LVOT Mean Gradient 2.0 mmHg LVOT Velocity Time Integral 22.3 cm LVOT Stroke Volume 70.1 cm AV Area Cont Eq vti 2.0 cm AV Area Cont Eq pk 2.0 cm MV Peak Velocity 101.0 cm/s MV Peak Gradient 4.1 mmHg MV Mean Velocity 52.9 cm/s MV Mean Gradient 1.0 mmHg Mitral E Point Velocity 98.7 cm/s Mitral A Point Velocity 57.3 cm/s Mitral E to A Ratio 1.7 MV PHT Velocity 100.0 cm/s MV Deceleration Day 234.0 cm/s MV Pressure Half Time 128.2 ms MV Area PHT 1.7 cm MV Deceleration Time 222.0 ms PV Peak Velocity 117.0 cm/s PV Peak Gradient 5.5 mmHg PV Mean Velocity 87.2 cm/s PV Mean Gradient 3.0 mmHg PV Velocity Time Integral 31.9 cm
--- NOTE | 2018-02-12 15:02 | Cons- Neurology ---
General Information and HPI Consulting Request Date of Consult: 02/12/18 Requested By: Jah Lay MD Reason for Consult: Stroke alert Source of Information: patient, family, old records Exam Limitations: no limitations History of Present Illness: 48-year-old man with a history of hypertension and hyperlipidemia and under evaluation for cardiac problems with a Linq monitor in place but no prior neurologic history suddenly developed pain in the left neck and right great toe followed by rapidly progressive weakness affecting the right arm and leg. Speech was slow and slurred according to family. On arrival at the ER the NIH SS was 7, stroke alert called, CT and CTA negative and TPA administered. He had improved markedly by the time of arrival on the floor and today feels things are back to normal. No associated sensory symptoms, visual problems or cardiac symptomatology. According to the hospitalist the Linq monitor was questioned and no dysrhythmias were found Allergies/Medications Allergies: Coded Allergies: Penicillins (ITCH 02/11/18) poison joelle extract (LIPS SWELL, HIVES, BREATHING IS NOT AFFECTED PER PT ) poison oak extract (LIPS SWELL, HIVES, BREATHING NOT AFFECTED PER PT 02/11/18) poison sumac extract (LIPS SWELL, HIVES, BREATHING NOT AFFECTED PER PT 02/11/18) Home Med List: Pantoprazole Sodium 40 MG TABLET.DR 1 TAB PO DAILY GI (Reported) Paroxetine HCl 30 MG TABLET 1 TAB PO QAM MENTAL HEALTH (Reported) Current Medications: Current Medications Sig/Elian Start time Last Medication Dose Route Stop Time Status Admin Acetaminophen 650 MG ONCE ONE 02/12 1445 DC 02/12 PO 02/12 1446 1444 Acetaminophen 650 MG Q6P PRN 02/12 0015 AC PO Acetaminophen 1,000 MG Q8 PRN 02/12 0015 AC IV Alteplase, 0 .STK-MED ONE 02/12 1908 DC Recombinant IV Alteplase, 9 MG BOLUS ONE 02/11 1900 DC 02/11 Recombinant IV 02/11 Alteplase, 81 MG ONCE ONE 02/11 1900 DC 02/11 Recombinant IV 02/11 Atorvastatin Calcium 80 MG 1700 02/11 2359 AC 02/12 PO 0101 Sodium Chloride 1,000 ML BOLUS ONE 02/11 2045 DC 02/11 IV 02/11 Review of Systems Review of Systems: On the complete medical ROS he currently has no complaints. Specifically no headache, problems with vision, difficulty speaking or understanding others, chest pain, palpitations or dyspnea. He denies lateralized weakness or numbness in the 4 extremities. 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 BROTHER (hypertension and diabetes). FATHER ( at 44 from cancer). MOTHER Relation not specified for: FH: diabetes mellitus Psychosocial History Where Do You Live? Home Who Do You Live With? spouse Services at Home: None Primary Language: Pashto Smoking Status: Former Smoker ETOH Use: denies use Illicit Drug Use: denies illicit drug use Functional Ability ADLs Independent: dressing, eating, toileting, bathing. Ambulation: independent IADLs Independent: shopping, housework, finances, food prep, telephone, transportation , medication admin. Exam & Diagnostic Data Vital Signs and I&O Vital Signs Date Time Temp Pulse Resp B/P B/P Pulse O2 O2 Flow FiO2 Mean Ox Delivery Rate 02/12 1200 97 Room Air Room Air 02/12 0800 97 Room Air Room Air 02/12 0700 97.1 46 18 112/76 98 Room Air Room Air 02/12 0400 94 Room Air 02/12 0000 98 Room Air 02/11 2240 95 Room Air 02/11 2153 98.0 52 16 122/78 100 Nasal 2.0L Cannula 02/12 2120 98.1 53 18 124/82 100 Nasal 2.0L Cannula 02/11 2051 97.7 52 16 122/84 100 Nasal 2.0L Cannula 02/12 2020 56 14 128/80 97 Nasal 2.0L Cannula 02/11 1940 60 14 122/84 96 Room Air 02/11 1925 60 15 126/76 96 Nasal 2.0L Cannula 07/24 1913 97.5 64 18 136/88 96 Nasal 2.0L Cannula 02/11 191 98 Nasal 2.0L Cannula 02/11 1859 67 18 130/77 98 Room Air 02/11 1838 97.1 67 15 135/88 99 Room Air Room Air Intake & Output 02/12 1600 02/12 0800 02/12 0000 Intake Total 400 0 Output Total 675 250 Balance -275 -250 Intake, Oral 400 0 Output, Urine 675 250 Patient 227 lb Weight Weight Reported by Patient Measurement Method Physical Exam: He appears generally well and in no distress, somewhat overweight No carotid bruits or cardiac murmur. Pulses intact all 4 extremities. Alert, attentive, oriented, no language errors or dysarthria. Recall in general fund of knowledge seem intact Visual hess full, pupils 4 mm equal round and reactive to light eye movements conjugate and full without nystagmus. Endoscopic not well visualized due to ambient light. No facial asymmetry or sensory loss, lower cranial nerves normal. 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 very slight downward drift of the right arm and mild slowing of sequential finger tapping on the right compared with left No cerebellar signs Sensation intact bilaterally Tendon reflexes symmetric with no pathologic signs Gait testing deferred Last 48 Hours of Lab Results: Laboratory Tests 02/12 02/12 02/12 02/12 02/12 1300 0719 0700 0650 0055 Chemistry Sodium (137 - 145 mmol/L) 142 Potassium (3.5 - 5.1 mmol/L) 4.0 Chloride (98 - 107 mmol/L) 107 Carbon Dioxide (22 - 30 mmol/L) 25 Anion Gap (5 - 16) 11 BUN (9 - 20 mg/dL) 15 Creatinine (0.7 - 1.2 mg/dL) 1.2 Estimated GFR (>60 ml/min) > 60 BUN/Creatinine Ratio (7 - 25 %) 12.5 Magnesium (1.6 - 2.3 mg/dL) 2.0 Troponin I (<0.11 ng/ml) 0.34 *H Cancelled Cancelled 0.32 *H 0.31 *H 02/11 02/11 190 190 Chemistry Sodium (137 - 145 mmol/L) 142 Potassium (3.5 - 5.1 mmol/L) 4.2 Chloride (98 - 107 mmol/L) 104 Carbon Dioxide (22 - 30 mmol/L) 26 Anion Gap (5 - 16) 12 BUN (9 - 20 mg/dL) 16 Creatinine (0.7 - 1.2 mg/dL) 1.3 H Estimated GFR (>60 ml/min) 59 L BUN/Creatinine Ratio (7 - 25 %) 12.3 Glucose (65 - 99 mg/dL) 105 H Calcium (8.4 - 10.2 mg/dL) 9.6 Total Bilirubin (0.2 - 1.3 mg/dL) 0.5 AST (17 - 59 U/L) 23 ALT (21 - 72 U/L) 33 Alkaline Phosphatase (< 127 U/L) 74 Troponin I (<0.11 ng/ml) 0.37 *H Total Protein (6.3 - 8.2 g/dL) 7.0 Albumin (3.5 - 5.0 g/dL) 4.2 Globulin (1.9 - 4.2 gm/dL) 2.8 Albumin/Globulin Ratio (1.1 - 2.2 %) 1.5 Triglycerides (<150 mg/dL) 678 H Cholesterol (< 200 MG/DL) 252 H LDL Cholesterol Direct (<100 mg/dL) Cancelled 110.40 H LDL Cholesterol, Calc (65 - 129 mg/dL) ND HDL Cholesterol (40 - 60 mg/dL) 38 L Cholesterol/HDL Ratio (0.00 - 4.88 %) 7 H Coagulation PT (9.4 - 12.5 SEC) 10.9 INR (0.90 - 1.17) 1.00 APTT (25 - 37 SEC) 27 Hematology CBC w Diff NO MAN DIFF REQ WBC (4.8 - 10.8 /CUMM) 7.7 RBC (4.70 - 6.10 /CUMM) 5.03 Hgb (14.0 - 18.0 G/DL) 15.3 Hct (42 - 52 %) 45.8 MCV (80.0 - 94.0 FL) 91.1 MCH (27.0 - 31.0 PG) 30.5 MCHC (33.0 - 37.0 G/DL) 33.5 RDW (11.5 - 14.5 %) 12.4 Plt Count (130 - 400 /CUMM) 200 MPV (7.4 - 10.4 FL) 9.9 Gran % (42.2 - 75.2 %) 70.4 Lymphocytes % (20.5 - 51.1 %) 19.3 L Monocytes % (1.7 - 9.3 %) 8.9 Eosinophils % (0 - 5 %) 1.1 Basophils % (0.0 - 2.0 %) 0.3 Absolute Granulocytes (1.4 - 6.5 /CUMM) 5.4 Absolute Lymphocytes (1.2 - 3.4 /CUMM) 1.5 Absolute Monocytes (0.10 - 0.60 /CUMM) 0.7 H Absolute Eosinophils (0.0 - 0.7 /CUMM) 0.1 Absolute Basophils (0.0 - 0.2 /CUMM) 0 Imaging/Other Studies: CT head: There is no evidence of acute intracranial hemorrhage or territorial infarction. No abnormal mass effect or midline shift is seen. Gloria to white matter differentiation is well preserved. No extra-axial fluid collections are identified. The ventricles are normal in size. There is no abnormal attenuation within the brain parenchyma. The osseous structures and soft tissues are normal. The mastoid air cells and visualized portions of the paranasal sinuses are well aerated. IMPRESSION: No acute intracranial pathology. CTA head and neck: No occlusions or stenosis Echocardiogram: No suggestion of any cardiac source for emboli Assessment/Plan Assessment: Cerebral ischemia, stroke syndrome affecting the left MCA territory with right hemiparesis and language impairment, markedly improved rapidly after TPA administration. Very minimal motor findings, slight drift and reduced sequential finger tapping speed on the right Recommendations: Continue TPA protocol, no antithrombotics for 24 hours. Atorvastatin already started, high intensity Begin aspirin 81 mg EC daily after the 24 hour limit Patient may be up out of bed Stroke education May be a candidate for early discharge in view of his excellent outcome Consult Acknowledgment - Thank you for your consult request.
[2018-02-12 16:00] VITALS: BP 124/78
--- NOTE | 2018-02-12 19:03 | MRI REPORT ---
EXAMINATION: MR BRAIN WITHOUT CONTRAST CLINICAL INFORMATION: Dysarthria status post TPA COMPARISON: 02/11/2018 TECHNIQUE: MRI of the brain without contrast was obtained using routine sequences. FINDINGS: No focal lesion is measurable. No focal reduced diffusion is seen to suggest acute or subacute cerebral ischemia. No intracranial mass, intracerebral edema, intra-axial blood products, midline shift, or extra-axial collection is visualized. The ventricles and sulcal spaces appear normal. Normal arterial and venous vascular flow voids are present. The paranasal sinuses are well aerated. IMPRESSION: No evidence for any acute infarct. No focal lesion. No hemorrhage.
[2018-02-12 20:00] VITALS: BP 122/80
[2018-02-13] VITALS: BP 118/72
[2018-02-13 06:10] LABS: ABSOLUTE BASOPHIL COUNT 0 /CUMM (0.0-0.2); ABSOLUTE EOSINOPHIL COUNT 0.1 /CUMM (0.0-0.7); ABSOLUTE GRANULOCYTE CT 4.8 /CUMM (1.4-6.5); ABSOLUTE LYMPH COUNT 1.6 /CUMM (1.2-3.4); ABSOLUTE MONOCYTE COUNT 0.6 /CUMM (0.10-0.60); BASOPHIL % 0.2 % (0.0-2.0); EOSINOPHIL % 1.6 % (0-5); GRANULOCYTE % 67.3 % (42.2-75.2); HEMATOCRIT 43.6 % (42-52); MEAN CORPUSCULAR HGB CONC 33.9 G/DL (33.0-37.0); MEAN CORPUSCULAR VOLUME 91.2 FL (80.0-94.0); MEAN PLATELET VOLUME 10.5 FL (7.4-10.4); PLATELET COUNT 161 /CUMM (130-400); RBC DISTRIBUTION WIDTH 12.7 % (11.5-14.5); RED BLOOD CELL CT 4.78 /CUMM (4.70-6.10); WHITE BLOOD CELL COUNT 7.1 /CUMM (4.8-10.8)
--- NOTE | 2018-02-13 07:31 | PN- Resident CRCU ---
Subjective HPI/CRCU Issues: Acute left MCA stroke s/p tPA Elevated Troponins Sinus Bradycardia 24 Hour Events: No acute events overnight. He feels better today. Denies any residual weakness. Offers no complaints. Objective Vital Signs & I&O Last 8 Hrs of Vitals and I&O: . Exam General Appearance: well developed/nourished, no apparent distress, alert, awake , comfortable Head: atraumatic, normal appearance Respiratory: normal breath sounds, chest non-tender, lungs clear Cardiovascular: bradycardia Gastrointestinal: soft, non-tender Extremities: no edema, normal motor strength 5/5 Cranial Nerves: normal hearing, normal speech, PERRL, CN II-XII grossly normal Skin: intact, normal color Skin Temp/Moisture Exam: Warm/Dry Sepsis Skin Exam (color): Normal for Ethnicity Current Medications: Current Medications Sig/Elian Start time Last Medication Dose Route Stop Time Status Admin Acetaminophen 650 MG ONCE ONE 02/12 1445 DC 02/12 PO 02/12 1446 1444 Acetaminophen 650 MG Q6P PRN 02/12 0015 AC PO Acetaminophen 1,000 MG Q8 PRN 02/12 0015 AC IV Aspirin 81 MG DAILY 02/14 2000 AC PO Atorvastatin Calcium 80 MG 1700 02/11 2359 AC 02/12 PO 1716 Impression/Plan Impression/Problem List Impression: 48-year-old gentleman with a past medical history of hypertension, hyperlipidemia, obstructive sleep apnea currently not on BiPAP, former smoker, history of non-STEMI, presented with acute sudden onset of right-sided focal deficits including lower and upper extremity weakness, dysarthria and confusion and NIH score of 8 while at triage. Presented within one hour after onset of symptoms, prompting administration of TPA after CT head ruled out intracranial bleed. CTA head and neck was unremarkable. Assessment: 1. Acute left MCA stroke s/p tPA 2. Elevated Troponins 3. Sinus Bradycardia 4. History of EZE 5. History of Hypertension and CAD Plan: * Stable to be downgraded to general medicine. * He passed his formal swallow eval yesterday. * His Head/Neck CTA was unremarkable. * MRI yesterday did not show any evidence of infarct or hemorrhage. * Neurology input - appreciated. * Troponins have trended down * Continue aspirin and high dose statin. * Echocardiogram did not showed normal LVEF without any abnormalities * LINQ monitor did not show any arrhythmias. * PT/OT * Diet: Regular * DVT Prophylaxis: ALPS only. * Code: Full Code Problem List: 1. CVA (cerebral vascular accident) Pain Ratin Tomorrow's Labs & Rationales: BEP Plan DVT/Prophylaxis: mechanical
[2018-02-13 08:00] VITALS: BP 120/80
--- NOTE | 2018-02-13 09:19 | PN- CRCU ---
Subjective HPI/Critical Care Issues: The patient is awake and alert. He is feeling much better. His symptoms have nearly resolved. There were no overnight events. Objective Current Medications: Current Medications Sig/Elian Start time Last Medication Dose Route Stop Time Status Admin Acetaminophen 650 MG ONCE ONE 02/12 1445 DC 02/12 PO 02/12 1446 1444 Acetaminophen 650 MG Q6P PRN 02/12 0015 AC PO Acetaminophen 1,000 MG Q8 PRN 02/12 0015 AC IV Aspirin 81 MG DAILY 02/14 2000 AC PO Atorvastatin Calcium 80 MG 1700 02/11 2359 AC 02/12 PO 1716 Vital Signs & I&O Last 24 Hrs of Vitals and I&O: Vital Signs Date Time Temp Pulse Resp B/P B/P Pulse O2 O2 Flow FiO2 Mean Ox Delivery Rate 02/13 0800 93 Room Air Room Air 02/13 0800 97.1 48 18 120/80 93 Room Air Room Air 02/13 0400 94 Room Air 02/13 0000 93 Room Air 02/13 0000 97.0 60 18 118/72 93 Room Air 02/12 2000 98 Room Air 02/12 2000 98.9 56 18 122/80 98 Room Air 02/12 1600 97 Room Air Room Air 02/12 1600 97.1 60 18 124/78 97 Room Air Room Air 02/12 1200 97 Room Air Room Air Intake & Output 02/13 1600 02/13 0800 02/13 0000 Intake Total 100 800 Output Total 600 675 Balance -500 125 Intake, Oral 100 800 Output, Urine 600 675 Physical Exam General Appearance: well developed/nourished, alert, awake, no distress Head: atraumatic, normal appearance Eyes: Bilateral: normal appearance. Respiratory: normal breath sounds, chest non-tender, lungs clear Cardiovascular: bradycardia Gastrointestinal: normal bowel sounds, soft, tenderness Extremities: no edema Neurologic/Psych: awake, alert, oriented x 3 Cranial Nerves: normal speech, PERRL Skin: intact, normal color, warm/dry Results Last 24 Hrs of Lab Results: Laboratory Tests 02/13/18 0430: CBC w Diff NO MAN DIFF REQ, RBC 4.78, MCV 91.2, MCH 31.0, MCHC 33.9, RDW 12.7, MPV 10.5 H, Gran % 67.3, Lymphocytes % 22.5, Monocytes % 8.4, Eosinophils % 1.6 , Basophils % 0.2, Absolute Granulocytes 4.8, Absolute Lymphocytes 1.6, Absolute Monocytes 0.6, Absolute Eosinophils 0.1, Absolute Basophils 0 02/12/18 1920: Troponin I 0.34 *H 02/12/18 1300: Troponin I 0.34 *H Impression/Plan Impression/Plan Impression/Plan: 1. Acute left MCA stroke s/p tPA. 2. Elevated Troponins. 3. Sinus Bradycardia. 4. History of EZE. 5. History of Hypertension and CAD. Recommendations: * Speech therapy, OT/PT input. * Cardiology input. * Heart healthy diet. * Atorvastatin. * Aspirin. * Out of bed, ambulate. * Stroke education. * Appreciate all consultants input.
--- NOTE | 2018-02-13 10:28 | PN- Cardiology ---
Subjective Subjective: Patient feels well. Anticipating transfer to general med floor today. Sinus rhythm throughout. Objective Vital Signs and I&Os Vital Signs Date Time Temp Pulse Resp B/P B/P Pulse O2 O2 Flow FiO2 Mean Ox Delivery Rate 02/13 0800 93 Room Air Room Air 02/13 0800 97.1 48 18 120/80 93 Room Air Room Air 02/13 0400 94 Room Air 02/13 0000 93 Room Air 02/13 0000 97.0 60 18 118/72 93 Room Air 02/12 2000 98 Room Air 02/12 2000 98.9 56 18 122/80 98 Room Air 02/12 1600 97 Room Air Room Air 02/12 1600 97.1 60 18 124/78 97 Room Air Room Air 02/12 1200 97 Room Air Room Air Intake & Output 02/13 1600 02/13 0800 02/13 0000 02/12 1600 02/12 0800 02/12 0000 Intake Total 100 800 400 0 Output Total 600 675 675 250 Balance -500 125 -275 -250 Intake, Oral 100 800 400 0 Output, Urine 600 675 675 250 Patient 227 lb Weight Weight Reported by Patient Measurement Method Physical Exam: On general exam patient comfortable Head normocephalic atraumatic Eyes sclera anicteric conjunctiva showed no pallor extraocular muscles were normal Neck no jugular venous tension no thyroid masses no palpable nodes Chest lungs were clear bilaterally Heart regular rhythm with a 1/6 systolic murmur Abdomen soft no organomegaly bowel sounds normal Extremities no clubbing cyanosis edema Neurological no gross motor or sensory deficit. Results Recent Imaging Studies: Head MRI negative for stroke CTA of the neck was normal. Assessment/Plan Assessment/Plan In summary this 48-year-old gentleman has a following problems 1. Likely acute CVA status post TPA 2. History of recurrence myopericarditis with chronic troponin elevation and multiple negative cardiac catheterizations 3. History of recurrent syncope status post implantable loop recorder with no recent events detected 4. History of hypertension 5. History of renal cell carcinoma with prior nephrectomy 6. History of cervical stenosis with prior fusion 7. Sinus bradycardia No cardiac source of emboli noted. Linq monitor demonstrates sinus rhythm throughout. MRI of the brain suggest no documented infarct. [facility] Continue telemetry? No
--- NOTE | 2018-02-13 10:48 | Patient Discharge Instructions ---
Discharge Instructions General Discharge Information You were seen/treated for: [place] Special Instructions: Please follow up with your manager adult and PCP within one week of discharge. Please follow up with your neurologist within 3-4 weeks of discharge. Diet Continue normal diet: Yes Activity Full Activity/No Limits: Yes Acute Coronary Syndrome Inclusion Criteria At DC or during hospital stay patient has or had the following: ACS DIAGNOSIS No Discharge Core Measures Meds if any: Prescribed or Continued at Discharge Meds if any: NOT Prescribed or Continued at Discharge Congestive Heart Failure Inclusion Criteria At DC or during hospital stay patient has or had the following: CHF DIAGNOSIS No Discharge Core Measures Meds if any: Prescribed or Continued at Discharge Meds if any: NOT Prescribed or Continued at Discharge Cerebrovascular accident Inclusion Criteria At DC or during hospital stay patient has or had the following: CVA/TIA Diagnosis Yes Discharge Core Measures Meds if any: Prescribed or Continued at Discharge Antithrombotic Yes Statin (required if LDL =>70) Yes Anticoagulant No Meds if any: NOT Prescribed or Continued at Discharge No Antithrombotic d/t Medical Contraindication Venous thromboembolism Inclusion Criteria VTE Diagnosis No VTE Type NONE VTE Confirmed by (Test) NONE Discharge Core Measures - Per Current guidelines, there needs to be overlap - treatment for the first 5 days of Warfarin therapy. - If discharged on Warfarin prior to 5 days of - overlap therapy, the patient will need to be - assessed for post discharge needs including - *Post discharge parental anticoagulation - *Warfarin and/or parental anticoagulation education - *Follow up date to check INR post discharge At least 5 days overlap therapy as Inpatient No Meds if any: Prescribed or Continued at Discharge Note: Overlap Therapy is Warfarin and Anticoagulant Meds if any: NOT Prescribed or Continued at Discharge
[2018-02-13] MEDS ORDERED: ASPIRIN81 M4 PO (10:49)
[2018-02-13] MEDS ORDERED: ATORVASTATIN CA80 M1 PO (10:49)
--- NOTE | 2018-02-13 15:04 | PN- Neurology ---
Subjective Subjective: Neurologically feels back to normal Review of Systems: doesn't feel well in general abdominal pain, steady not cramping, no associated nausea or diarrhea no muscle pain Objective Vital Signs and I&Os Vital Signs Date Time Temp Pulse Resp B/P B/P Pulse O2 O2 Flow FiO2 Mean Ox Delivery Rate 02/13 0800 93 Room Air Room Air 02/13 0800 97.1 48 18 120/80 93 Room Air Room Air 02/13 0400 94 Room Air 02/13 0000 93 Room Air 02/13 0000 97.0 60 18 118/72 93 Room Air 02/12 2000 98 Room Air 02/13 2000 98.9 56 18 122/80 98 Room Air 02/12 1600 97 Room Air Room Air 02/12 1600 97.1 60 18 124/78 97 Room Air Room Air Intake & Output 02/13 1600 02/13 0800 02/13 0000 02/12 1600 02/12 0800 02/12 0000 Intake Total 800 100 800 400 0 Output Total 600 600 675 675 250 Balance 200 -500 125 -275 -250 Intake, Oral 800 100 800 400 0 Output, Urine 600 600 675 675 250 Patient 227 lb Weight Weight Reported by Patient Measurement Method Physical Exam: alert, speech clear, language normal EOMI, P4ERRL no facial weakness power BUE normal without drift coordination screens normal BUE Current Medications: Current Medications Sig/Elian Start time Last Medication Dose Route Stop Time Status Admin Acetaminophen 650 MG Q6P PRN 02/12 001 AC PO Acetaminophen 1,000 MG Q8 PRN 02/12 0015 AC 02/13 IV 1452 Aspirin 81 MG DAILY 02/14 2000 AC PO Atorvastatin Calcium 80 MG 1700 02/11 2359 AC 02/12 PO 1716 Results Last 24 Hours of Lab Results: Laboratory Tests 02/13 02/12 0430 1920 Chemistry Troponin I (<0.11 ng/ml) 0.34 *H Hematology CBC w Diff NO MAN DIFF REQ WBC (4.8 - 10.8 /CUMM) 7.1 RBC (4.70 - 6.10 /CUMM) 4.78 Hgb (14.0 - 18.0 G/DL) 14.8 Hct (42 - 52 %) 43.6 MCV (80.0 - 94.0 FL) 91.2 MCH (27.0 - 31.0 PG) 31.0 MCHC (33.0 - 37.0 G/DL) 33.9 RDW (11.5 - 14.5 %) 12.7 Plt Count (130 - 400 /CUMM) 161 MPV (7.4 - 10.4 FL) 10.5 H Gran % (42.2 - 75.2 %) 67.3 Lymphocytes % (20.5 - 51.1 %) 22.5 Monocytes % (1.7 - 9.3 %) 8.4 Eosinophils % (0 - 5 %) 1.6 Basophils % (0.0 - 2.0 %) 0.2 Absolute Granulocytes (1.4 - 6.5 /CUMM) 4.8 Absolute Lymphocytes (1.2 - 3.4 /CUMM) 1.6 Absolute Monocytes (0.10 - 0.60 /CUMM) 0.6 Absolute Eosinophils (0.0 - 0.7 /CUMM) 0.1 Absolute Basophils (0.0 - 0.2 /CUMM) 0 Recent Imaging Studies: LFTs normal 02/11 Assessment/Plan Assessment: Stroke, excellent response to TPA with full clinical recovery Abdominal pain Plan: Ok neurologically for discharge home, but needs rapid evaluation of abd pain, if no cause found consider adverse reaction to the statin or ASA reduce atorvastatin empirically to 40 mg daily out-patient neuro f/u in 3-4 weeks
--- NOTE | 2018-02-13 15:21 | Discharge Summary ---
Visit Information Visit Dates Admission Date: 02/11/18 Discharge Date: 02/14/18 Hospital Course Course Attending Physician: Laila Payton MD Primary Care Physician: Chris HIRSCH,Gisel Hospital Course: Mr Nichols is a 48-year-old gentleman with a past medical history of hypertension, hyperlipidemia, obstructive sleep apnea currently not on BiPAP, former smoker, history of non-STEMI who presented with sudden onset of right-sided focal deficits including lower and upper extremity weakness, dysarthria and confusion. Below is a list of conditions he was seen and treated for: #Acute left MCA stroke s/p tPA On admission to the ER he was found to have persistent symptoms and NIH score of 8. He presented within one hour after onset of symptoms prompting administration of TPA after CT head ruled out intracranial bleed. CTA head and neck was unremarkable. He was admitted to the ICU for monitoring after tPA. Patient had significant improvement in his symptoms after tPA administration. He had a stable course thereafter. Neurology was consulted and the patient was considered a candidate for early discharge in view of his excellent outcome. An MRI was performed 24 hours after tPA which showed no signs of acute/chronic infarct or ICH. He was discharged in stable disposition. #Elevated Troponins #Sinus Bradycardia The patient was found to have a modest elevation in his troponin. He has a history of myopericarditis with chronic elevation in troponin. He has had multiple negative cardiac catheterizations in the past. His asymptomatic sinus bradycardia was suspected to be vagal in etiology. His Loop recorder interrogation revealed no recent tachycardia or bradycardia arrhythmias. An echocardiogram was performed which showed normal LVEF with no obvious regional wall motion abnormalities. He was recommended to follow up with his internal consultant within one week of discharge. Allergies: Coded Allergies: Penicillins (ITCH 02/11/18) poison joelle extract (LIPS SWELL, HIVES, BREATHING IS NOT AFFECTED PER PT ) poison oak extract (LIPS SWELL, HIVES, BREATHING NOT AFFECTED PER PT 02/11/18) poison sumac extract (LIPS SWELL, HIVES, BREATHING NOT AFFECTED PER PT 02/11/18) Significant Procedures: SERVICE DATE: 02/12/18-0500 EXAM TYPE: CARD - ECHOCARDIOGRAM FINDINGS Left Ventricle Normal global left ventricular size, wall thickness, systolic function with no obvious regional wall motion abnormalities. Left ventricular ejection fraction is estimated at > 55 %. Right Ventricle Normal right ventricular size and function. Right Atrium Normal right atrial size. Left Atrium Normal left atrial size. Mitral Valve Structurally normal mitral valve. Trace mitral regurgitation. Aortic Valve Structurally normal trileaflet aortic valve. No aortic stenosis. Tricuspid Valve Structurally normal tricuspid valve. Mild tricuspid regurgitation. Unable to estimate the right ventricular systolic pressure. Pulmonic Valve Pulmonic valve not well visualized, grossly normal. Pericardium No pericardial effusion. Great Vessels Normal size aortic root. CONCLUSIONS Normal global left ventricular size, wall thickness, systolic function with no obvious regional wall motion abnormalities. Left ventricular ejection fraction is estimated at > 55 %. Normal right ventricular size and function. No pericardial effusion. SERVICE DATE: 02/12/18- EXAM TYPE: MRI - MRI-HEAD W/O TERENCE FINDINGS: No focal lesion is measurable. No focal reduced diffusion is seen to suggest acute or subacute cerebral ischemia. No intracranial mass, intracerebral edema, intra-axial blood products, midline shift, or extra-axial collection is visualized. The ventricles and sulcal spaces appear normal. Normal arterial and venous vascular flow voids are present. The paranasal sinuses are well aerated. IMPRESSION: No evidence for any acute infarct. No focal lesion. No hemorrhage. SERVICE DATE: 02/11/18 EXAM TYPE: CAT - CT HEAD ANGIOGRAM; CT NECK ANGIOGRAM FINDINGS: Nonvascular: There are dependent changes at the lung apices. There is a stable precarinal lymph node measuring 8 mm in short axis. No mediastinal adenopathy is visualized. No discrete thyroid lesion. Thyroid tissue is noted to extend to the level of the hyoid. The imaged pharyngeal and laryngeal contours appear unremarkable. The visualized oral cavity is unremarkable. No cervical adenopathy. The parotid and submandibular glands appear symmetric in attenuation without sialadenitis. The orbits are unremarkable. No acute intracranial abnormality. No abnormal intracranial enhancement. The ventricles, sulci, and extra-axial CSF spaces appear normal in caliber and configuration. Attenuation within the brain parenchyma appears unremarkable. The imaged paranasal sinuses are notable for mild mucosal thickening and small retention cysts at the maxillary bases. The patient is edentulous. The nasal cavity is clear. The mastoid air cells and middle ear cavities are clear. There has been C5 corpectomy with anterior cervical discectomy and fusion at C4-C6. No acute osseous abnormality. Mild multilevel cervical spondylosis. Vascular: The aortic arch is normal in caliber. There is a common origin of the left common carotid and innominate artery. There is a normal origin of the right common carotid artery. There are normal origins of both vertebral arteries. The proximal subclavian arteries appear unremarkable. The common carotid arteries, carotid bulbs, and cervical internal carotid arteries are normally opacified and normal in caliber. The cervical vertebral arteries are normally opacified and normal in caliber. The distal internal carotid arteries, carotid termini, as well as the anterior and middle cerebral arteries and the anterior communicating artery appear unremarkable. The right CHERYLE A1 segment is diminutive, a normal variant. There is normal arborization of the anterior circulation. The intradural vertebral arteries, basilar artery, and vertebrobasilar branches appear unremarkable. There is no evidence of aneurysm, significant stenosis, occlusion, or vascular malformation. The major dural venous sinuses, deep and cortical veins opacify normally. IMPRESSION: Normal CTA of the head and neck. No acute intracranial abnormality. No abnormal intracranial enhancement. SERVICE DATE: 02/11/18 EXAM TYPE: CAT - CT HEAD WO IV CONTRAST FINDINGS: There is no evidence of acute intracranial hemorrhage or territorial infarction. No abnormal mass effect or midline shift is seen. Gloria to white matter differentiation is well preserved. No extra-axial fluid collections are identified. The ventricles are normal in size. There is no abnormal attenuation within the brain parenchyma. The osseous structures and soft tissues are normal. The mastoid air cells and visualized portions of the paranasal sinuses are well aerated. IMPRESSION: No acute intracranial pathology. Disposition Summary Disposition Principal Diagnosis: Acute Left MCA Infarct Elevated Troponins Sinus Bradycardia Additional Diagnosis: hypertension hyperlipidemia obstructive sleep apnea Discharge Disposition: home or self care Discharge Instructions General Discharge Information Code Status: Full Code Patient's Diet: Heart Healthy Patient's Activity: As tolerated Follow-Up Instructions/Appts: Please follow up with your neurologist, internal consultant and PCP within one week of discharge. Medications at Discharge Discharge Medications: Continue taking these medications: Paroxetine HCl (Paroxetine HCl) 30 MG TABLET 1 Tablet ORAL Every Morning Qty = 30 Comments: not given in hospital Pantoprazole Sodium (Pantoprazole Sodium) 40 MG TABLET.DR 1 Tablet ORAL DAILY Qty = 30 Comments: NOT GIVEN IN HOSPITAL Start taking the following new medications: Atorvastatin Calcium (Atorvastatin Calcium) 80 MG TABLET 80 Milligram ORAL 5 PM Qty = 30 No Refills Instructions: . Comments: Last Taken:02/13/18 Time:440pm Aspirin (Aspirin*) 81 MG TAB.CHEW 81 Milligram ORAL DAILY Qty = 30 No Refills Instructions: . Comments: Last Taken:02/14/18 Time:1000am Copies To: Chris HIRSCH,Gisel Attending MD Review Statement Documenting Attending: Laila Payton MD Other Findings: Patient transferred from ICU to [facility] after stroke s/p tpa with no residual deficit. Neurology cleared for discharge on asa/statin. Needs to follow up with Neurology and PCP. Monitor bp at doctors office.
[2018-02-13] MEDS ORDERED: EPZICOM TABLET1 EACH PO (15:23)
[2018-02-13 15:28] VITALS: BP 132/80
--- NOTE | 2018-02-13 17:45 | RADIOLOGY REPORT ---
EXAMINATION: XR PORTABLE CHEST CLINICAL INFORMATION: Chest pain COMPARISON: Chest x-ray 11/20/2017 TECHNIQUE: Portable frontal view of the chest was obtained. 5:07 PM FINDINGS: There is no acute abnormality. Lungs are clear. No pulmonary vascular congestion. No infiltrate or pleural effusion. There is no pneumothorax. No acute osseous abnormality. There is an old healed fracture of the midshaft of the right clavicle. IMPRESSION: Unremarkable examination.
[2018-02-13 20:45] VITALS: BP 120/84
[2018-02-14 06:50] VITALS: BP 110/80
--- NOTE | 2018-02-14 08:32 | PN- Housestaff ---
Laila Payton 02/14/18 1151: Attending MD Review Statement Attending Statement Attending MD Statement: examined this patient, discuss w/resident/PA/ASSOCIATE MEDICAL DIRECTOR, agreed w/resident/PA/ASSOCIATE MEDICAL DIRECTOR, discussed with family, reviewed EMR data (avail), discussed with nursing, discussed with case mgmt, reviewed images, amended to note Attending Assessment/Plan: Patient with significnat improvement with tpa for stroke. Patient is medically stable for discharge on asa/statin. Monitor bp at home and PCP office. Patient can be discharged in stable condition. F/U PCP and neurology after discharge.
[2018-02-14] MEDS ORDERED: ASPIRIN81 M4 PO (11:31)
[2018-02-14] MEDS ORDERED: ATORVASTATIN CA80 M1 PO (11:31)
== END 2018-02-14 11:59 | DRG 63 ==
LOC: ERH 18:32 → CRI 21:06 → ERHI 21:06 → ENRESERV 21:28 → ENTRNSPT 22:05 → EDTRNSPT 22:11 → EDTRNSPTSTS 22:11 → EDTRNSPT 22:20 → CRI 22:35 → CMPTRNSPT 22:50 → DELTRNSPT 02-13 12:52 → ENTRNSPT 02-13 13:54 → EDTRNSPTSTS 02-13 14:03 → EDTRNSPT 02-13 14:03 → 2NA 02-13 14:12 → CMPTRNSPT 02-13 14:18 → 2NA 02-14 07:45 → ENPENDDIS 02-14 11:53 → 2NA 02-14 11:59
PROVIDERS: Internal Medicine; Physician Assistant Medical
DX: I63.512 Cerebral infarction due to unspecified occlusion or stenosis of left middle cerebral artery (principal); R29.708 NIHSS score 8; E78.5 Hyperlipidemia, unspecified; I10 Essential (primary) hypertension; I25.2 Old myocardial infarction; G47.33 Obstructive sleep apnea (adult) (pediatric); Z88.0 Allergy status to penicillin; R00.1 Bradycardia, unspecified; R79.89 Other specified abnormal findings of blood chemistry; F32.9 Major depressive disorder, single episode, unspecified; F41.9 Anxiety disorder, unspecified; B18.2 Chronic viral hepatitis C; Z90.5 Acquired absence of kidney; Z98.1 Arthrodesis status; Z85.528 Personal history of other malignant neoplasm of kidney; I25.10 Atherosclerotic heart disease of native coronary artery without angina pectoris
CPT/HCPCS: 2NASP; 70551; CCU; 36415; 71045; 82436; 93005; 93010; 93306; 97110-GO; 97116-GO; 97161-GP; 99291; J0131; J3490

== ENCOUNTER 2018-02-24 21:32 | Inpatient (IN) | payer OTHER ==
[~2018-02-24] VITALS: Ht 185.4 cm; Wt 103.1 kg
[~2018-02-24 21:32] MED LIST changes: +ASPIRIN81 M4 PO; +ATORVASTATIN CA80 M1 PO; +EPZICOM TABLET1 EACH PO
--- NOTE | 2018-02-24 21:54 | ED NEURO DEFICIT/STROKE ---
History of Present Illness General Chief Complaint: Headache Stated Complaint: HARDING Source: family, old records Exam Limitations: clinical condition Vital Signs & Intake/Output Vital Signs & Intake/Output Vital Signs Date Time Temp Pulse Resp B/P B/P Pulse O2 O2 Flow FiO2 Mean Ox Delivery Rate 02/24 2251 67 16 124/78 97 02/24 2137 97.6 60 18 144/86 98 Room Air ED Intake and Output 02/25 0000 02/24 1200 Intake Total Output Total Balance Patient 229 lb Weight Weight Reported by Patient Measurement Method Allergies Coded Allergies: Penicillins (ITCH 02/11/18) poison joelle extract (LIPS SWELL, HIVES, BREATHING IS NOT AFFECTED PER PT ) poison oak extract (LIPS SWELL, HIVES, BREATHING NOT AFFECTED PER PT 02/11/18) poison sumac extract (LIPS SWELL, HIVES, BREATHING NOT AFFECTED PER PT 02/11/18) Reconcile Medications Aspirin (Aspirin*) 81 MG TAB.CHEW 81 MG PO DAILY [facility] . Atorvastatin Calcium 80 MG TABLET 80 MG PO 1700 Heart M.dot . Pantoprazole Sodium 40 MG TABLET. 1 TAB PO DAILY GI (Reported) Paroxetine HCl 30 MG TABLET 1 TAB PO [facility] (Reported) Triage Note: PT FROM HOME C/O HARDING TO THE LEFT SIDE OF PTS HEAD THAT BEGAN 1X WEEK AGO, LAST VISIT IN THE ER PT HAD A CVA AND PLACED ON TPA. PTS DAUGHTER UNABLE TO ANSWER MOST QUESTIONS. PT ARRIVED IN A WHEELCHAIR, BLANK STARE AND UNABLE TO ANSWER MOST QUESTIONS. A&0X1. PT SLOW TO REACT, PT HAS RIGHT SIDED WEAKNESS NOTED. VSS. PT TO CT SCAN IMMEDIATELY, DR ROQUE AT BEDSIDE. Triage Nurses Notes Reviewed? yes HPI: Patient brought in by his daughter for evaluation of a headache and right-sided weakness. Patient received TPA on February 11 for her symptomatology was consistent with a left MCA infarct with right hemiparesis. His CAT scan, CT and she'll, carotid ultrasound and MRI all were normal. He had complete resolution of the symptoms after the TPA. Patient was in his usual state of health until this evening when the symptoms started. Daughter states that the symptoms started 10 minutes prior to arrival in the emergency department. Patient is not following any kind commands and just has a stare however it was "mildly he will look at you. Past History Travel History Traveled to [place] past 21 day No Medical History Any Pertinent Medical History? 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 BROTHER (hypertension and diabetes). FATHER ( at 44 from cancer). MOTHER Relation not specified for: FH: diabetes mellitus Hx Contributory? No Review of Systems Review of Systems Constitutional: Reports: see HPI. Physical Exam Physical Exam General Appearance: well developed/nourished, awake Head: atraumatic Eyes: Bilateral: PERRL, EOMI. Ears, Nose, Throat: normal ENT inspection, moist mucous membrane Neck: normal inspection, supple, full range of motion Respiratory: normal breath sounds, no respiratory distress, lungs clear Cardiovascular: regular rate/rhythm, normal peripheral pulses Gastrointestinal: normal bowel sounds, soft, non-tender Psychiatric: awake Cranial Nerves: SEE BELOW Comments: No pronator drift, no facial droop, no slurring of his words however the only word that he set out loud was hospital. His reflexes are 3+ symmetrically, he withdraws from painful stimuli. He moves all 4 extremities. He is not following commands. Core Measures CVA/TIA Diagnosis: Yes NIH Stroke Scale NIH Stroke Scale Response Value Level of Consciousness alert 0 LOC Questions answers one correctly 1 Best Gaze normal 0 Visual [place] no visual loss 0 Facial Paresis normal 0 Motor Arm - Left no drift 0 Motor Arm - Right no drift 0 Motor Leg - Left no drift 0 Motor Leg - Right no drift 0 Limb Ataxia no ataxia 0 Sensory normal 0 Best Language no aphasia 0 Dysarthria normal articulation 0 Extinction and Inattention no neglect 0 Total 1 Date Last Known Well: 02/24/18 Time Last Known Well: 2119 Symptom Start Date: 02/24/18 Symptom Start Time: 2119 tPA Risk/Benefit discussion I have discussed the risks, benefits, and alternatives of Alteplase treatment including: - If given promptly, can resolve or have major improvement in stroke symptoms. - Bleeding (hemorrhage) is the most common risk that can occur. - Bleeding may occur into the brain and cause~toll relief operator serious disability~ including - this is rare, affecting about 1% of patients. - Alternative treatments with proven benefit for patients with stroke include aspirin and care in a specialized unit where staff members pay careful attention to a variety of basic aspects of care. tPA given? No Reason tPA not given Medical Contraindication Swallow Evaluation Not Done Sepsis Present: No Sepsis Focused Exam Completed? No Progress Differential Diagnosis: drug intoxication, electrolyte imbalance, intracranial Hem., intracranial mass/tumor, migraine HARDING, seizure disorder, stroke, subarachnoid Hem., CONVERSION DISORDER Plan of Care: Orders Procedure Date/time Status Nothing by Mouth 02/25 B Active NIH Stroke Scale 02/26 12 Active Patient Data 02/25 11 Active ED Holding Orders 02/25 2352 Active Admit to inpatient 02/25 2352 Active Vital Signs 02/25 2352 Active Code Status 02/25 2352 Active Telemetry/Transportation Attendant 02/24 2200 Active URINALYSIS 02/24 2200 Active TROPONIN LEVEL 02/24 2200 Complete COMPREHENSIVE METABOLIC PANEL 02/24 2200 Complete CBC WITHOUT DIFFERENTIAL 02/24 2200 Complete EKG 02/24 2200 Active Laboratory Tests 02/24/182199: Anion Gap 9, Estimated GFR 59 L, BUN/Creatinine Ratio 13.8, Glucose 132 H, Calcium 9.0, Total Bilirubin 0.5, AST 24, ALT 38, Alkaline Phosphatase 71, Troponin I 0.31 *H, Total Protein 6.6, Albumin 3.9, Globulin 2.7, Albumin/ Globulin Ratio 1.4, CBC w Diff NO MAN DIFF REQ, RBC 4.89, MCV 90.5, MCH 30.3, MCHC 33.5, RDW 12.6, MPV 10.4, Gran % 68.2, Lymphocytes % 20.1 L, Monocytes % 9.9 H, Eosinophils % 1.6, Basophils % 0.2, Absolute Granulocytes 4.7, Absolute Lymphocytes 1.4, Absolute Monocytes 0.7 H, Absolute Eosinophils 0.1, Absolute Basophils 0 Diagnostic Imaging: Viewed by Me: CT Scan. Discussed w/RAD: CT Scan. Radiology Impression: PATIENT: JAKOB GARLAND PRESENT AGE: 48 PATIENT ACCOUNT NO: [id number] : 70 LOCATION: ER ORDERING PHYSICIAN: Luciano PEÑA SERVICE DATE: 02/24/18 EXAM TYPE : CAT - CT HEAD WO IV CONTRAST CT HEAD WITHOUT CONTRAST CLINICAL INFORMATION: Weakness and headache. COMPARISON: Brain MRI 02/12/[address] 02/11/2018. TECHNIQUE: Contiguous axial imaging was performed from the skull base to vertex without intravenous administration of contrast. FINDINGS: There is no intracranial hemorrhage, hydrocephalus, extra-axial surface collection, midline shift, or other herniation pattern. Gloria to white matter differentiation is diffusely maintained without evidence of an evolved acute territorial infarct. The basilar cisterns are preserved. No significant soft tissue abnormality. No acute osseous abnormality. The paranasal sinuses and the mastoid air cells are well-aerated. IMPRESSION: No acute intracranial abnormality. Stroke protocol discussed with Dr. Haas at 9:56 PM on 02/24/2018. DICTATED BY: Dario Garcia MD DATE/TIME DICTATED:02/24/182151 PUBLIC MESSAGE SERVICE SUPERVISOR:ELIZABET DATE/TIME TRANSCRIBED:02/24/182151 CONFIDENTIAL, DO NOT COPY WITHOUT APPROPRIATE AUTHORIZATION. <Electronically signed in Other Vendor System> SIGNED BY: Dario Garcia MD 02/24/182202, PATIENT: JAKOB GARALND PRESENT AGE: 48 PATIENT ACCOUNT NO: [id number] : 70 LOCATION: ER ORDERING PHYSICIAN: Juan Roque MD SERVICE DATE: 02/24/18 EXAM TYPE: CAT - CT ABD & PELVIS W IV CONTRAST EXAMINATION: CT ABDOMEN AND PELVIS WITH CONTRAST CLINICAL INFORMATION: Right lower quadrant abdominal pain. COMPARISON: CT abdomen and pelvis of 07/26/2016 and 12/01/2013. TECHNIQUE: Multidetector volumetric imaging was performed of the abdomen and pelvis following IV administration of 95 mL of Optiray 320 intravenous contrast. Sagittal and coronal reformatted images were obtained on the technologist's workstation. DLP: 755.22 mGy-cm FINDINGS: LUNG BASES: The visualized lung bases are unremarkable. LIVER, GALLBLADDER, AND BILIARY TREE: The liver is normal in size, shape, and attenuation. A tiny low-attenuation in hepatic segment 8 ( series 2 image 16) is stable since previous CT of 07/26/2016 and statistically may represent a cyst or hemangioma. No biliary ductal dilatation. The gallbladder is unremarkable with no evidence of radiopaque gallstones, gallbladder wall thickening, or obvious pericholecystic inflammatory changes. PANCREAS: Unremarkable. SPLEEN: Unremarkable. ADRENAL GLANDS: Unremarkable. KIDNEYS AND URETERS: The right kidney is surgically absent. The left kidney is normal in size, shape, and attenuation. No hydronephrosis, hydroureter, or calculi seen. No perinephric stranding. BLADDER: Unremarkable. GASTROINTESTINAL TRACT: The small and large bowel are unremarkable. The appendix is unremarkable. ABDOMINAL WALL: No significant hernia is appreciated. LYMPH NODES: Normal. VASCULAR: Unremarkable. PELVIC VISCERA: Unremarkable. OSSEOUS STRUCTURES: Unremarkable. IMPRESSION: 1. Normal appendix. 2. No acute or other significant abnormality is identified to explain patient's symptoms. 3. Stable postsurgical changes of right nephrectomy. DICTATED BY: Arvind Andres MD DATE/TIME DICTATED:01/06 PUBLIC MESSAGE SERVICE SUPERVISOR:ELIZABET DATE/TIME TRANSCRIBED:02/24/182334 CONFIDENTIAL, DO NOT COPY WITHOUT APPROPRIATE AUTHORIZATION. <Electronically signed in Other Vendor System> SIGNED BY: Arvind Andres MD 02/25/18 0023 Initial ED EKG: NSR, nonspecific ST T wave chg Prior EKG: unchanged Rhythm Strip: normal sinus rhythm Comments: D/W DR. CASEY, DISCUSSED PRIOR WORK UP AND NONSPECIFIC FINDINGS, NO TPA AT THIS POINT. POSSIBLE CONVERSION DISORDER, POSSIBLE DISORDER. Patient is still nonverbal and not really responding to commands however now he is wincing and grabbing his right lower quadrant. His states that he attacks occur at 740 this evening stating that he was getting a headache and that his abdomen hurt. Departure Departure Disposition: STILL A PATIENT Condition: Guarded Clinical Impression Primary Impression: CVA (cerebral vascular accident) Secondary Impressions: Elevated troponin, Lower abdominal pain, unspecified Referrals: Gisel Perez MD (PCP/Family) Departure Forms: Customer Survey General Discharge Information Admission Note Spoke With: Swapnil Clemens MD Documentation of Exam: Documentation of any treatments & extenuating circumstances including Concerns Regarding Discharge (functional status, medication knowledge or non-compliance, living conditions, etc.) that warrant an admission rather than observation: [ TELEMONITORING, NEUROLOGY CONSULT, EEG, MRI]
--- NOTE | 2018-02-24 22:03 | CT SCAN REPORT ---
CT HEAD WITHOUT CONTRAST CLINICAL INFORMATION: Weakness and headache. COMPARISON: Brain MRI 02/12/[address] 02/11/2018. TECHNIQUE: Contiguous axial imaging was performed from the skull base to vertex without intravenous administration of contrast. FINDINGS: There is no intracranial hemorrhage, hydrocephalus, extra-axial surface collection, midline shift, or other herniation pattern. Gloria to white matter differentiation is diffusely maintained without evidence of an evolved acute territorial infarct. The basilar cisterns are preserved. No significant soft tissue abnormality. No acute osseous abnormality. The paranasal sinuses and the mastoid air cells are well-aerated. IMPRESSION: No acute intracranial abnormality. Stroke protocol discussed with Dr. Haas at 9:56 PM on 02/24/2018.
[2018-02-24 22:20] LABS: ABSOLUTE BASOPHIL COUNT 0 /CUMM (0.0-0.2); ABSOLUTE EOSINOPHIL COUNT 0.1 /CUMM (0.0-0.7); ABSOLUTE GRANULOCYTE CT 4.7 /CUMM (1.4-6.5); ABSOLUTE LYMPH COUNT 1.4 /CUMM (1.2-3.4); ABSOLUTE MONOCYTE COUNT 0.7 /CUMM (0.10-0.60); BASOPHIL % 0.2 % (0.0-2.0); EOSINOPHIL % 1.6 % (0-5); GRANULOCYTE % 68.2 % (42.2-75.2); HEMATOCRIT 44.3 % (42-52); MEAN CORPUSCULAR HGB 30.3 PG (27.0-31.0); MEAN CORPUSCULAR HGB CONC 33.5 G/DL (33.0-37.0); MEAN CORPUSCULAR VOLUME 90.5 FL (80.0-94.0); MEAN PLATELET VOLUME 10.4 FL (7.4-10.4); PLATELET COUNT 159 /CUMM (130-400); RBC DISTRIBUTION WIDTH 12.6 % (11.5-14.5); RED BLOOD CELL CT 4.89 /CUMM (4.70-6.10); WHITE BLOOD CELL COUNT 6.9 /CUMM (4.8-10.8)
--- NOTE | 2018-02-24 23:13 | History & Physical ---
Dianne Goff 02/24/18 8756: General Information and HPI MD Statement: I have seen and personally examined JAKOB GARLAND BIGG and documented this H&P. The patient is a 48 year old M who presented with a patient stated chief complaint of stroke. Source of Information: patient History of Present Illness: Patient is a 48 year old male with past medical history of hypertension, hyperlipidemia, status post cardiac cath /2017, who presented to ED for headache, slurred speech and weakness at home. History provided by patients at bedside on assessment and small conversation with nevin who was present with patient at the time of incidence given patients mute status. Of note, patient recently admitted on 02/11/18 and received TPA for symptoms consistent with left MCA infarct with right hemiparesis. Patient had complete resolution of symptomss after TPA at that time with normal imaging. Patient was admitted to ICU at that time for monitoring after tPA. MRI 24 hours after tPA did not demonstrated signs of acute/chronic infarct or ICH and patient was dischargged home on aspirin and statin. 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 He has noticed increased headaches described to be "migraines" by his . Patient seen to hold his hand in his head more often. Otherwise, he was in his usual state of health until dinner time on night of admission around 1930 he stood up from chair, dropped phone out of his right hand, stood against wall and was unable to speak. Patients daughter stated he was extremely weak at this time and was non-verbal and she brought him to the ED around 2100. Patient reported to have abdominal pain today as well but was able to swallow/eat dinner fine. Patient quit smoking in 2003 and noted to be an occasional drinker. Patient did not follow up with neurology since recent admission and has not seen his nutrition representative recently, although has a [employer] recorder. Allergies/Medications Allergies: Coded Allergies: Penicillins (ITCH 02/11/18) poison joelle extract (LIPS SWELL, HIVES, BREATHING IS NOT AFFECTED PER PT ) poison oak extract (LIPS SWELL, HIVES, BREATHING NOT AFFECTED PER PT 02/11/18) poison sumac extract (LIPS SWELL, HIVES, BREATHING NOT AFFECTED PER PT 02/11/18) Home Med list Aspirin (Aspirin*) 81 MG TAB.CHEW 81 MG PO DAILY [facility] . Atorvastatin Calcium 80 MG TABLET 80 MG PO 1700 [facility] . Pantoprazole Sodium 40 MG TABLET. 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 BROTHER (hypertension and diabetes). FATHER ( at 44 from cancer). MOTHER Relation not specified for: FH: diabetes mellitus Psychosocial History Who Do You Live With? spouse Services at Home: None Primary Language: South Korean Functional Ability ADLs Independent: dressing, eating, toileting, bathing. Ambulation: independent IADLs Independent: shopping, housework, finances, food prep, telephone, transportation , medication admin. Review of Systems Review of Systems Constitutional: Denies: see HPI. Exam & Diagnostic Data Last 24 Hrs of Vital Signs/I&O Vital Signs Date Time Temp Pulse Resp B/P B/P Pulse O2 O2 Flow FiO2 Mean Ox Delivery Rate 02/24 2251 67 16 124/78 97 02/24 2137 97.6 60 18 144/86 98 Room Air Intake & Output 02/25 0800 02/25 0000 02/24 1600 Intake Total Output Total Balance Patient 229 lb Weight Weight Reported by Patient Measurement Method Physical Exam General Appearance Alert, Patient non-verbal; able to nod yes/no at times Skin No Rashes, No Breakdown HEENT Atraumatic, PERRLA, EOMI, Mucous Membr. moist/pink Neck Supple, No JVD Cardiovascular Regular Rate, Normal S1, Normal S2 Lungs Clear to Auscultation, Normal Air Movement Abdomen Normal Bowel Sounds, Pain on palpation of right upper/lower quadrant Neurological Gait unassessed Non-verbal/mute Right sided strength 2/5 b/l upper/ lower ext Left sided strength 3/5 b/l upper/lower ex Sensation decreased right upper extremity compared to left, however intact Facial Nerve: unable to wrinkle forehead, puff out cheeks Reflexes 3+ bilaterally Extremities No Clubbing, No Cyanosis, No Edema, Normal Pulses, left foot fracture/boot in place Vascular Normal Pulses, Pulses Symmetrical Last 24 Hrs of Labs/Abel: Laboratory Tests 02/24/18 2200: Anion Gap 9, Estimated GFR 59 L, BUN/Creatinine Ratio 13.8, Glucose 132 H, Calcium 9.0, Total Bilirubin 0.5, AST 24, ALT 38, Alkaline Phosphatase 71, Troponin I 0.31 *H, Total Protein 6.6, Albumin 3.9, Globulin 2.7, Albumin/ Globulin Ratio 1.4, CBC w Diff NO MAN DIFF REQ, RBC 4.89, MCV 90.5, MCH 30.3, MCHC 33.5, RDW 12.6, MPV 10.4, Gran % 68.2, Lymphocytes % 20.1 L, Monocytes % 9.9 H, Eosinophils % 1.6, Basophils % 0.2, Absolute Granulocytes 4.7, Absolute Lymphocytes 1.4, Absolute Monocytes 0.7 H, Absolute Eosinophils 0.1, Absolute Basophils 0 Assessment/Plan Assessment: Patient is a 48 year old male with PMH of previous TIA s/p tPA and ICU admission admitted on 02/11/18 and received TPA for symptoms consistent with left MCA infarct with right hemiparesis, status post negative cardiac cath X 3 most recent in 2018, HTN, HLD who presented to ED found to have increasing headache, slurred speach and episode of weakness at dinner on night of admission. Patients CT head on admission negative for any acute intracranial pathology. Previous ECHO EF of >55%. Patient mute on assessment with NIH stroke scale measured to be 15. Patient unable to speak but slow to follow some commands. Given recent TIA/ tPA administration 2 weeks ago, there is a concern for evolving ischemic infarct that warrants q2 neurology checks. Will monitor on telemetry for now. EMERGENCY DEPARTMENT: NIH Scale: 15 Vitals: 97.6, 60, 18, 144/86, 98% RA Labs: WBC: 6.9, Hgb: 14.9, Hct: 44.3, Plt: 159 Chemistry: Na: 138, K+ 3.9, Cl 103, CO2 26, BUN 18, Cr: 1.3, GFR 59 Troponin: 0.31 EKG: Sinus Rythm , possible T wave inversion V1, flattening in lead III; no previous EKG to compare HEAD CT: No acute intracranial abnormality. CT Abd/Pelvis: Normal appendix.No acute or other significant abnormality is identified to explain patient's symptoms. PROBLEM LIST: 1. Evolving Stroke s/p tPA 02/11/18 2. Elevated Troponins (H/O cath x3) 3. Abdominal Pain (negative CT abd/pelvis) PLAN: * Monitor on telemetry * q2 Neurology checks * Neurology Consult in AM (ER spoke with ) * MRI Brain + EEG * Serial EKG/Troponin until downtrend (intitial troponin 0.31) - elevated trops on previous * Continue ASA + Statin once formal swallow eval; Rectal ASA 325 suppository * PT/OT/Speech * Fall/Aspiration Precaution * Formal Swallow Evaluation; NPO for now * IV protonix given abdominal pain likely 2/2 to NSAID use for recent headaches Code Status: Full Code DVT PPx: Heparin Sc Diet: NPO until formal evaluation As Ranked By This Provider Problem List: 1. Headache 2. Troponin level elevated 3. CVA (cerebral vascular accident) 4. Abdominal pain Core Measures/Misc (04/07) Acute Coronary Syndrome ACS Diagnosis: No Congestive Heart Failure Congestive Heart Failure Diagnosis No Cerebrovascular Accident CVA/TIA Diagnosis: Yes NIH Stroke Scale: Total 15 Date Last Known Well: 02/24/18 Time Last Known Well: 1900 Symptom Start Date: 02/24/18 Symptom Start Time: 1999 tPA Risk/Benefit discussion I have discussed the risks, benefits, and alternatives of Alteplase treatment including: - If given promptly, can resolve or have major improvement in stroke symptoms. - Bleeding (hemorrhage) is the most common risk that can occur. - Bleeding may occur into the brain and cause~long-term serious disability~ including - this is rare, affecting about 1% of patients. - Alternative treatments with proven benefit for patients with stroke include aspirin and care in a specialized unit where staff members pay careful attention to a variety of basic aspects of care. tPA given? No Reason tPA not ordered Medical Contraindication Swallow Evaluation Not Done Current/Past Hx AFib/AFlutter No VTE (View Protocol) VTE Risk Factors Age>40 No Mechanical VTE Prophylaxis d/t N/A MechProphylax Ordered No VTE Pharm Prophylaxis d/t NA PharmProphylax ordered Sepsis (View protocol) Sepsis Present: No If YES complete Sepsis Event Note If YES complete Sepsis Event Note Vilma Foy 02/25/18 0050: Core Measures/Misc (04/07) Sepsis (View protocol) If YES complete Sepsis Event Note If YES complete Sepsis Event Note Resident Review Statement Resident Statement: examined this patient, discussed with video editing intern, agreed with video editing intern, discussed with family Other Findings: Patient is 48-year-old male with past medical history of hypertension, hyperlipidemia, cardiac cath 3, last one in 2018, recent ischemic stroke 2 weeks ago for which he received TPA in ICU, was brought in by family after they found him to be mute and weak on the right side. In ER, patient remains mute and most of the history was obtained from and his daughter who witnessed this episode. 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 The daughter immediately transferred him to a cart and brought him to [place] ER. was present at bedside, stated that patient has been having headaches since past 1 week, last week he came back from work around 3 PM, and reported of severe headache when he would hold his head and say that he feels is having a migraine attack. He took [id number] medicine for the headache. also reported that he has been sleeping more since past week. No weakness was noted earlier and patient was fine when he got back from his work today. In ER, why set the patient indicated to her that he is having abdominal pain. Of note, patient had been eating and drinking well. Labs and vitals as above. CAT scan head no acute changes Problem list #1. Rule out Evolving Ischemic Stroke, NIH 15 on admission #2. Chronic Elevated Troponins, with multiple negative cardiac cath, questionable myopericarditis #3. Abdominal pain possibly due to NSAID use/peptic ulcer disease. #4. History of hypertension #5. History of renal cell carcinoma with prior nephrectomy #6. History of cervical stenosis with prior fusion Assessment and plan We'll admit the patient to telemetry with a concern of evolving ischemic infarct , patient is a high risk as he had stroke 2 weeks ago and is status post TPA, CT head ruled out any hemorrhage, Q2 neuro checks, neurology consult in a.m. ER already spoke with . Will obtain EEG. For elevated troponins, will trend another set with EKG. His echo from January 2015 was normal and we'll continue to monitor for any chest pain. Physical therapy/occupational therapy/swallow evaluation Was given a one-time aspirin suppository and IV Protonix. His abdominal pain could be due to peptic ulcer second to possible NSAID use for his headache and last week. Can restart his home meds including aspirin, statin, pantoprazole, paroxetine if he passes swallow eval in a.m. we'll follow up UA. DVT prophylaxis according his heparin Patient is full code. Swapnil Clemens MD 02/25/18 0452: Core Measures/Misc (04/07) Sepsis (View protocol) If YES complete Sepsis Event Note If YES complete Sepsis Event Note Attending MD Review Statement Attending Statement Attending MD Statement: examined this patient, discuss w/resident/PA/JACKERMAN, agreed w/resident/PA/JACKERMAN Attending Assessment/Plan: Patient is seen and examined independently by me. Care plan discussed with medical office technologist and resident. I agree with the physical exam findings and plan of care as outlined above with the following changes and additions. 48 yo male with history of HTN, HLD, chronic elevated troponin s/p multiple cardiac cath with last one about 6 months ago which showed no significant stenosis, last admitted 02/11/2018 with right sided weakness c/w left MCA and got tPA. CT head and MRI brain at that time showed no acute infarct and discharged home on ASA and statin. Tonight at about 7:30 pm, he had sudden onset of right sided weakness and aphasia. His phone dropped from his right hand during this episode. He also has RUQ abdominal pain but tolerated his meal today. He is now aphasia. He has right sided weakness on exam. 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 kicking his knee against my hand ). However when asked to raise his extremities against gravity individually, he is able to hold all his extremities individually for at least 20 sec. He has good gag reflex. Troponin 0.31. EKG shows NSR at [address]-T changes. CT head shows no acute intracranial abnormality. CT abdomen and pelvis shows right nephrectomy with no acute abnormality. Patient is admitted to [facility] for right sided weakness with aphasia, r/o CVA. ED discussed with Neuro and thought there is a component of conversion disorder and did not give tPA. Continue ASA and statin. Check EEG, MRI brain. Neuro consult. PT/OT/speech therapy. Patient has troponin is at baseline with his chronic troponin elevation. Keep on cardiac monitoring and check serial troponin/EKG. Signed: Swapnil Clemens MD FACP
[2018-02-25] VITALS (8 sets, daily range): BP systolic 90–122; BP diastolic 50–82
--- NOTE | 2018-02-25 00:23 | CT SCAN REPORT ---
EXAMINATION: CT ABDOMEN AND PELVIS WITH CONTRAST CLINICAL INFORMATION: Right lower quadrant abdominal pain. COMPARISON: CT abdomen and pelvis of 07/26/2016 and 12/01/2013. TECHNIQUE: Multidetector volumetric imaging was performed of the abdomen and pelvis following IV administration of 95 mL of Optiray 320 intravenous contrast. Sagittal and coronal reformatted images were obtained on the technologist's workstation. DLP: 755.22 mGy-cm FINDINGS: LUNG BASES: The visualized lung bases are unremarkable. LIVER, GALLBLADDER, AND BILIARY TREE: The liver is normal in size, shape, and attenuation. A tiny low-attenuation in hepatic segment 8 (series 2 image 16) is stable since previous CT of 07/26/2016 and statistically may represent a cyst or hemangioma. No biliary ductal dilatation. The gallbladder is unremarkable with no evidence of radiopaque gallstones, gallbladder wall thickening, or obvious pericholecystic inflammatory changes. PANCREAS: Unremarkable. SPLEEN: Unremarkable. ADRENAL GLANDS: Unremarkable. KIDNEYS AND URETERS: The right kidney is surgically absent. The left kidney is normal in size, shape, and attenuation. No hydronephrosis, hydroureter, or calculi seen. No perinephric stranding. BLADDER: Unremarkable. GASTROINTESTINAL TRACT: The small and large bowel are unremarkable. The appendix is unremarkable. ABDOMINAL WALL: No significant hernia is appreciated. LYMPH NODES: Normal. VASCULAR: Unremarkable. PELVIC VISCERA: Unremarkable. OSSEOUS STRUCTURES: Unremarkable. IMPRESSION: 1. Normal appendix. 2. No acute or other significant abnormality is identified to explain patient's symptoms. 3. Stable postsurgical changes of right nephrectomy.
--- NOTE | 2018-02-25 07:12 | PN- Housestaff ---
Shaquille Adair 02/25/18711: Subjective Follow-up For: R sided weakness Possible TIA Tele-Events Since Last Visit: Normal sinus rhythm, with sinus bradycardia with rate 48-50 Subjective: Patient seen resting on the bed, using his smart phone. He is communicating by nods and shaking his head, is able to speak very softly with prompting and reports that it hurts to speak. He endorses headache, and right sided weakness that continues, but denies loss of sensation. Review of Systems Constitutional: Reports: weakness. Denies: chills, diaphoresis, fever. Objective Last 24 Hrs of Vital Signs/I&O Vital Signs Date Time Temp Pulse Resp B/P B/P Pulse O2 O2 Flow FiO2 Mean Ox Delivery Rate 02/25 0655 97.9 64 18 100/50 99 Room Air 02/25 0449 98.0 52 16 90/56 95 Room Air 02/25 0234 97.3 52 18 108/82 95 Room Air 02/25 0207 95 Room Air 02/25 0045 98.4 57 16 119/74 98 Room Air 02/24 2251 67 16 124/78 97 02/24 2137 97.6 60 18 144/86 98 Room Air Intake & Output 02/25 0800 02/25 0000 02/24 1600 Intake Total Output Total 350 Balance -350 Output, Urine 350 Patient 100.698 kg 103.873 kg Weight Weight Reported by Patient Reported by Patient Measurement Method Physical Exam General Appearance: Alert, Cooperative, No Acute Distress HEENT: PERRLA Cardiovascular: Regular Rate, Normal S1, Normal S2, No Murmurs Lungs: Clear to Auscultation, Normal Air Movement Abdomen: Normal Bowel Sounds, Soft, No Tenderness Neurological: Sensation Intact, R sided weakness, 4/5 RUE and RLE. Patient speaking softly Current Medications: Current Medications Sig/Elian Start time Last Medication Dose Route Stop Time Status Admin Acetaminophen 0 .STK-MED ONE 02/24 2332 DC IV Acetaminophen 1,000 MG ONCE ONE 02/24 2300 DC 02/24 N/A 1 UNIT IV 02/24 2314 2341 Aspirin 300 MG ONCE ONE 02/25 0115 DC LA 02/25 0116 Pantoprazole Sodium 0 .STK-MED ONE 02/25 0132 DC IV Pantoprazole Sodium 40 MG DAILY 02/25 011 AC 02/25 IV 0133 Last 24 Hrs of Lab/Abel Results Last 24 Hrs of Labs/Mics: Laboratory Tests 02/25/18 0639: Troponin I Pending 02/24/18 2200: Anion Gap 9, Estimated GFR 59 L, BUN/Creatinine Ratio 13.8, Glucose 132 H, Calcium 9.0, Total Bilirubin 0.5, AST 24, ALT 38, Alkaline Phosphatase 71, Troponin I 0.31 *H, Total Protein 6.6, Albumin 3.9, Globulin 2.7, Albumin/ Globulin Ratio 1.4, CBC w Diff NO MAN DIFF REQ, RBC 4.89, MCV 90.5, MCH 30.3, MCHC 33.5, RDW 12.6, MPV 10.4, Gran % 68.2, Lymphocytes % 20.1 L, Monocytes % 9.9 H, Eosinophils % 1.6, Basophils % 0.2, Absolute Granulocytes 4.7, Absolute Lymphocytes 1.4, Absolute Monocytes 0.7 H, Absolute Eosinophils 0.1, Absolute Basophils 0 Assessment/Plan Assessment: Patient is a 48 year old male with PMH of previous TIA s/p tPA and ICU admission admitted on 02/11/18 and received TPA for symptoms consistent with left MCA infarct with right hemiparesis, status post negative cardiac cath X 3 most recent in 2018, HTN, HLD who presented to ED found to have increasing headache, slurred speach and episode of weakness at dinner on night of admission. Patients CT head on admission negative for any acute intracranial pathology. HEAD CT: No acute intracranial abnormality. CT Abd/Pelvis: Normal appendix.No acute or other significant abnormality is identified to explain patient's symptoms. Troponins peaked at 0.31, trended down to 0.29 Swallow eval recommends regular diet with thin liquids. PROBLEM LIST: 1. Evolving Stroke s/p tPA 02/11/18 2. Elevated Troponins (H/O cath x3) 3. Abdominal Pain (negative CT abd/pelvis) PLAN: * Monitor on telemetry * Q2 Neurology checks * Follow-up neurology consult (ER spoke with ) * Follow-up MRI Brain + EEG * Serial EKG/Troponin until downtrend (intitial troponin 0.31) - elevated trops on previous * Fall/Aspiration Precaution * IV protonix given abdominal pain likely 2/2 to NSAID use for recent headaches * Cardiology work-up for possible source of embolization, recent work-up for historically elevated troponin negative Code Status: Full Code DVT PPx: Heparin Sc Diet: NPO until formal evaluation Problem List: 1. Lower abdominal pain, unspecified 2. Troponin I above reference range 3. TIA (transient ischemic attack) Pain Ratin Pain Location: Headache, R inguinal region Pain Goal: Pain 4 or less Pain Plan: per pathway Tomorrow's Labs & Rationales: ZUHAIR Osullivan MDSal 02/25/18 1353: Attending MD Review Statement Attending Statement Attending MD Statement: examined this patient, discuss w/resident/PA/[employer]ER, agreed w/resident/PA/[employer]ER, reviewed EMR data (avail), discussed with nursing, discussed with case mgmt, amended to note Attending Assessment/Plan: Patient seen and examined. Resting comfortably not in any acute distress. No issues overnight reported by nursing staff. No events on telemetry monitoring. This morning he feels that his strength is back to baseline. His speech is intact with no slurring. He does have generalized weakness but with no focal deficit strength is 4/5 bilateral upper and lower extremities. Patient reports that following his stroke last month he was weak on the right side. He did report that the weakness had significantly improved. He presented with complaints of recurrence of weakness on the right side as well as slurred speech. It is unclear why his old stroke symptoms are exacerbated. Head CT shows evidence of a new stroke. His blood pressure was stable at least at that time he was evaluated in the emergency room. He has had no events on telemetry monitoring. He does not appear volume depleted. Incidentally noted is an elevated troponin level however Levels continue to trend downwards very slowly from peak levels about 3 years ago. Denies any chest pain or shortness of breath. No ischemic changes noted on EKG. Recommendations: -Cardiology consultation appreciated. Troponin elevations are chronic with no evidence of ischemia at this point. -Follow-up with interrogation of loop recorder to ensure he is does not have any paroxysmal arrhythmia. -Obtain repeat echocardiogram as recommended by the cardiology service with bubble study to rule out any intra-atrial shunts. -He has no evidence of lower extremity swelling or pain. Deep vein thrombosis appears less likely at present. Lower extremity Dopplers would be indicated only if bubble study is positive for a shunt. -It is unclear if the cardiology service wants to obtain a BRIGITTE on this patient. Recommend following up results of the repeat transthoracic echocardiogram with bubble study first.
--- NOTE | 2018-02-25 12:06 | Cons- Cardiology ---
General Information and HPI Consulting Request Date of Consult: 02/25/18 Requested By: Sal Osullivan MD Reason for Consult: elevated troponin Source of Information: patient, old records Exam Limitations: no limitations History of Present Illness: This is a 48-year-old male with a past medical history of hypertension, nicotine dependence, sleep apnea, renal cell carcinoma with prior nephrectomy, hepatitis C treated with interferon, recurrent myopericarditis with chronic troponin elevation and multiple negative cardiac catheterizations, cervical stenosis with prior fusion, and recurrent syncope status post implantable loop recorder. Patient has a recent admission to [facility] January 2018 for CVA of the left MCA status post TPA. Patient presents again today with sudden onset headache, slurred speech, and right-sided weakness. The symptoms have now resolved. Patient denies chest pain, palpitations, dyspnea at rest or exertion, PND/ orthopnea, lower extremity swelling. Allergies/Medications Allergies: Coded Allergies: Penicillins (ITCH 02/11/18) poison joelle extract (LIPS SWELL, HIVES, BREATHING IS NOT AFFECTED PER PT ) poison oak extract (LIPS SWELL, HIVES, BREATHING NOT AFFECTED PER PT 02/11/18) poison sumac extract (LIPS SWELL, HIVES, BREATHING NOT AFFECTED PER PT 02/11/18) Home Med List: Aspirin (Aspirin*) 81 MG TAB.CHEW 81 MG PO DAILY [facility] . Atorvastatin Calcium 80 MG TABLET 80 MG PO 1700 [facility] . Pantoprazole Sodium 40 MG TABLET.DR 1 TAB PO DAILY [facility] (Reported) Paroxetine HCl 30 MG TABLET 1 TAB PO [facility] (Reported) Current Medications: Current Medications Sig/Elian Start time Last Medication Dose Route Stop Time Status Admin Acetaminophen 0 .STK-MED ONE 02/24 2332 DC IV Acetaminophen 1,000 MG ONCE ONE 02/24 2300 DC 02/24 N/A 1 UNIT IV 02/24 2314 2341 Aspirin 300 MG ONCE ONE 02/25 0115 DC MT 02/25 0116 Pantoprazole Sodium 0 .STK-MED ONE 02/25 0132 DC IV Pantoprazole Sodium 40 MG DAILY 02/25 011 AC 02/25 IV 0133 Review of Systems Review of Systems: As per HPI. Otherwise a 10 point review of systems is negative. 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 BROTHER (hypertension and diabetes). FATHER ( at 44 from cancer). MOTHER Relation not specified for: FH: diabetes mellitus Psychosocial History Where Do You Live? Home Who Do You Live With? spouse Services at Home: None Primary Language: Montserratian Smoking Status: Former Smoker ETOH Use: occasional use Illicit Drug Use: denies illicit drug use Functional Ability ADLs Independent: dressing, eating, toileting, bathing. Ambulation: independent IADLs Independent: shopping, housework, finances, food prep, telephone, transportation , medication admin. Exam & Diagnostic Data Vital Signs and I&O Vital Signs Date Time Temp Pulse Resp B/P B/P Pulse O2 O2 Flow FiO2 Mean Ox Delivery Rate 02/25 1052 98.0 64 20 112/64 97 Room Air 02/25 0837 97.9 54 18 110/60 95 Room Air 02/25 0655 97.9 64 18 100/50 99 Room Air 02/25 0449 98.0 52 16 90/56 95 Room Air 02/25 0234 97.3 52 18 108/82 95 Room Air 02/25 0207 95 Room Air 02/25 0045 98.4 57 16 119/74 98 Room Air 02/24 2251 67 16 124/78 97 02/24 2137 97.6 60 18 144/86 98 Room Air Intake & Output 02/25 1600 02/25 0800 02/25 0000 02/24 1600 02/24 0800 02/24 0000 Intake Total Output Total 350 Balance -350 Output, Urine 350 Patient 100.698 kg 103.873 kg Weight Weight Reported by Patient Reported by Patient Measurement Method Physical Exam: General: no apparent distress HEENT: NCAT, NO JVD Heart: s1s2, RRR, no MRG Lungs: CTA b/l Abd: soft, nt Ext: no peripheral edema, LLE ankle boot in place Labs/Abel Results: Laboratory Tests 02/25 02/24 0639 2200 Chemistry Sodium (137 - 145 mmol/L) 138 Potassium (3.5 - 5.1 mmol/L) 3.9 Chloride (98 - 107 mmol/L) 103 Carbon Dioxide (22 - 30 mmol/L) 26 Anion Gap (5 - 16) 9 BUN (9 - 20 mg/dL) 18 Creatinine (0.7 - 1.2 mg/dL) 1.3 H Estimated GFR (>60 ml/min) 59 L BUN/Creatinine Ratio (7 - 25 %) 13.8 Glucose (65 - 99 mg/dL) 132 H Calcium (8.4 - 10.2 mg/dL) 9.0 Total Bilirubin (0.2 - 1.3 mg/dL) 0.5 AST (17 - 59 U/L) 24 ALT (21 - 72 U/L) 38 Alkaline Phosphatase (< 127 U/L) 71 Troponin I (<0.11 ng/ml) 0.29 *H 0.31 *H Total Protein (6.3 - 8.2 g/dL) 6.6 Albumin (3.5 - 5.0 g/dL) 3.9 Globulin (1.9 - 4.2 gm/dL) 2.7 Albumin/Globulin Ratio (1.1 - 2.2 %) 1.4 Hematology CBC w Diff NO MAN DIFF REQ WBC (4.8 - 10.8 /CUMM) 6.9 RBC (4.70 - 6.10 /CUMM) 4.89 Hgb (14.0 - 18.0 G/DL) 14.9 Hct (42 - 52 %) 44.3 MCV (80.0 - 94.0 FL) 90.5 MCH (27.0 - 31.0 PG) 30.3 MCHC (33.0 - 37.0 G/DL) 33.5 RDW (11.5 - 14.5 %) 12.6 Plt Count (130 - 400 /CUMM) 159 MPV (7.4 - 10.4 FL) 10.4 Gran % (42.2 - 75.2 %) 68.2 Lymphocytes % (20.5 - 51.1 %) 20.1 L Monocytes % (1.7 - 9.3 %) 9.9 H Eosinophils % (0 - 5 %) 1.6 Basophils % (0.0 - 2.0 %) 0.2 Absolute Granulocytes (1.4 - 6.5 /CUMM) 4.7 Absolute Lymphocytes (1.2 - 3.4 /CUMM) 1.4 Absolute Monocytes (0.10 - 0.60 /CUMM) 0.7 H Absolute Eosinophils (0.0 - 0.7 /CUMM) 0.1 Absolute Basophils (0.0 - 0.2 /CUMM) 0 Diagnostic Data EKG Results Normal sinus rhythm, no ST/T-wave normalities Other Results Head CT: No acute intracranial abnormality. TTE 02/12/2018: Normal global left ventricular size, wall thickness, systolic function with no obvious regional wall motion abnormalities. Left ventricular ejection fraction is estimated at > 55 %. Normal right ventricular size and function. No pericardial effusion. Telemetry personally reviewed: Normal sinus rhythm Assessment/Plan Assessment/Plan 1. Likely TIA 2. History of MCA CVA s/p tpa infusion 3. History of recurrence myopericarditis with chronic troponin elevation and multiple negative cardiac catheterizations 4. History of recurrent syncope status post implantable loop recorder with no prior events detected 5. History of hypertension 6. History of renal cell carcinoma with prior nephrectomy 7. History of cervical stenosis with prior fusion 8. Sinus bradycardia Patient presented with likely TIA, neurological symptoms have resolved. Mildly elevated troponin in the absence of chest pain and EKG changes in this patient who has a history of repeatedly mildly elevated troponin is likely consistent with his chronic troponin elevations. No indication for repeat cardiac catheterization at this time. BP is not elevated. His recurrent CVAs is concerning. Recommend neurological consultation. Would obtain repeat transthoracic echocardiogram with bubble study to evaluate for any interatrial shunts. Can consider lower extremity Doppler if there is concern for paradoxical emboli. Please call [employer] to interrogate patient's loop recorder to look for any atrial fibrillation or flutter. Continue with aspirin and statin. Given the patient's recurrent CVA, a BRIGITTE may be indicated. Consult Acknowledgment - Thank you for your consult request.
--- NOTE | 2018-02-25 15:15 | ULTRASOUND REPORT ---
EXAMINATION: US TRIPLEX OF LOWER EXTREMITIES, BILATERAL CLINICAL INFORMATION: There is a 48-year-old male with recent immobilization. Leg swelling. Diabetes. Possible deep vein thrombosis. COMPARISON: None TECHNIQUE: Color-flow triplex imaging with spectral analysis and compression Doppler were performed on the lower extremities. FINDINGS: Respiratory variation, normal compression and augmented flow are noted throughout the lower extremities. The visualized common femoral vein, superficial femoral vein, profunda femoral vein, popliteal vein and midcalf peroneal and posterior tibial venous segments show no evidence of deep venous thrombosis. There is no Mtz's cyst. IMPRESSION: No evidence of deep venous thrombosis involving the bilateral lower extremities.
--- NOTE | 2018-02-26 05:47 | PN- Housestaff ---
Shaquille Adair 02/26/18 0546: Subjective Follow-up For: R sided weakness Possible TIA Tele-Events Since Last Visit: Sinus bradycardia overnight, with rates from 48-56 Subjective: Patient seen resting comfortably in the bed. He reported feeling better from yesterday, able to ambulate independently. Denies headache, chest pain, shortness of breath, dizziness. States that his weakness is improving, but still limiting him. Patient went for MRI brain and EEG this morning, states that he was able to ambulate well downstairs. Review of Systems Constitutional: Denies: chills, diaphoresis, fever, malaise. Objective Last 24 Hrs of Vital Signs/I&O Vital Signs Date Time Temp Pulse Resp B/P B/P Pulse O2 O2 Flow FiO2 Mean Ox Delivery Rate 02/26 0633 98.6 59 20 110/68 94 Room Air 02/25 2133 98.6 70 20 116/80 96 Room Air 02/25 1500 98.4 60 20 122/82 97 Room Air 02/25 1230 98.0 53 20 120/68 95 Room Air 02/25 1052 98.0 64 20 112/64 97 Room Air 02/25 0837 97.9 54 18 110/60 95 Room Air 02/25 0655 97.9 64 18 100/50 99 Room Air Intake & Output 02/26 0800 02/26 0000 02/25 1600 Intake Total 240 240 Output Total 300 600 Balance -60 -360 Intake, Oral 240 240 Number 0 Bowel Movements Output, Urine 300 600 Patient 103.022 kg Weight Weight Bed scale Measurement Method Physical Exam General Appearance: Alert, Oriented X3, Cooperative, No Acute Distress Neck: Supple, No JVD Cardiovascular: Regular Rate, Normal S1, Normal S2, No Murmurs Lungs: Clear to Auscultation, Normal Air Movement Abdomen: Normal Bowel Sounds, Soft, No Tenderness Current Medications: Current Medications Sig/Elian Start time Last Medication Dose Route Stop Time Status Admin Acetaminophen 650 MG Q6 02/25 2359 AC 02/26 PO 0601 Acetaminophen 0 .STK-MED ONE 02/25 2151 DC PO Aspirin 81 MG DAILY 02/26 900 AC PO Aspirin 81 MG ONCE ONE 02/25 1200 DC 02/25 PO 02/25 1201 1325 Atorvastatin Calcium 80 MG 1700 02/25 1700 AC 02/25 PO 1853 Heparin Sodium 5,000 UNIT Q8 02/25 1517 AC 02/26 (Porcine) SC 0601 Pantoprazole Sodium 40 MG DAILY 02/25 0115 AC 02/25 IV 0133 Last 24 Hrs of Lab/Abel Results Last 24 Hrs of Labs/Mics: Laboratory Tests 02/25/18 1400: Troponin I Cancelled Assessment/Plan Assessment: Patient is a 48 year old male with PMH of previous TIA s/p tPA and ICU admission admitted on 02/11/18 and received TPA for symptoms consistent with left MCA infarct with right hemiparesis, status post negative cardiac cath X 3 most recent in 2018, HTN, HLD who presented to ED found to have increasing headache, slurred speach and episode of weakness at dinner on night of admission. Patients CT head on admission negative for any acute intracranial pathology. HEAD CT: No acute intracranial abnormality. CT Abd/Pelvis: Normal appendix. No acute or other significant abnormality is identified to explain patient's symptoms. Troponins peaked at 0.31, trended down to 0.29 Swallow eval recommended regular diet with thin liquids. Patient denied recent stressors at home, but embolic workup negative thus far. PROBLEM LIST: 1. Possibly evolving stroke s/p tPA 02/11/18 VS. TIA VS. Conversion disorder 2. Elevated Troponins (Chronically elevated, H/O cath x3, negative) 3. Abdominal Pain (negative CT abd/pelvis) PLAN: * Follow-up neurology consult (ER spoke with ), Dr. De Paz was re- consulted this morning * Follow-up EEG * Fall/Aspiration Precaution * IV protonix given abdominal pain likely 2/2 to NSAID use for recent headaches * Cardiology work-up for possible source of embolization, recent work-up for historically elevated troponin negative Code Status: Full Code DVT PPx: Heparin Sc Diet: NPO until formal evaluation Problem List: 1. TIA (transient ischemic attack) 2. Lower abdominal pain, unspecified Pain Ratin Pain Location: none Pain Goal: Pain 4 or less Pain Plan: per pathway Tomorrow's Labs & Rationales: CBC & BEP Abran HIRSCH,Sal 02/26/18 1153: Attending MD Review Statement Attending Statement Attending MD Statement: examined this patient, discuss w/resident/PA/MANAGER HOUSEKEEPING, agreed w/resident/PA/MANAGER HOUSEKEEPING, reviewed EMR data (avail), discussed with nursing, discussed with case mgmt, amended to note Attending Assessment/Plan: Patient seen and examined. Resting comfortably not in any acute distress. No issues overnight. No events on telemetry monitoring. He is alert and oriented x3 and offers no complaints today. On examination he has no focal neurologic deficit. Nursing staff reports that he is ambulating freely without need for any assistive device. Etiology of his symptoms is unclear at this time. Last month he presented with right hemiparesis although he had no radiologic evidence of an infarct both on CT scan and MRI he did receive TPA with reported resolution of his symptoms. CT angiogram of the head and neck also showed no evidence of significant carotid artery disease. He presented again with similar symptoms this admission and again neuroimaging was negative with a CT scan done on presentation. Had MRI done today shows no acute intracranial findings. No acute infarcts. 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 Case was discussed with the neurology service on the phone by the ER staff on presentation. Dr. Coelho who recommended against administering CPR at that time. Patient's symptoms have since resolved. His recurrent symptoms he is prompting further diagnostic workup. The cardiology service recommended obtaining Dopplers of lower extremity which were negative. The cardiology service is also recommending either a transthoracic echocardiogram with bubble study of a transesophageal echocardiogram depending on the recommendation of the neurology service. Currently no clear etiology has been found for his recurrent right-sided weakness. Patient does not appear to have an ulterior motive to reporting these symptoms. We are currently awaiting evaluation by the neurology service. He does have chronically elevated Troponin levels related to myopericarditis he has had in the past. He does have an implantable loop recorder however currently awaiting results of interrogation. He had report of abdominal pain on presentation. Abdominal CT scan shows no evidence of an acute pathology. Recommendations: -No indication for continued telemetry monitoring at present. Follow-up with the cardiology service. -Awaiting evaluation from the neurology service. He does give a history of migraines-. Denies any so far today. Unclear if his hemiparesis is related to these migraines. -Discharge planning will be based on evaluation from the neurology service. -
[2018-02-26 06:33] VITALS: BP 110/68
--- NOTE | 2018-02-26 09:54 | MRI REPORT ---
MR BRAIN WITHOUT IV CONTRAST CLINICAL INFORMATION: Evaluate for ischemic stroke. COMPARISON: Head CT 02/24/2018 and brain MRI 02/12/2018. TECHNIQUE: MRI of the brain without contrast was obtained using routine sequences. FINDINGS: There is no hydrocephalus, extra-axial surface collection, or herniation. Accounting for artifact, no definite true parenchymal signal abnormality is appreciated. Small 3 mm lipoma located along the anteroinferior aspect of the mamillary bodies. The major flow voids at the skull base are preserved. There is no acute infarct on diffusion-weighted imaging. There is no intracranial hemorrhage on the gradient recalled echo acquisition. The midline structures are normal. The cerebellar tonsils are normally positioned. The cerebellum and brainstem are normal. The craniocervical junction is normal. Osseous marrow signal intensity is homogenous. The visualized soft tissues are unremarkable. There is mild mucosal thickening within the right maxillary sinus and the remaining paranasal sinuses and the mastoid air cells are clear. IMPRESSION: - No acute intracranial findings. No acute infarcts. - Small incidental 3 mm lipoma located along the anteroinferior aspect of the mamillary bodies.
--- NOTE | 2018-02-26 11:18 | Patient Discharge Instructions ---
Discharge Instructions General Discharge Information You were seen/treated for: R sided weakness Possible TIA Special Instructions: Please follow upw with your Software Asset Manager and Neurologist within a week after discharge. Diet Continue normal diet: Yes Recommended Diet: Heart Healthy Activity Full Activity/No Limits: Yes Activity Self Limited: Yes Acute Coronary Syndrome Inclusion Criteria At DC or during hospital stay patient has or had the following: ACS DIAGNOSIS No Discharge Core Measures Meds if any: Prescribed or Continued at Discharge Meds if any: NOT Prescribed or Continued at Discharge Congestive Heart Failure Inclusion Criteria At DC or during hospital stay patient has or had the following: CHF DIAGNOSIS No Discharge Core Measures Meds if any: Prescribed or Continued at Discharge Meds if any: NOT Prescribed or Continued at Discharge Cerebrovascular accident Inclusion Criteria At DC or during hospital stay patient has or had the following: CVA/TIA Diagnosis No Discharge Core Measures Meds if any: Prescribed or Continued at Discharge Meds if any: NOT Prescribed or Continued at Discharge Venous thromboembolism Inclusion Criteria VTE Diagnosis No VTE Type NONE VTE Confirmed by (Test) NONE Discharge Core Measures - Per Current guidelines, there needs to be overlap - treatment for the first 5 days of Warfarin therapy. - If discharged on Warfarin prior to 5 days of - overlap therapy, the patient will need to be - assessed for post discharge needs including - *Post discharge parental anticoagulation - *Warfarin and/or parental anticoagulation education - *Follow up date to check INR post discharge At least 5 days overlap therapy as Inpatient No Meds if any: Prescribed or Continued at Discharge Note: Overlap Therapy is Warfarin and Anticoagulant Meds if any: NOT Prescribed or Continued at Discharge
--- NOTE | 2018-02-26 12:56 | PN- Cardiology ---
Subjective Subjective: Patient denies chest pain, palpitations, dyspnea, orthopnea, recurrent weakness. Objective Vital Signs and I&Os Vital Signs Date Time Temp Pulse Resp B/P B/P Pulse O2 O2 Flow FiO2 Mean Ox Delivery Rate 02/26 0633 98.6 59 20 110/68 94 Room Air 02/25 2133 98.6 70 20 116/80 96 Room Air 02/25 1500 98.4 60 20 122/82 97 Room Air Intake & Output 02/26 0000 02/25 1600 02/25 0000 Intake Total 240 240 Output Total 800 300 600 350 Balance -800 -60 -360 -350 Intake, Oral 240 240 Number 0 Bowel Movements Output, Urine 800 300 600 350 Patient 103.051 kg 103.022 kg 100.698 kg 103.873 kg Weight Weight Bed scale Reported by Patient Reported by Patient Measurement Method Physical Exam: General: no apparent distress HEENT: NCAT, NO JVD Heart: s1s2, RRR, no MRG Lungs: CTA b/l Abd: soft, nt Ext: no peripheral edema Current Medications: Current Medications Sig/Elian Start time Last Medication Dose Route Stop Time Status Admin Acetaminophen 650 MG Q6 02/25 2359 AC 02/26 PO 1242 Acetaminophen 0 .STK-MED ONE 02/25 2151 DC PO Aspirin 81 MG DAILY 02/26 0900 AC 02/26 PO 0956 Atorvastatin Calcium 80 MG 1700 02/25 1700 AC 02/25 PO 1853 Enoxaparin Sodium 40 MG DAILY 02/26 1118 AC SC Heparin Sodium 5,000 UNIT Q8 02/25 1517 DC 02/26 (Porcine) SC 0601 Pantoprazole Sodium 40 MG DAILY 02/25 0115 AC 02/26 IV 0955 Results Last 48 Hrs of Labs/Mics: Laboratory Tests 02/26/18 0630: Anion Gap 9, Estimated GFR > 60, BUN/Creatinine Ratio 15.5 02/25/18 1400: Troponin I Cancelled 02/25/18 0639: Troponin I 0.29 *H 02/24/18 2200: Anion Gap 9, Estimated GFR 59 L, BUN/Creatinine Ratio 13.8, Glucose 132 H, Calcium 9.0, Total Bilirubin 0.5, AST 24, ALT 38, Alkaline Phosphatase 71, Troponin I 0.31 *H, Total Protein 6.6, Albumin 3.9, Globulin 2.7, Albumin/ Globulin Ratio 1.4, CBC w Diff NO MAN DIFF REQ, RBC 4.89, MCV 90.5, MCH 30.3, MCHC 33.5, RDW 12.6, MPV 10.4, Gran % 68.2, Lymphocytes % 20.1 L, Monocytes % 9.9 H, Eosinophils % 1.6, Basophils % 0.2, Absolute Granulocytes 4.7, Absolute Lymphocytes 1.4, Absolute Monocytes 0.7 H, Absolute Eosinophils 0.1, Absolute Basophils 0 Recent Imaging Studies: LE venous duplex 02/25/2018: No evidence of deep venous thrombosis involving the bilateral lower extremities. MRI brain 02/25/2018: - No acute intracranial findings. No acute infarcts. - Small incidental 3 mm lipoma located along the anteroinferior aspect of the mamillary bodies. Transthoracic echo w bubble study 02/26/2018: no interatrial shunt Telemetry personally reviewed: Normal sinus rhythm with periods of sinus bradycardia Assessment/Plan Assessment/Plan 1. Possible TIA 2. History of MCA CVA s/p tpa infusion 3. History of recurrence myopericarditis with chronic troponin elevation and multiple negative cardiac catheterizations 4. History of recurrent syncope status post implantable loop recorder with no prior events detected 5. History of hypertension 6. History of renal cell carcinoma with prior nephrectomy 7. History of cervical stenosis with prior fusion 8. Sinus bradycardia Patient presented with possible TIA, neurological symptoms have resolved. No infarct on MRI brain. Mildly elevated troponin in the absence of chest pain and EKG changes in this patient who has a history of repeatedly mildly elevated troponin is likely consistent with his chronic troponin elevations. No indication for repeat cardiac catheterization at this time. BP is not elevated. No shunt on tranthoracic echo w bubble study. No DVT on lower extremity duplex. At this time would recommend to continue with telemetry. Follow-up with neurology. Continue telemetry? Yes
[2018-02-26 14:18] VITALS: BP 110/72
[2018-02-26 18:19] VITALS: BP 136/74
--- NOTE | 2018-02-26 19:58 | ELECTROENCEPHALOGRAM REPORT ---
Electroencephalogram Report Electroencephalogram Results Date of service: 02/26/18 Attending MD: Sal Osullivan MD Pasteuriser Operator: Tanisha Pastor EEG Number: [id number] Test Utilizes: 10-20 system, 21 lead 18 channel digital recording Pertinent Hx/Physical/Neuro Findings/Clin Diagnosis: evaluation for seizures Inpatient Medications: Current Medications Sig/Elian Start time Last Medication Dose Route Stop Time Status Admin Acetaminophen 650 MG Q6 02/25 2359 AC 02/26 PO 1854 Acetaminophen 0 .STK-MED ONE 02/25 2151 DC PO Aspirin 81 MG DAILY 02/26 0900 AC 02/26 PO 0956 Atorvastatin Calcium 80 MG 1700 02/25 1700 AC 02/26 PO 1655 Enoxaparin Sodium 40 MG DAILY 02/26 1118 AC 02/26 SC 1409 Heparin Sodium 5,000 UNIT Q8 02/25 1517 DC 02/26 (Porcine) SC 0601 Pantoprazole Sodium 40 MG DAILY 02/25 0115 AC 02/26 IV 0955 Interpretation: Background: well formed low amplitude 9-10 hz posterior alpha which attenuates on eye opening and frontally dominant low amplitude beta Drowsiness and sleep: slowing into the theta and delta range with vertex waves, spindling and K-complexes transients: no focal, lateralized or epileptiform abnormalities activation: Hyperventilation and photic stimulation unremarkable Impression: Normal in wakefulness, drowsiness and sleep
[2018-02-26 21:55] VITALS: BP 120/80
[2018-02-27 06:45] VITALS: BP 100/82
--- NOTE | 2018-02-27 06:52 | Transfer of Care Summary ---
Hospital Course Course Hospital Course: Patient is a 48 year old male with past medical history of hypertension, hyperlipidemia, status post cardiac cath 2011/2014/2017, who presented to ED for headache, slurred speech and weakness at home. History provided by patients at bedside on assessment and small conversation with nevin who was present with patient at the time of incidence given patients mute status. Of note, patient recently admitted on 02/11/18 and received TPA for symptoms consistent with left MCA infarct with right hemiparesis. Patient had complete resolution of symptomss after TPA at that time with normal imaging. Patient was admitted to ICU at that time for monitoring after tPA. MRI 24 hours after tPA did not demonstrated signs of acute/chronic infarct or ICH and patient was dischargged home on aspirin and statin. 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 He has noticed increased headaches described to be "migraines" by his . Patient seen to hold his hand in his head more often. Otherwise, he was in his usual state of health until dinner time on night of admission around 1930 he stood up from chair, dropped phone out of his right hand, stood against wall and was unable to speak. Patients daughter stated he was extremely weak at this time and was non-verbal and she brought him to the ED around 2100. Patient reported to have abdominal pain today as well but was able to swallow/eat dinner fine. Patient quit smoking in 2003 and noted to be an occasional drinker. 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 Pertinent Lab Results: Echocardiogram: Normal global left ventricular size, wall thickness, systolic function with no obvious regional wall motion abnormalities. Normal left ventricular ejection fraction visually estimated at 60-65 %. Normal left ventricular diastolic filling pattern for age. Normal left atrial size. No auqpv-ot-vrmn shunt seen at the atrial level with agitated saline contrast injection. MRI Brain: - No acute intracranial findings. No acute infarcts. - Small incidental 3 mm lipoma located along the anteroinferior aspect of the mamillary bodies. BLE Venous Doppler: No evidence of deep venous thrombosis involving the bilateral lower extremities. CT Abdomen/Pelvis: 1. Normal appendix. 2. No acute or other significant abnormality is identified to explain patient's symptoms. 3. Stable postsurgical changes of right nephrectomy. CT Head: No acute intracranial abnormality. Assessment/Plan: 1. Possibly evolving stroke s/p tPA 02/11/18 VS. TIA VS. Conversion disorder 2. Elevated Troponins (Chronically elevated, H/O cath x3, negative) 3. Abdominal Pain (negative CT abd/pelvis) PLAN: * Follow-up neurology consult (ER spoke with ), Dr. De Paz was re- consulted February 26 * Fall/Aspiration Precaution * IV protonix given abdominal pain likely 2/2 to NSAID use for recent headaches Code Status: Full Code DVT PPx: Heparin Sc
--- NOTE | 2018-02-27 08:57 | ECHOCARDIOGRAM REPORT ---
JAKOB GARLAND Age: 48 : 1970 Gender: M Exam Date: 02/26/2018 11:29 Exam Location: [address] Ht (in): 73 Wt (lb): 222 BSA: 2.30 BP: 112 / 64 Ordering Physician: Shaquille Adair MD Referring Physician: Shaquille Adair MD Technologist: Rommel Liu [facility] Room Number: [id number] Indications: Source of embolus Rhythm: Sinus Technical Quality: Fair FINDINGS Left Ventricle Normal global left ventricular size, wall thickness, systolic function with no obvious regional wall motion abnormalities. Normal left ventricular ejection fraction visually estimated at 60-65 %. Normal left ventricular diastolic filling pattern for age. Right Ventricle Normal right ventricular size and function. Right Atrium Normal right atrial size. Left Atrium Normal left atrial size. No [id number]-gp-[id number] shunt seen at the atrial level with agitated saline contrast injection. Mitral Valve Structurally normal mitral valve. No mitral regurgitation. No mitral stenosis. Aortic Valve Aortic valve not well visualized, grossly normal. No aortic stenosis. No aortic regurgitation. Tricuspid Valve Structurally normal tricuspid valve. There is trace tricuspid regurgitation. Pulmonic Valve Pulmonic valve not well visualized. No pulmonic stenosis. No pulmonic regurgitation. Pericardium No pericardial effusion. Great Vessels Normal size aortic root and proximal ascending aorta. CONCLUSIONS Normal global left ventricular size, wall thickness, systolic function with no obvious regional wall motion abnormalities. Normal left ventricular ejection fraction visually estimated at 60-65 %. Normal left ventricular diastolic filling pattern for age. Normal left atrial size. No [id number]-dt-[id number] shunt seen at the atrial level with agitated saline contrast injection. Dr. Swapnil Coelho (Electronically Signed) Final Date: 27 February 2018 08:56 MEASUREMENTS (Male / Female) Normal Values 2D ECHO LV Diastolic Diameter PLAX 5.0 cm 4.2 - 5.9 / 3.9 - 5.3 cm LV Systolic Diameter PLAX 3.2 cm 2.1 - 4.0 cm LV Fractional Shortening PLAX 36.0 % 25 - 46 % LV Ejection Fraction 2D Teich 65.4 % IVS Diastolic Thickness 1.0 cm LVPW Diastolic Thickness 1.0 cm LV Relative Wall Thickness 0.4 RV Internal Dim ED PLAX 3.0 cm 1.9 - 3.8 cm LVOT Diameter 2.0 cm Aortic Root Diameter 2.5 cm LA Systolic Diameter LX 3.5 cm 3.0 - 4.0 / 2.7 - 3.8 cm LA Volume 40.0 cm 18 - 58 / 22 - 52 cm Ascending Aorta Diameter 2.9 cm DOPPLER AV Peak Velocity 128.0 cm/s AV Peak Gradient 6.6 mmHg AV Mean Velocity 91.2 cm/s AV Mean Gradient 4.0 mmHg AV Velocity Time Integral 30.0 cm LVOT Peak Velocity 112.0 cm/s LVOT Peak Gradient 5.0 mmHg LVOT Mean Velocity 64.5 cm/s LVOT Mean Gradient 2.0 mmHg LVOT Velocity Time Integral 21.7 cm LVOT Stroke Volume 68.2 cm AV Area Cont Eq vti 2.3 cm AV Area Cont Eq pk 2.7 cm MV Peak Velocity 96.5 cm/s MV Peak Gradient 3.7 mmHg MV Mean Velocity 48.3 cm/s MV Mean Gradient 1.0 mmHg Mitral E Point Velocity 73.1 cm/s Mitral A Point Velocity 36.5 cm/s Mitral E to A Ratio 2.0 MV PHT Velocity 103.0 cm/s MV Deceleration Irion 321.0 cm/s MV Pressure Half Time 96.3 ms MV Area PHT 2.3 cm MV Deceleration Time 306.0 ms PV Peak Velocity 110.0 cm/s PV Peak Gradient 4.8 mmHg PV Mean Velocity 74.0 cm/s PV Mean Gradient 3.0 mmHg PV Velocity Time Integral 26.0 cm LV E' Lateral Velocity 13.1 cm/s Mitral E to LV E' Lateral Ratio 5.6 LV E' Septal Velocity 11.9 cm/s Mitral E to LV E' Septal Ratio 6.1
[2018-02-27] MEDS ORDERED: ITCH RELIEF CRE28 GM TOP (10:39)
--- NOTE | 2018-02-27 10:44 | PN- Att Addend ---
Attending Addendum Attending Brief Note Patient seen and examined. Agree with interns note. We discussed the plan with the entire team. This is a 48-year-old male with a past medical history of TIA, recent CVA status post TPA in February 11 and history of myopericarditis with negative cardiac cath. He came in with what sounded like strokelike symptoms. All of his workup to date including his EEG and MRI have been negative. He has no residual deficit and is eager to go home. I called Dr. Fountain and spoke to him. Given that he has no deficit and his MRI is normal, Dr. Fountain does not feel that the [facility] is needed as an inpatient at this point. He will see him in the office -the patient already has an appointment to see him and will follow-up as an outpatient.
--- NOTE | 2018-02-27 11:15 | PN- Cardiology ---
Subjective Subjective: Patient seen at bedside. Patient denies chest pain, palpitations, dyspnea, PND/ orthopnea, lightheadedness/dizziness. States he feels well and wants to go home. Objective Vital Signs and I&Os Vital Signs Date Time Temp Pulse Resp B/P B/P Pulse O2 O2 Flow FiO2 Mean Ox Delivery Rate 02/27 0645 98.0 64 16 100/82 92 02/26 2155 98.1 74 16 120/80 95 Room Air 02/26 1819 98.6 57 16 136/74 96 Room Air 02/26 1418 98.0 78 18 110/72 96 Intake & Output 02/27 1600 02/27 0802/27 0000 02/26 1600 02/26 0802/26 0000 Intake Total 120 310 480 240 Output Total 1925 300 Balance 120 310 -1445 -60 Intake, IV 10 Intake, Oral 120 300 480 240 Output, Urine 1925 300 Patient 103.051 kg 103.022 kg Weight Weight Bed scale Measurement Method Physical Exam: General: no apparent distress HEENT: NCAT, NO JVD Heart: s1s2, RRR, no MRG Lungs: CTA b/l Abd: soft, nt Ext: no peripheral edema Current Medications: Current Medications Sig/Elian Start time Last Medication Dose Route Stop Time Status Admin Acetaminophen 650 MG Q6 02/25 2359 AC 02/27 PO 0519 Aspirin 81 MG DAILY 02/26 0900 AC 02/27 PO 0859 Atorvastatin Calcium 80 MG 1700 02/25 1700 AC 02/26 PO 1655 Diphenhydramine HCl 1 DARINEL DAILY PRN 02/27 1045 AC TOP Enoxaparin Sodium 40 MG DAILY 02/26 1118 AC 02/27 SC 0859 Heparin Sodium 5,000 UNIT Q8 02/25 1517 DC 02/26 (Porcine) SC 0601 Pantoprazole Sodium 40 MG DAILY 02/25 0115 AC 02/27 IV 0859 Results Last 48 Hrs of Labs/Mics: Laboratory Tests 02/26/18 0630: Anion Gap 9, Estimated GFR > 60, BUN/Creatinine Ratio 15.5 02/25/18 1400: Troponin I Cancelled Recent Imaging Studies: TTE 02/26/2018: Normal global left ventricular size, wall thickness, systolic function with no obvious regional wall motion abnormalities. Normal left ventricular ejection fraction visually estimated at 60-65 %. Normal left ventricular diastolic filling pattern for age. Normal left atrial size. No vlmfm-co-bogs shunt seen at the atrial level with agitated saline contrast injection. The patient is not currently on telemetry Assessment/Plan Assessment/Plan 1. Possible TIA 2. History of MCA CVA s/p tpa infusion 3. History of recurrence myopericarditis with chronic troponin elevation and multiple negative cardiac catheterizations 4. History of recurrent syncope status post implantable loop recorder with no prior events detected 5. History of hypertension 6. History of renal cell carcinoma with prior nephrectomy 7. History of cervical stenosis with prior fusion 8. Sinus bradycardia Patient presented with possible TIA, neurological symptoms have resolved. Pt is asymptomatic. No infarct on MRI brain. Mildly elevated troponin in the absence of chest pain and EKG changes in this patient who has a history of repeatedly mildly elevated troponin is likely consistent with his chronic troponin elevations. No indication for repeat cardiac catheterization at this time. BP is not elevated. No shunt on tranthoracic echo w bubble study. No DVT on lower extremity duplex. Follow-up with neurology. Continue telemetry? No
--- NOTE | 2018-02-27 11:49 | Discharge Summary ---
Visit Information Visit Dates Admission Date: 02/24/18 Hospital Course Course Attending Physician: Brandon HIRSCH,Maddie Abbott Primary Care Physician: Chris HIRSCH,Gisel Allergies: Coded Allergies: Penicillins (ITCH 02/11/18) poison joelle extract (LIPS SWELL, HIVES, BREATHING IS NOT AFFECTED PER PT ) poison oak extract (LIPS SWELL, HIVES, BREATHING NOT AFFECTED PER PT 02/11/18) poison sumac extract (LIPS SWELL, HIVES, BREATHING NOT AFFECTED PER PT 02/11/18) Discharge Instructions Medications at Discharge Discharge Medications: Continue taking these medications: Paroxetine HCl (Paroxetine HCl) 30 MG TABLET 1 Tablet ORAL Every Morning Qty = 30 Comments: not given in hospital Pantoprazole Sodium (Pantoprazole Sodium) 40 MG TABLET.DR 1 Tablet ORAL DAILY Qty = 30 Comments: NOT GIVEN IN HOSPITAL Atorvastatin Calcium (Atorvastatin Calcium) 80 MG TABLET 80 Milligram ORAL 5 PM Qty = 30 Instructions: . Comments: Last Taken:02/13/18 Time:440pm Aspirin (Aspirin*) 81 MG TAB.CHEW 81 Milligram ORAL DAILY Qty = 30 Instructions: . Comments: Last Taken:02/14/18 Time:1000am Start taking the following new medications: Diphenhydramine HCl/Zinc Acet (Itch Relief Cream) 2 %-0.1 % CREAM..G. 1 Application On the skin DAILY as needed for ITCHING Qty = 7 No Refills Instructions: Please apply to affected area on right side of face for itching daily
--- NOTE | 2018-02-27 14:56 | PN- Housestaff ---
Subjective Follow-up For: R sided weakness Possible TIA Subjective: Afebrile overnight. Patient had no acute events overnight. Patient states he has been having a small facial rash with minimal pruritus. Patient states he is feeling better today otherwise with no complaints of weakness or lightheadedness. Patient otherwise has no new concerns today and wants to be discharged home as soon as possible. Review of Systems Constitutional: Reports: see HPI. Objective Last 24 Hrs of Vital Signs/I&O Vital Signs Date Time Temp Pulse Resp B/P B/P Pulse O2 O2 Flow FiO2 Mean Ox Delivery Rate 02/27 0645 98.0 64 16 100/82 92 02/26 2155 98.1 74 16 120/80 95 Room Air 02/26 1819 98.6 57 16 136/74 96 Room Air Intake & Output 02/27 1600 02/27 0800 02/27 0000 Intake Total 120 310 Output Total Balance 120 310 Intake, IV 10 Intake, Oral 120 300 Physical Exam General Appearance: Alert, Oriented X3, Cooperative, No Acute Distress HEENT: Atraumatic, PERRLA Neck: Supple, No JVD Cardiovascular: Regular Rate, Normal S1, Normal S2 Lungs: Clear to Auscultation Abdomen: Soft, No Tenderness Neurological: Normal Speech Assessment/Plan Assessment: Patient is a 48 year old male with PMH of previous TIA s/p tPA and ICU admission admitted on 02/11/18 and received TPA for symptoms consistent with left MCA infarct with right hemiparesis, status post negative cardiac cath X 3 most recent in 2018, HTN, HLD who presented to ED found to have increasing headache, slurred speach and episode of weakness at dinner on night of admission. Patients CT head on admission negative for any acute intracranial pathology. HEAD CT: No acute intracranial abnormality. CT Abd/Pelvis: Normal appendix. No acute or other significant abnormality is identified to explain patient's symptoms. Troponins peaked at 0.31, trended down to 0.29 Swallow eval recommended regular diet with thin liquids. Patient denied recent stressors at home, but embolic workup negative thus far. 1. Possibly evolving stroke s/p tPA 02/11/18 VS. TIA VS. Conversion disorder 2. Elevated Troponins (Chronically elevated, H/O cath x3, negative) 3. Abdominal Pain (negative CT abd/pelvis) Plan: * Follow-up neurology consult; no neuro note as of now * Follow-up EEG * Fall/Aspiration Precaution; patient currently ambulating properly * IV protonix given abdominal pain likely 2/2 to NSAID use for recent headaches * Recent work-up for historically elevated troponin negative Code Status: Full Code DVT PPx: Heparin Sc Problem List: 1. TIA (transient ischemic attack) 2. Lower abdominal pain, unspecified Pain Ratin Pain Location: na Pain Goal: Remain pain free Pain Plan: na Tomorrow's Labs & Rationales: na
== END 2018-02-27 12:58 | DRG 69 ==
LOC: ERH 21:32 → 1NO 23:52 → ERHI 23:52 → EDBEDREQ 02-25 00:49 → ENRESERV 02-25 01:11 → 1NO 02-25 01:52 → ENTRNSPT 02-26 17:26 → EDTRNSPT 02-26 17:44 → EDTRNSPTSTS 02-26 17:44 → 2NB 02-26 17:57 → CMPTRNSPT 02-26 18:20 → 2NB 02-27 10:04 → ENPENDDIS 02-27 11:12 → 2NB 02-27 12:58
PROVIDERS: Emergency Medicine
DX: G45.9 Transient cerebral ischemic attack, unspecified (principal); I10 Essential (primary) hypertension; E78.5 Hyperlipidemia, unspecified; G47.33 Obstructive sleep apnea (adult) (pediatric); B19.20 Unspecified viral hepatitis C without hepatic coma; R00.1 Bradycardia, unspecified; Z79.82 Long term (current) use of aspirin
CPT/HCPCS: 1NP; 2NBP; 70551; ERO; 36592; 74177; 82436; 93005; 93010; 93306; 93970; 95816; 96374; 97116-GO; 97161-GP; J0131; J1644; J1650; J3490